=== PATIENT | male | born 1960 | race African-American/Black ===

== ENCOUNTER 2018-12-31 10:52 | Inpatient (IN) | payer OTHER ==
[2018-12-31 12:20] VITALS: BMI 23.6
--- NOTE | 2018-12-31 17:29 | HP ---
COWS - Scale Resting Pulse: 0= [place] 80 or Below Sweatin=Flushed/Facial Moisture Restless Observation: 1= Difficult to Sit Still Pupil Size: 1= Pupils >than Normal Bone or Joint Aches: 1= Mild Discomfort Runny Nose/ Eye Tearin= None GI Upset > 30mins: 3= Vomiting/Diarrhea Tremor Observation: 2= Slight Tremor Visible Yawning Observation: 0= None Anxiety or Irritability: 1=Feels Anxious/Irritable Goose Flesh Skin: 0=Smooth Skin COWS Score: 11 CIWA Score Nausea/Vomitin-Int. Nausea w/Dry Heave Muscle Tremors: 2 Anxiety: 2 Agitation: 2 Paroxysmal Sweats: 3 Orientation: 1-Uncertain about Date Tacttile Disturbances: 0-None Auditory Disturbances: 0-None Visual Disturbances: 0-None Headache: 2-Mild CIWA-Ar Total Score: 16 - Admission Criteria [facility] Guidelines: Admission for Medically Managed Detox: Requires at least one of the followin. CIWA greater than 12 2. Seizures within the past 24 hours 3. Delirium tremens within the past 24 hours 4. Hallucinations within the past 24 hours 5. Acute intervention needed for co occurring medical disorder 6. Acute intervention needed for co occurring psychiatric disorder 7. Severe withdrawal that cannot be handled at a lower level of care (continued vomiting, continued diarrhea, abnormal vital signs) requiring intravenous medication and/or fluids 8. Patient presents the following: CIWA greater than 12 Admission Criteria Met: Admission criteria met Admission ROS [facility] Chief Complaint: Ren Schrader is a 58 year old male presenting for alcohol and heroin. Allergies/Adverse Reactions: Allergies Allergy/AdvReac Type Severity Reaction Status Date / Time No Known Allergies Allergy Verified 12/31/18 12:07 History of Present Illness: Ren Schrader is a 58 year old male presenting for alcohol and heroin. Heroin: 4 bags/day. Uses daily. Last use was yesterday. Denies recent IVDU. Had overdose 3 days ago, was given Narcan. Denies having Narcan kit at home. Longest period of sobriety: 6 years. Relapsed in May because of recent loss of father. Has never been on a methadone maintenance program or on suboxone. Alcohol: 1.5-2 pints per day, 12 pack at least per day. Drinks every day. Last drink was yesterday. Endorses history of seizure. Endorses blackout, falls, head hits. Cocaine: 100-350$ per day. Last use was yesterday. Marijuana: 2-3 blunts per day. Has been to detox in the past. Has completed rehab in the distant past. After detox patient states he wants to complete a rehab program, inpatient program. Medical History: HTN, COPD, asthma Psychiatric History: depression/anxiety Surgical History: denies Smokin cigarettes per day since age 24 Social: apartment, lives with . SSI to pay for drugs and alcohol. Was briefly at [place] [facility] for assessment and deemed more appropriate for detox than psychiatric admission. Was stable for discharge to detox. Will be admitted for alcohol and heroin detox in the setting of multiple medical comorbidities. Exam Limitations: No Limitations - Ebola screening Have you traveled outside of the country in the last 21 days: No Have you had contact with anyone from an Ebola affected area: No Do you have a fever: No - Review of Systems Constitutional: Chills, Loss of Appetite, Changes in sleep EENT: reports: Nose Congestion Respiratory: reports: No Symptoms reported Cardiac: reports: No Symptoms Reported GI: reports: Nausea, Vomiting : reports: No Symptoms Reported Musculoskeletal: reports: Back Pain, Other (hip pain) Integumentary: reports: No Symptoms Reported Neuro: reports: Headache Endocrine: reports: No Symptoms Reported Hematology: reports: No Symptoms Reported Psychiatric: reports: Judgement Intact, Anxious Patient History - Patient Medical History Hx Anemia: No Hx Asthma: Yes Hx Chronic Obstructive Pulmonary Disease (COPD): Yes Hx Cancer: No Hx Cardiac Disorders: No Hx Congestive Heart Failure: No Hx Hypertension: Yes Hx Hypercholesterolemia: No Hx Pacemaker: No HX Cerebrovascular Accident: No Hx Seizures: Yes Hx Dementia: No Hx Diabetes: No Hx Gastrointestinal Disorders: No Hx Liver Disease: No Hx Genitourinary Disorders: No Hx Sexually Transmitted Disorders: No Hx Renal Disease (ESRD): No Hx Thyroid Disease: No Hx Human Immunodeficiency Virus (HIV): No Hx Hepatitis C: No Hx Depression: Yes Hx Suicide Attempt: No Hx Bipolar Disorder: No Hx Schizophrenia: No - Patient Surgical History Past Surgical History: No Hx Neurologic Surgery: No Hx Cataract Extraction: No Hx Cardiac Surgery: No Hx Lung Surgery: No Hx Breast Surgery: No Hx Breast Biopsy: No Hx Abdominal Surgery: No Hx Appendectomy: No Hx Cholecystectomy: No Hx Genitourinary Surgery: No Hx Section: No Hx Orthopedic Surgery: No - PPD History Previous Implant?: No PPD to be Administered?: Yes - Smoking Cessation Smoking history: Current every day smoker Have you smoked in the past 12 months: Yes Aproximately how many cigarettes per day: 15 Initiated information on smoking cessation: Yes 'Breaking Loose' booklet given: 12/31/18 - Substance & Tx. History Hx Alcohol Use: Yes Hx Substance Use: Yes Substance Use Type: Alcohol, Cocaine, Heroin, Marijuana - Substances abused Alcohol Substance route: Oral Frequency: Daily Amount used: 1 pint vodka, 12 pack of beer daily Age of first use: 25 Date of last use: 12/30/18 Heroin Other (specify): SNIFF Frequency: Daily Amount used: 5 BAGS Age of first use: 33 Date of last use: 12/30/18 Cocaine Substance route: Inhalation Frequency: Daily Amount used: 100-350$ Date of last use: 12/30/18 Marijuana/Hashish Substance route: Smoking Frequency: Daily Amount used: 2-3 blunts Date of last use: 12/30/18 Admission Physical Exam BHS - Vital Signs Vital Signs: Vital Signs - 24 hr 12/31/18 12/31/18 12:07 17:08 Temperature 97.4 F L 97.4 F L Pulse Rate 61 61 Respiratory 18 18 Rate Blood Pressure 116/73 116/73 - Physical General Appearance: Yes: Disheveled, Mild Distress HEENTM: Yes: EOMI, Normocephalic, Normal Voice, DENIS, Pharynx Normal, Microcephalic Respiratory: Yes: Chest Non-Tender, Normal Breath Sounds, No Respiratory Distress, No Accessory Muscle Use Neck: Yes: No masses,lesions,Nodules, Trachea in good position Breast: Yes: Breast Exam Deferred Cardiology: Yes: Regular Rhythm, Regular Rate, S1, S2 Abdominal: Yes: Normal Bowel Sounds, Non Tender, Flat, Soft Genitourinary: Yes: Within Normal Limits Back: Yes: Normal Inspection Musculoskeletal: Yes: full range of Motion Extremities: Yes: Normal Capillary Refill, Normal Inspection, Normal Range of Motion, Non-Tender 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: 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: 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 NML intact, Alert, Motor Strength 5/5, Normal Mood /Affect Integumentary: Yes: Dry, Warm, Other (palms dry and cracking RLE with stitches s /p wound) Cleared for Admission [facility] - Detox or Rehab [facility] Level of Care: Medically Managed Detox Regimen/Protocol: Methadone/Librium Breathalyzer - Breathalyzer Breathalyzer: 0 Urine Drug Screen - Test Device Lot number: [id number] Expiration date: 08/28/20 - Control Is test valid?: Yes - Results Drug screen NEGATIVE: No Urine drug screen results: THC-Marijuana, ARNULFO-Cocaine, FEN-Fentanyl, MOP-Opiates Inpatient Rehab Admission - Rehab Decision to Admit Inpatient rehab admission?: No
[2018-12-31] MEDS ORDERED: cloNIDine HCL 0.1 MG TABLET PO PRN (18:00)
[2018-12-31] MEDS ORDERED: chlordiazePOXIDE HCL 25 MG CAPSULE PO PRN (18:00)
[2018-12-31] MEDS ORDERED: MELATONIN 5 MG TABLETS PO PRN (18:00)
[2018-12-31] MEDS ORDERED: MAG HYDROX/AL HYDROX/SIMETH 30 ML UNIT-DOSE CUP PO PRN (18:00)
[2018-12-31] MEDS ORDERED: ACETAMINOPHEN 325 MG TABLET (FP) PO PRN ×2 (18:00)
[2018-12-31] MEDS ORDERED: MENTHOL/PHENOL 1 EACH UD MM PRN (18:00)
[2018-12-31] MEDS ORDERED: MAGNESIUM CITRATE 300 ML BOTTLE PO PRN (18:00)
[2018-12-31] MEDS ORDERED: MAGNESIUM HYDROX 2400MG/30ML ORAL SUSPENSION 30 ML CUP PO PRN (18:00)
[2018-12-31] MEDS ORDERED: hydrOXYzine PAMOATE 25 MG CAPSULE (FP) PO PRN (18:00)
[2018-12-31] MEDS ORDERED: BISMUTH SUBSALICYLATE 524 MG/30 ML UD PO PRN (18:00)
[2018-12-31] MEDS ORDERED: METHADONE HCL 10 MG TABLET (FOR DETOX USE ONLY) PO ONE (19:00)
--- NOTE | 2018-12-31 20:03 | PN ---
Teaching Attending Note Name of Resident: Farhan Vaz ATTENDING PHYSICIAN STATEMENT I saw and evaluated the patient. I reviewed the resident's note and discussed the case with the resident. I agree with the resident's findings and plan as documented. SUBJECTIVE: 58 year old male presenting for alcohol and heroin detox Heroin: 4 bags/day, latest use yesterday. Denies recent IVDU. Had overdose 3 days ago, was given Narcan. Denies having Narcan kit at home. Longest period of sobriety: 6 years. Relapsed in May because of recent loss of father. Has never been on a methadone maintenance program or on suboxone. Alcohol: 1.5-2 pints/ day, 12 pack / day. Cocaine: 100-350$ per day. Latest used yesterday. Marijuana: 2-3 blunts / day. Medical History: HTN, COPD, asthma Psychiatric History: depression/anxiety Surgical History: denies Smokin cigarettes per day since age 24 Social: apartment, lives with . SSI to pay for drugs and alcohol. Was briefly at [place] [facility] for assessment and deemed more appropriate for detox than psychiatric admission. Was stable for discharge to detox. Will be admitted for alcohol and heroin detox in the setting of multiple medical comorbidities. OBJECTIVE: wnwd Vital Signs - 24 hr 12/31/18 12/31/18 12:07 17:08 Temperature 97.4 F L 97.4 F L Pulse Rate 61 61 Respiratory 18 18 Rate Blood Pressure 116/73 116/73 ASSESSMENT AND PLAN: Alcohol dependence - Librium detox Opioid dependence - Methadone detox Cocaine dependence
[2018-12-31] MEDS: chlordiazePOXIDE HCL 25 MG CAPSULE PO SCH (22:09)
[2018-12-31] MEDS: BUDESONIDE/FORMETEROL FUMARATE 160/4.5 mcg INHALER IH SCH (22:09)
[2018-12-31] MEDS: THIAMINE HCL 100 MG TABLET (FP) PO SCH (22:09)
[2018-12-31] MEDS: levETIRAcetam 500 MG TABLET (FP) PO SCH (22:09)
[2019-01-01] MEDS: chlordiazePOXIDE HCL 25 MG CAPSULE PO SCH ×4 (06:29→22:16)
[2019-01-01] MEDS ORDERED: METHADONE HCL 5 MG TABLET (FOR DETOX USE ONLY) PO ONE (10:00)
[2019-01-01] MEDS: BUDESONIDE/FORMETEROL FUMARATE 160/4.5 mcg INHALER IH SCH ×2 (10:24→22:16)
[2019-01-01] MEDS: PRENATAL VITAMINS W/ FOLIC ACID TABLET (FP) PO SCH (10:25)
[2019-01-01] MEDS: levETIRAcetam 500 MG TABLET (FP) PO SCH ×2 (10:25→22:15)
[2019-01-01] MEDS: FLUTICASONE PROP 0.05% 16 GM NASAL SPRAY NS SCH (10:25)
[2019-01-01] MEDS: amLODIPine BESYLATE 5 MG TABLET (FP) PO SCH (10:28)
[2019-01-01] MEDS: NADOLOL 20 MG TABLET (FP) PO SCH (10:28)
[2019-01-01 10:40] LABS: HEMATOCRIT 39.8 % (35.4-49); HEMOGLOBIN 13.5 GM/dL (11.7-16.9); MCH 35.2 pg (25.7-33.7); MCHC 33.9 g/dl (32.0-35.9); MEAN CELL VOLUME 103.9 fl (80-96); MEAN PLT VOLUME 9.7 fl (7.5-11.1); PLATELET COUNT 135 K/MM3 (134-434); RBC 3.83 M/mm3 (4.00-5.60); RDW 12.6 % (11.9-15.9); WHITE BLOOD COUNT 7.1 K/mm3 (4.0-10.0)
[2019-01-01 10:58] LABS: ALBUMIN 3.6 g/dl (3.4-5.0); BILIRUBIN,TOTAL 0.8 mg/dL (0.2-1); BLOOD UREA NITROGEN 14.3 mg/dL (7-18); CALCIUM 9.1 mg/dL (8.5-10.1); POTASSIUM 3.9 mmol/L (3.5-5.1); TOT PROT 7.3 g/dl (6.4-8.2)
[2019-01-01 11:58] LABS: SICKLE CELL SCREEN NEGATIVE (NEGATIVE)
--- NOTE | 2019-01-01 12:02 | EKG ---
Test Reason : Blood Pressure : / mmHG Vent. Rate : 051 BPM Atrial Rate : 051 BPM P-R Int : 160 ms QRS Dur : 072 ms QT Int : 432 ms P-R-T Axes : 040 050 049 degrees QTc Int : 398 ms SINUS BRADYCARDIA MINIMAL VOLTAGE CRITERIA FOR LVH, MAY BE NORMAL VARIANT NO PREVIOUS ECGS AVAILABLE Confirmed by TRICIA CARMICHAEL MD ([id number]) on 01/01/2019 12:02:08 PM Referred By: Confirmed By:TRICIA CARMICHAEL MD
--- NOTE | 2019-01-01 12:10 | CONSULT ---
[facility] Psychiatric Consult - Data Date of interview: 01/01/19 Admission source: [facility] Identifying data: Patient is a 58 year old male, father of two , domiciled, and is supported by [facility]. This is patient's first admission to detox at [facility]. Patient admitted to for alcohol, cocaine, and opiate dependence. Substance Abuse History: Smoking Cessation. Smoking history: Current every day smoker. Have you smoked in the past 12 months: Yes. Aproximately how many cigarettes per day: 15. Initiated information on smoking cessation: Yes. ' Breaking Loose' booklet given: 12/31/18. - Substance & Tx. History. Hx Alcohol Use: Yes. Hx Substance Use: Yes. Substance Use Type: Alcohol, Cocaine , Heroin, Marijuana. - Substances abused. Alcohol. Substance route: Oral. Frequency: Daily. Amount used: 1 pint vodka, 12 pack of beer daily. Age of first use: 25. Date of last use: 12/30/18. Heroin. Other (specify): SNIFF. Frequency: Daily. Amount used: 5 BAGS. Age of first use: 33. Date of last use: 12/30/18. Cocaine. Substance route: Inhalation. Frequency: Daily. Amount used: 100-350$. Date of last use: 12/30/18. Marijuana/ Hashish. Substance route: Smoking. Frequency: Daily. Amount used: 2-3 blunts. Date of last use: 12/30/18 Medical History: Asthma, hypertension. Psychiatric History: Patient's first psychiatric contact was six years ago when he begun to see a psychiatrist who was affilated with [facility]. Stated he was receiving psychiatric care due to his history of PTSD after witnesssing alot of trauma in his life. States that his visits consisted of psychotherapy although was prescribed psychotropic medication which he is unable to recall. Mr. Schrader reports last seeing the psychiatrist in August of 2018. Patient denies history of psychiatric hospitalization and suicide attempt. At present patient reports feeling dissapointment with himself and is experiencing difficulty sleeping. Physical/Sexual Abuse/Trauma History: Reports trauma from witnessing different things but is unable to elaborate. Mental Status Exam - Mental Status Exam Alert and Oriented to: Time, Place, Person Cognitive Function: Good Patient Appearance: Well Groomed Mood: Withdrawn Affect: Mood Congruent Patient Behavior: Cooperative Speech Pattern: Appropriate Voice Loudness: Normal Thought Process: Goal Oriented Thought Disorder: Not Present Hallucinations: Denies Suicidal Ideation: Denies Homicidal Ideation: Denies Insight/Judgement: Poor Sleep: Poorly Appetite: Fair Muscle strength/Tone: Normal Gait/Station: Normal Psychiatric Findings - Problem List ([place] 1, 2,3) (1) Alcohol dependence Status: Acute Qualifiers: Substance use status: in withdrawal Complication of substance-induced condition: uncomplicated Qualified Code(s): F10.230 - Alcohol dependence with withdrawal, uncomplicated (2) Opiate dependence Status: Acute Qualifiers: Substance use status: in withdrawal Qualified Code(s): F11.23 - Opioid dependence with withdrawal (3) Cocaine dependence Status: Acute Qualifiers: Substance use status: in withdrawal Qualified Code(s): F14.23 - Cocaine dependence with withdrawal (4) Substance-induced sleep disorder Status: Acute - Initial Treatment Plan Initial Treatment Plan: Psychoeducation provided. Detoxification in progress. Will order Trazodone 50mg HS. Benefits and side effects discussed. Verbal consent given.
--- NOTE | 2019-01-01 15:55 | PN ---
S CIWA - CIWA Score Nausea/Vomitin Muscle Tremors: 3 Anxiety: 3 Agitation: 2 Paroxysmal Sweats: 2 Orientation: 0-Oriented Tacttile Disturbances: 0-None Auditory Disturbances: 0-None Visual Disturbances: 0-None Headache: 2-Mild CIWA-Ar Total Score: 17 BHS COWS - Scale Resting Pulse: 1= [place] 81-100 Sweatin= Chills/Flushing Restless Observation: 1= Difficult to Sit Still Pupil Size: 0= Normal to Room Light Bone or Joint Aches: 0= None Runny Nose/ Eye Tearin= None GI Upset > 30mins: 3= Vomiting/Diarrhea Tremor Observation of Outstretched Hands: 2= Slight Tremor Visible Yawning Observation: 1= 1-2x During Session Anxiety or Irritability: 2=Irritable/Anxious Goose Flesh Skin: 3=Piloerection COWS Score: 14 S Progress Note (SOAP) Subjective: Anxious, Tremors, Sweating, Vomiting. Objective: PATIENT A & O X 1 (UNCERTAIN ABOUT CURRENT DAY/ DATE AND ABOUT CURRENT LOCATION) . PATIENT OBSERVED AMBULATING ON DETOX UNIT UNASSISTED. IN NO ACUTE DISTRESS. 01/01/19 15:51 Vital Signs Temperature 98.2 F 01/01/19 13:34 Pulse Rate 87 01/01/19 13:34 Respiratory Rate 18 01/01/19 13:34 Blood Pressure 112/75 01/01/19 13:34 O2 Sat by Pulse Oximetry (%) Laboratory Tests 01/01/19 01/01/19 01/01/19 08:00 08:00 08:00 WBC 7.1 RBC 3.83 L Hgb 13.5 Hct 39.8 MCV 103.9 H MCH 35.2 H MCHC 33.9 RDW 12.6 Plt Count 135 MPV 9.7 Sickle Cell Screen Negative Sodium 136 Potassium 3.9 Chloride 97 L Carbon Dioxide 30 Anion Gap 9 BUN 14.3 Creatinine 1.0 Est GFR (CKD-EPI)AfAm 96.40 Est GFR (CKD-EPI)NonAf 83.18 Random Glucose 117 H Calcium 9.1 Total Bilirubin 0.8 AST 29 ALT 27 Alkaline Phosphatase 108 Total Protein 7.3 Albumin 3.6 RPR Titer Nonreactive HIV 1&2 Antibody Screen HIV P24 Antigen 01/01/19 08:00 WBC RBC Hgb Hct MCV MCH MCHC RDW Plt Count MPV Sickle Cell Screen Sodium Potassium Chloride Carbon Dioxide Anion Gap BUN Creatinine Est GFR (CKD-EPI)AfAm Est GFR (CKD-EPI)NonAf Random Glucose Calcium Total Bilirubin AST ALT Alkaline Phosphatase Total Protein Albumin RPR Titer HIV 1&2 Antibody Screen Negative HIV P24 Antigen Negative LABS NOTED. RESULT OF DETOX ADMISSION LEVETIRACETAM LEVEL PENDING. 01/01/19 15:54 Assessment: 01/01/19 15:54 WITHDRAWAL SYMPTOMS. Plan: CONTINUE DETOX.
[2019-01-01] MEDS: traZODone HCL 50 MG TABLET (FP) PO SCH (22:15)
[2019-01-01] MEDS: THIAMINE HCL 100 MG TABLET (FP) PO SCH (22:18)
[2019-01-02] MEDS: chlordiazePOXIDE HCL 25 MG CAPSULE PO SCH ×4 (05:40→22:23)
[2019-01-02] MEDS ORDERED: METHADONE HCL 10 MG TABLET (FOR DETOX USE ONLY) PO ONE (10:00)
[2019-01-02] MEDS: BUDESONIDE/FORMETEROL FUMARATE 160/4.5 mcg INHALER IH SCH ×2 (10:48→22:24)
[2019-01-02] MEDS: levETIRAcetam 500 MG TABLET (FP) PO SCH ×2 (10:49→22:23)
[2019-01-02] MEDS: amLODIPine BESYLATE 5 MG TABLET (FP) PO SCH (10:51)
[2019-01-02] MEDS: NADOLOL 20 MG TABLET (FP) PO SCH (10:51)
[2019-01-02] MEDS: FLUTICASONE PROP 0.05% 16 GM NASAL SPRAY NS SCH (10:52)
[2019-01-02] MEDS: PRENATAL VITAMINS W/ FOLIC ACID TABLET (FP) PO SCH (10:52)
--- NOTE | 2019-01-02 18:34 | PN ---
S CIWA - CIWA Score Nausea/Vomitin-No Nausea/No Vomiting Muscle Tremors: 3 Anxiety: 3 Agitation: 1-Slight > Activity Paroxysmal Sweats: 3 Orientation: 2-Disoriented Date<2 days Tacttile Disturbances: 0-None Auditory Disturbances: 0-None Visual Disturbances: 2-Mild Sensitivity Headache: 0-None Present CIWA-Ar Total Score: 14 BHS COWS - Scale Resting Pulse: 0= [place] 80 or Below Sweatin= Chills/Flushing Restless Observation: 0= Sits Still Pupil Size: 0= Normal to Room Light Bone or Joint Aches: 0= None Runny Nose/ Eye Tearin= None GI Upset > 30mins: 0= None Tremor Observation of Outstretched Hands: 2= Slight Tremor Visible Yawning Observation: 1= 1-2x During Session Anxiety or Irritability: 2=Irritable/Anxious Goose Flesh Skin: 3=Piloerection COWS Score: 9 BHS Progress Note (SOAP) Subjective: Sweating, Tremors, Anxious, Fatigue. Objective: PATIENT A & O X 2 (UNCERTAIN ABOUT CURRENT DAY/ DATE). PATIENT OBSERVED AMBULATING ON DETOX UNIT UNASSISTED. IN NO ACUTE DISTRESS. 01/02/19 18:35 Vital Signs Temperature 97.2 F L 01/02/19 18:17 Pulse Rate 80 01/02/19 18:17 Respiratory Rate 16 01/02/19 18:17 Blood Pressure 121/79 01/02/19 18:17 O2 Sat by Pulse Oximetry (%) Laboratory Tests 01/01/19 01/01/19 01/01/19 08:00 08:00 08:00 WBC 7.1 RBC 3.83 L Hgb 13.5 Hct 39.8 MCV 103.9 H MCH 35.2 H MCHC 33.9 RDW 12.6 Plt Count 135 MPV 9.7 Sickle Cell Screen Negative Sodium 136 Potassium 3.9 Chloride 97 L Carbon Dioxide 30 Anion Gap 9 BUN 14.3 Creatinine 1.0 Est GFR (CKD-EPI)AfAm 96.40 Est GFR (CKD-EPI)NonAf 83.18 Random Glucose 117 H Calcium 9.1 Total Bilirubin 0.8 AST 29 ALT 27 Alkaline Phosphatase 108 Total Protein 7.3 Albumin 3.6 RPR Titer Nonreactive HIV 1&2 Antibody Screen HIV P24 Antigen 01/01/19 08:00 WBC RBC Hgb Hct MCV MCH MCHC RDW Plt Count MPV Sickle Cell Screen Sodium Potassium Chloride Carbon Dioxide Anion Gap BUN Creatinine Est GFR (CKD-EPI)AfAm Est GFR (CKD-EPI)NonAf Random Glucose Calcium Total Bilirubin AST ALT Alkaline Phosphatase Total Protein Albumin RPR Titer HIV 1&2 Antibody Screen Negative HIV P24 Antigen Negative LABS NOTED. RESULT OF DETOX ADMISSION LEVETIRACETAM LEVEL PENDING. 01/02/19 18:36 Assessment: 01/02/19 18:36 WITHDRAWAL SYMPTOMS. Plan: CONTINUE DETOX.
[2019-01-02] MEDS: THIAMINE HCL 100 MG TABLET (FP) PO SCH (22:23)
[2019-01-02] MEDS: traZODone HCL 50 MG TABLET (FP) PO SCH (22:24)
[2019-01-02] MEDS: IBUPROFEN 400 MG TABLET (FP) PO PRN (22:29)
[2019-01-03] MEDS ORDERED: chlordiazePOXIDE HCL 10 MG CAPSULE PO PRN
[2019-01-03] MEDS: chlordiazePOXIDE HCL 10 MG CAPSULE PO SCH ×4 (05:42→22:24)
[2019-01-03] MEDS ORDERED: METHADONE HCL 5 MG TABLET (FOR DETOX USE ONLY) PO ONE (06:00)
[2019-01-03] MEDS: levETIRAcetam 500 MG TABLET (FP) PO SCH ×2 (09:17→22:24)
[2019-01-03] MEDS: PRENATAL VITAMINS W/ FOLIC ACID TABLET (FP) PO SCH (09:17)
[2019-01-03] MEDS: FLUTICASONE PROP 0.05% 16 GM NASAL SPRAY NS SCH (09:18)
[2019-01-03] MEDS: BUDESONIDE/FORMETEROL FUMARATE 160/4.5 mcg INHALER IH SCH ×2 (09:18→22:24)
[2019-01-03] MEDS: amLODIPine BESYLATE 5 MG TABLET (FP) PO SCH (09:19)
[2019-01-03] MEDS: NADOLOL 20 MG TABLET (FP) PO SCH (09:19)
--- NOTE | 2019-01-03 11:11 | PN ---
[facility] CIWA - CIWA Score Nausea/Vomitin-No Nausea/No Vomiting Muscle Tremors: 2 Anxiety: 2 Agitation: 2 Paroxysmal Sweats: 1-Minimal Palms Moist Orientation: 0-Oriented Tacttile Disturbances: 0-None Auditory Disturbances: 1-Very Mild Visual Disturbances: 0-None Headache: 0-None Present CIWA-Ar Total Score: 8 BHS COWS - Scale Resting Pulse: 0= [place] 80 or Below Sweatin= Chills/Flushing Restless Observation: 0= Sits Still Pupil Size: 0= Normal to Room Light Bone or Joint Aches: 1= Mild Discomfort Runny Nose/ Eye Tearin= Nasal Congestion GI Upset > 30mins: 1= Stomach Cramp Tremor Observation of Outstretched Hands: 2= Slight Tremor Visible Yawning Observation: 1= 1-2x During Session Anxiety or Irritability: 1=Feels Anxious/Irritable Goose Flesh Skin: 0=Smooth Skin COWS Score: 8 S Progress Note (SOAP) Subjective: doing well with librium and methadone detox regimen less tremor tolerate food and fluid well Objective: 01/03/19 11:09 Vital Signs Temperature 96.5 F L 01/03/19 09:37 Pulse Rate 58 L 01/03/19 09:37 Respiratory Rate 18 01/03/19 09:37 Blood Pressure 96/63 01/03/19 09:37 O2 Sat by Pulse Oximetry (%) Laboratory Last Values WBC 7.1 K/mm3 (4.0-10.0) 01/01/19 08:00 RBC 3.83 M/mm3 (4.00-5.60) L 01/01/19 08:00 Hgb 13.5 GM/dL (11.7-16.9) 01/01/19 08:00 Hct 39.8 % (35.4-49) 01/01/19 08:00 MCV 103.9 fl (80-96) H 01/01/19 08:00 MCH 35.2 pg (25.7-33.7) H 01/01/19 08:00 MCHC 33.9 g/dl (32.0-35.9) 01/01/19 08:00 RDW 12.6 % (11.9-15.9) 01/01/19 08:00 Plt Count 135 K/MM3 (134-434) 01/01/19 08:00 MPV 9.7 fl (7.5-11.1) 01/01/19 08:00 Sickle Cell Screen Negative (NEGATIVE) 01/01/19 08:00 Sodium 136 mmol/L (136-145) 01/01/19 08:00 Potassium 3.9 mmol/L (3.5-5.1) 01/01/19 08:00 Chloride 97 mmol/L (98-107) L 01/01/19 08:00 Carbon Dioxide 30 mmol/L (21-32) 01/01/19 08:00 Anion Gap 9 MMOL/L (8-16) 01/01/19 08:00 BUN 14.3 mg/dL (7-18) 01/01/19 08:00 Creatinine 1.0 mg/dL (0.55-1.3) 01/01/19 08:00 Est GFR (CKD-EPI)AfAm 96.40 01/01/19 08:00 Est GFR (CKD-EPI)NonAf 83.18 01/01/19 08:00 Random Glucose 117 mg/dL (74-106) H 01/01/19 08:00 Calcium 9.1 mg/dL (8.5-10.1) 01/01/19 08:00 Total Bilirubin 0.8 mg/dL (0.2-1) 01/01/19 08:00 AST 29 U/L (15-37) 01/01/19 08:00 ALT 27 U/L (13-61) 01/01/19 08:00 Alkaline Phosphatase 108 U/L (45-117) 01/01/19 08:00 Total Protein 7.3 g/dl (6.4-8.2) 01/01/19 08:00 Albumin 3.6 g/dl (3.4-5.0) 01/01/19 08:00 RPR Titer Nonreactive (NONREACTIVE) 01/01/19 08:00 HIV 1&2 Antibody Screen Negative 01/01/19 08:00 HIV P24 Antigen Negative 01/01/19 08:00 lab noted Assessment: 01/03/19 11:10 alcohol and opiate withdrawal sx discuss medication assisted treatment program Plan: continue librium and methadone detox regimen 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
[2019-01-03] MEDS: traZODone HCL 50 MG TABLET (FP) PO SCH (22:24)
[2019-01-03] MEDS: THIAMINE HCL 100 MG TABLET (FP) PO SCH (22:24)
[2019-01-03] MEDS: IBUPROFEN 400 MG TABLET (FP) PO PRN (22:25)
[2019-01-04] MEDS: chlordiazePOXIDE HCL 10 MG CAPSULE PO SCH ×2 (06:52→17:08)
--- NOTE | 2019-01-04 07:48 | PN ---
[facility] Progress Note Note: CLIENT SEEN FOR BUMPING HIS HEAD. CLIENT REPORTS HE WAS LOSING HIS BALANCE AND GRABBED HIS LOCKER NOT TO FALL. HE BUMPED HIS HEAD ON THE LOCK "NOT HARD" HE LEANED AGAINST THE LOCKER DOOR. CLIENT DENIES DIZZINESS, LOC, FALLING, C.P., VISUAL DISTURBANCES. Last Vital Signs Temp Pulse Resp BP Pulse Ox 97.0 F L 79 18 107/60 01/04/19 07:43 01/04/19 07:43 01/04/19 07:43 01/04/19 07:43 CLIENT SEEN IN BATHROOM WASHING UP AT SINK. HE IS A/O X3 NAD. CLIENT AMBULATING W/O DIFFICULTY RE-ENACTING THE EPISODE. HEENT- NCAT, PERRLA, EOMI SKIN- INTACT EXTREMITIES- NO INJURIES, FROM W/O LIMITATIONS, GAIT STEADY A/P REPORTED BUMP TO HEAD CONTINUE TO MONITOR/MAINTAIN SAFETY.
--- NOTE | 2019-01-04 09:33 | PN ---
[facility] CIWA - CIWA Score Nausea/Vomitin-No Nausea/No Vomiting Muscle Tremors: 1-None Visible, but Pound Anxiety: 2 Agitation: 1-Slight > Activity Paroxysmal Sweats: No Perspiration Orientation: 0-Oriented Tacttile Disturbances: 0-None Auditory Disturbances: 0-None Visual Disturbances: 0-None Headache: 0-None Present CIWA-Ar Total Score: 4 BHS COWS - Scale Resting Pulse: 0= [place] 80 or Below Sweatin= Chills/Flushing Restless Observation: 0= Sits Still Pupil Size: 0= Normal to Room Light Bone or Joint Aches: 1= Mild Discomfort Runny Nose/ Eye Tearin= None GI Upset > 30mins: 0= None Tremor Observation of Outstretched Hands: 1= Tremor Pound, Not Seen Yawning Observation: 0= None Anxiety or Irritability: 1=Feels Anxious/Irritable Goose Flesh Skin: 0=Smooth Skin COWS Score: 4 S Progress Note (SOAP) Subjective: doing well with librium and methadone detox regimen bump head to locker door earlier today patient ate breakfast no nausea no vomiting ambulating to bathroom steady gait, alert oriented x 3 hypertensive medication and seizure and asthma medication sent to preferred pharmacy encourage methadone assisted treatment program 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7 fl (7.5-11.1) 01/01/19 08:00 Sickle Cell Screen Negative (NEGATIVE) 01/01/19 08:00 Sodium 136 mmol/L (136-145) 01/01/19 08:00 Potassium 3.9 mmol/L (3.5-5.1) 01/01/19 08:00 Chloride 97 mmol/L (98-107) L 01/01/19 08:00 Carbon Dioxide 30 mmol/L (21-32) 01/01/19 08:00 Anion Gap 9 MMOL/L (8-16) 01/01/19 08:00 BUN 14.3 mg/dL (7-18) 01/01/19 08:00 Creatinine 1.0 mg/dL (0.55-1.3) 01/01/19 08:00 Est GFR (CKD-EPI)AfAm 96.40 01/01/19 08:00 Est GFR (CKD-EPI)NonAf 83.18 01/01/19 08:00 Random Glucose 117 mg/dL (74-106) H 01/01/19 08:00 Calcium 9.1 mg/dL (8.5-10.1) 01/01/19 08:00 Total Bilirubin 0.8 mg/dL (0.2-1) 01/01/19 08:00 AST 29 U/L (15-37) 01/01/19 08:00 ALT 27 U/L (13-61) 01/01/19 08:00 Alkaline Phosphatase 108 U/L (45-117) 01/01/19 08:00 Total Protein 7.3 g/dl (6.4-8.2) 01/01/19 08:00 Albumin 3.6 g/dl (3.4-5.0) 01/01/19 08:00 RPR Titer Nonreactive (NONREACTIVE) 01/01/19 08:00 HIV 1&2 Antibody Screen Negative 01/01/19 08:00 HIV P24 Antigen Negative 01/01/19 08:00 lab noted Assessment: 01/04/19 09:31 alcohol and opiate withdrawal sx Plan: continue librium and methadone detox regimen strong recommend the patient follow up with primary care neurologist and tobacco 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
[2019-01-04] MEDS: FLUTICASONE PROP 0.05% 16 GM NASAL SPRAY NS SCH (11:04)
[2019-01-04] MEDS: NADOLOL 20 MG TABLET (FP) PO SCH (11:04)
[2019-01-04] MEDS: amLODIPine BESYLATE 5 MG TABLET (FP) PO SCH (11:04)
[2019-01-04] MEDS: levETIRAcetam 500 MG TABLET (FP) PO SCH ×2 (11:42→22:00)
[2019-01-04] MEDS: BUDESONIDE/FORMETEROL FUMARATE 160/4.5 mcg INHALER IH SCH ×2 (11:43→22:02)
[2019-01-04] MEDS: PRENATAL VITAMINS W/ FOLIC ACID TABLET (FP) PO SCH (11:43)
--- NOTE | 2019-01-04 16:15 | PN ---
BHS Progress Note (SOAP) Subjective: patient pump his occipital to looker door around 6 am today patient is alert oriented x 3 [address] steady gait discuss aftercare with staff occipital skin intact no redness no swell none tender on palpation patient denies dizziness, denies blurred vision, denies shortness of breath denies neck pain cervical paraspine muscles none tender neck full range of motion no nausea no vomiting A no sign of concussion P no requirement for neuro check
--- NOTE | 2019-01-04 18:57 | PN ---
S Progress Note Note: Patient bumped head greater 12 hours ago and is refusing CT scan. Patient is alert and oriented. Gait steady. Denies headache or visual changes. Vital Signs 01/04/19 01/04/19 01/04/19 14:01 17:23 19:00 Temperature 97.0 F L 97.5 F L 97.5 F L Pulse Rate 68 83 65 Respiratory 18 18 18 Rate Blood Pressure 101/65 141/101 H 126/73 CONTINUE NEURO CHECKS.
[2019-01-04] MEDS: traZODone HCL 50 MG TABLET (FP) PO SCH (22:00)
[2019-01-04] MEDS: THIAMINE HCL 100 MG TABLET (FP) PO SCH (22:00)
[2019-01-05] MEDS ORDERED: chlordiazePOXIDE HCL 10 MG CAPSULE PO ONE (05:00)
[2019-01-05 09:17] VITALS: BP 132/75; PULSE 97; TEMP 98.1
[2019-01-05] MEDS: FLUTICASONE PROP 0.05% 16 GM NASAL SPRAY NS SCH (09:49)
[2019-01-05] MEDS: NADOLOL 20 MG TABLET (FP) PO SCH (09:49)
[2019-01-05] MEDS: BUDESONIDE/FORMETEROL FUMARATE 160/4.5 mcg INHALER IH SCH (09:49)
[2019-01-05] MEDS: levETIRAcetam 500 MG TABLET (FP) PO SCH (09:49)
[2019-01-05] MEDS: amLODIPine BESYLATE 5 MG TABLET (FP) PO SCH (09:49)
[2019-01-05] MEDS: PRENATAL VITAMINS W/ FOLIC ACID TABLET (FP) PO SCH (09:50)
--- NOTE | 2019-01-05 10:46 | DS ---
[facility] Detox Discharge Summary Admission Date: 12/31/18 Discharge Date: 01/05/19 - History Present History: Alcohol Dependence, Cannabis Dependence, Cocaine Dependence, Opioid Dependence Additional Comments: PATIENT GOING TO [facility] ([place]) FOR AFTERCARE. PATIENT WAS DISCHARGED FROM DETOX UNIT TO BE TAKEN OVER TO REHAB UNIT IN STABLE MEDICAL CONDITION. Pertinent Past History: HTN, Asthma, C.O.P.D., Depression, Anxiety, Nicotine Dependence, History Of Seizures. - Physical Exam Results Vital Signs: Vital Signs Temperature 98.1 F 01/05/19 09:16 Pulse Rate 97 H 01/05/19 09:16 Respiratory Rate 18 01/05/19 09:16 Blood Pressure 132/75 01/05/19 09:16 O2 Sat by Pulse Oximetry (%) Pertinent Admission Physical Exam Findings: WITHDRAWAL SYMPTOMS. Laboratory Tests 01/01/19 01/01/19 01/01/19 08:00 08:00 08:00 WBC 7.1 RBC 3.83 L Hgb 13.5 Hct 39.8 MCV 103.9 H MCH 35.2 H MCHC 33.9 RDW 12.6 Plt Count 135 MPV 9.7 Sickle Cell Screen Negative Sodium 136 Potassium 3.9 Chloride 97 L Carbon Dioxide 30 Anion Gap 9 BUN 14.3 Creatinine 1.0 Est GFR (CKD-EPI)AfAm 96.40 Est GFR (CKD-EPI)NonAf 83.18 Random Glucose 117 H Calcium 9.1 Total Bilirubin 0.8 AST 29 ALT 27 Alkaline Phosphatase 108 Total Protein 7.3 Albumin 3.6 Levetiracetam RPR Titer Nonreactive HIV 1&2 Antibody Screen HIV P24 Antigen 01/01/19 01/01/19 08:00 08:00 WBC RBC Hgb Hct MCV MCH MCHC RDW Plt Count MPV Sickle Cell Screen Sodium Potassium Chloride Carbon Dioxide Anion Gap BUN Creatinine Est GFR (CKD-EPI)AfAm Est GFR (CKD-EPI)NonAf Random Glucose Calcium Total Bilirubin AST ALT Alkaline Phosphatase Total Protein Albumin Levetiracetam 27.2 RPR Titer HIV 1&2 Antibody Screen Negative HIV P24 Antigen Negative LABS NOTED. - Treatment Hospital Course: Detox Protocol Followed, Detoxed Safely, Responded well, Discharged Condition Good, Rehab Referral Accepted Patient has Accepted a Rehab Referral to: [facility] ([place], [place]). - Medication Discharge Medications: Ambulatory Orders Fluticasone Prop 0.05% Nasal [Flonase -] 2 puff IH DAILY 12/31/18 Nadolol 20 mg PO DAILY 12/31/18 Omeprazole 20 mg PO DAILY 12/31/18 Naloxone HCl [Narcan] 4 mg NS ASDIR PRN #1 spray 01/03/19 Amlodipine Besylate [Norvasc -] 5 mg PO DAILY #30 tablet 01/04/19 Budesonide/Formeterol Fumarate [SYMBICORT 160/4.5mcg -] 2 puff IH BID #1 inhaler 01/04/19 Nadolol [Corgard -] 20 mg PO DAILY #30 tablet 01/04/19 levETIRAcetam [Keppra -] 4 tab PO BID #60 tablet 01/04/19 - Diagnosis (1) Cannabis dependence, uncomplicated Current Visit: Yes Status: Acute (2) Alcohol dependence Current Visit: Yes Status: Acute Qualifiers: Substance use status: in withdrawal Complication of substance-induced condition: uncomplicated Qualified Code(s): F10.230 - Alcohol dependence with withdrawal, uncomplicated (3) Cocaine dependence Current Visit: Yes Status: Acute Qualifiers: Substance use status: in withdrawal Qualified Code(s): F14.23 - Cocaine dependence with withdrawal (4) Opiate dependence Current Visit: Yes Status: Acute Qualifiers: Substance use status: in withdrawal Qualified Code(s): F11.23 - Opioid dependence with withdrawal (5) Substance-induced sleep disorder Current Visit: Yes Status: Acute - AMA Did Patient Leave Against Medical Advice: No BHS COWS - Scale Resting Pulse: 1= [place] 81-100 Sweatin= No chills or Flushing Restless Observation: 1= Difficult to Sit Still Pupil Size: 0= Normal to Room Light Bone or Joint Aches: 1= Mild Discomfort Runny Nose/ Eye Tearin= None GI Upset > 30mins: 0= None Tremor Observation of Outstretched Hands: 0= None Yawning Observation: 1= 1-2x During Session Anxiety or Irritability: 1=Feels Anxious/Irritable Goose Flesh Skin: 0=Smooth Skin COWS Score: 5 BHS CIWA - CIWA Score Nausea/Vomitin-No Nausea/No Vomiting Muscle Tremors: None Anxiety: 2 Agitation: 2 Paroxysmal Sweats: No Perspiration Orientation: 0-Oriented Tacttile Disturbances: 0-None Auditory Disturbances: 0-None Visual Disturbances: 0-None Headache: 0-None Present CIWA-Ar Total Score: 4
== END 2019-01-05 10:50 | disposition other institution (70) | DRG 773 ==
LOC: YASAS 10:52 → Y3N 18:12
PROVIDERS: ADMIT Surgery; ATTEND Surgery
PROC: HZ2ZZZZ Detoxification Services for Substance Abuse Treatment (ICD-10-PCS; principal; 2018-12-31)
DX: F11.23 Opioid dependence with withdrawal (principal); F10.230 Alcohol dependence with withdrawal, uncomplicated; F14.20 Cocaine dependence, uncomplicated; F12.20 Cannabis dependence, uncomplicated; F17.210 Nicotine dependence, cigarettes, uncomplicated; F19.282 Other psychoactive substance dependence with psychoactive substance-induced sleep disorder; I10 Essential (primary) hypertension; G40.909 Epilepsy, unspecified, not intractable, without status epilepticus; J45.909 Unspecified asthma, uncomplicated; S09.90XA Unspecified injury of head, initial encounter; W22.8XXA Striking against or struck by other objects, initial encounter; Y93.89 Activity, other specified; Y92.238 Other place in hospital as the place of occurrence of the external cause
CPT/HCPCS: 36415; 80053; 80177; 85027; 85660; 86593; 87389; 93005; 93010

== ENCOUNTER 2019-01-05 10:54 | Inpatient (IN) | payer OTHER ==
[2019-01-05] MEDS ORDERED: FLU VACCINE QUAD 60 MCG/0.5 ML (MDV 19-20) IM ONE ×2 (11:31→14:42)
[2019-01-05] MEDS ORDERED: MAG HYDROX/AL HYDROX/SIMETH 30 ML UNIT-DOSE CUP PO PRN (14:02)
[2019-01-05] MEDS ORDERED: P-EPHED 60MG/TRIPROLIDI 2.5MG TABLET PO PRN (14:02)
[2019-01-05] MEDS ORDERED: MENTHOL/PHENOL 1 EACH UD MM PRN (14:02)
[2019-01-05] MEDS ORDERED: ACETAMINOPHEN 325 MG TABLET (FP) PO PRN (14:02)
[2019-01-05] MEDS ORDERED: guaiFENesin 200 MG/10 ML 10 ML UNIT-DOSE CUPS PO PRN (14:02)
[2019-01-05] MEDS ORDERED: LOPERAMIDE HCL 2 MG CAPSULE PO PRN (14:02)
[2019-01-05] MEDS ORDERED: MAGNESIUM HYDROX 2400MG/30ML ORAL SUSPENSION 30 ML CUP PO PRN (14:02)
[2019-01-05] MEDS ORDERED: MAGNESIUM CITRATE 300 ML BOTTLE PO PRN (14:02)
[2019-01-05] MEDS ORDERED: IBUPROFEN 400 MG TABLET (FP) PO PRN (14:02)
--- NOTE | 2019-01-05 14:13 | HP ---
[facility] Rehab Assess/Revision - Admission History Admitted to Rehab from: [facility] Date of Admission to Rehab: 01/05/2019 - Vital signs Vital Signs: NOTED; STABLE. - Findings Detox History & Physical reviewed: Yes Concur with findings: Yes Comments/Additional Findings: PATIENT'S MEDICAL / MEDICATION HISTORY REVIEWED PRIOR TO DISCHARGE FROM DETOX UNIT. PATIENT WAS DISCHARGED FROM DETOX UNIT TO BE TAKEN OVER TO REHAB UNIT IN STABLE MEDICAL CONDITION. ONCE ON REHAB UNIT, 5 SUTURES REMOVED FROMRIGHT LOWER LEG, JUST ANTERIOR TO TIBIA. PATIENT REPROTS THAT SUTURES WERE PLACED APPROX. 10 DAYS AGO AFTER HE FELL AND INJURED AREA. NO ERYTHEMA, SWELLING, OR DISCHARGE NOTED AT AFFECTED SITE. FOLLOW-UP WOUND CARE ORDERED WHILE APTIENT IS ADMITTED ON REHAB UNIT. Inpatient Rehab Admission - Rehab Decision to Admit Inpatient rehab admission?: Yes - Initial Determination Are CD services needed?: Yes Free of communicable disease: Yes Not in need of hospitalization: Yes - Rehab Admission Criteria Previous failed treatment: Yes Poor recovery environment: Yes Comorbidities: Yes Lacks judgement: No Patient is meeting Inpatient Rehab admission criteria:: Yes
[2019-01-05] MEDS: BACITRACIN 15 GM TUBE TOPICAL OINTMENT TP SCH (21:21)
[2019-01-05] MEDS: THIAMINE HCL 100 MG TABLET (FP) PO SCH (21:21)
[2019-01-05] MEDS: levETIRAcetam 500 MG TABLET (FP) PO SCH (21:22)
[2019-01-05] MEDS: BUDESONIDE/FORMETEROL FUMARATE 160/4.5 mcg INHALER IH SCH (21:22)
[2019-01-05] MEDS: MELATONIN 5 MG TABLETS PO PRN (21:23)
[2019-01-05] MEDS ORDERED: traZODone HCL 50 MG TABLET (FP) PO SCH (22:00)
[2019-01-06] MEDS: amLODIPine BESYLATE 5 MG TABLET (FP) PO SCH (09:44)
[2019-01-06] MEDS: levETIRAcetam 500 MG TABLET (FP) PO SCH ×2 (09:44→21:06)
[2019-01-06] MEDS: PRENATAL VITAMINS W/ FOLIC ACID TABLET (FP) PO SCH (09:44)
[2019-01-06] MEDS: BUDESONIDE/FORMETEROL FUMARATE 160/4.5 mcg INHALER IH SCH ×2 (09:46→21:07)
[2019-01-06] MEDS: BACITRACIN 15 GM TUBE TOPICAL OINTMENT TP SCH ×2 (09:47→21:06)
[2019-01-06] MEDS: NADOLOL 20 MG TABLET (FP) PO SCH (09:48)
[2019-01-06] MEDS: FLUTICASONE PROP 0.05% 16 GM NASAL SPRAY NS SCH (09:48)
[2019-01-06] MEDS ORDERED: MINERAL OIL/PETROLAT/WATER TOPICAL CREAM 113 GM JAR TP ONE (16:39)
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
[2019-01-06] MEDS: MELATONIN 5 MG TABLETS PO PRN (21:06)
[2019-01-06] MEDS: MIRTAZAPINE 15 MG TABLET (FP) PO SCH (21:07)
[2019-01-06] MEDS: THIAMINE HCL 100 MG TABLET (FP) PO SCH (21:07)
[2019-01-07] MEDS: NADOLOL 20 MG TABLET (FP) PO SCH (09:45)
[2019-01-07] MEDS: FLUTICASONE PROP 0.05% 16 GM NASAL SPRAY NS SCH (09:45)
[2019-01-07] MEDS: BACITRACIN 15 GM TUBE TOPICAL OINTMENT TP SCH ×2 (09:45→21:14)
[2019-01-07] MEDS: PRENATAL VITAMINS W/ FOLIC ACID TABLET (FP) PO SCH (09:45)
[2019-01-07] MEDS: levETIRAcetam 500 MG TABLET (FP) PO SCH ×2 (09:45→21:14)
[2019-01-07] MEDS: amLODIPine BESYLATE 5 MG TABLET (FP) PO SCH (09:45)
[2019-01-07] MEDS: BUDESONIDE/FORMETEROL FUMARATE 160/4.5 mcg INHALER IH SCH ×2 (09:45→21:15)
[2019-01-07] MEDS: MINERAL OIL/PETROLAT/WATER TOPICAL CREAM 454 GM JAR TP PRN (09:45)
[2019-01-07] MEDS: THIAMINE HCL 100 MG TABLET (FP) PO SCH (21:14)
[2019-01-07] MEDS: MIRTAZAPINE 15 MG TABLET (FP) PO SCH (21:14)
[2019-01-07] MEDS: MELATONIN 5 MG TABLETS PO PRN (21:14)
[2019-01-08] MEDS ORDERED: PT OWN MED DRAWER 7, Y5N ONE (08:53)
[2019-01-08] MEDS: amLODIPine BESYLATE 5 MG TABLET (FP) PO SCH (09:57)
[2019-01-08] MEDS: levETIRAcetam 500 MG TABLET (FP) PO SCH ×2 (09:57→21:19)
[2019-01-08] MEDS: PRENATAL VITAMINS W/ FOLIC ACID TABLET (FP) PO SCH (09:57)
[2019-01-08] MEDS: NADOLOL 20 MG TABLET (FP) PO SCH (09:57)
[2019-01-08] MEDS: BACITRACIN 15 GM TUBE TOPICAL OINTMENT TP SCH ×2 (10:00→21:20)
[2019-01-08] MEDS: FLUTICASONE PROP 0.05% 16 GM NASAL SPRAY NS SCH (10:00)
[2019-01-08] MEDS: MINERAL OIL/PETROLAT/WATER TOPICAL CREAM 454 GM JAR TP PRN (10:00)
[2019-01-08] MEDS: BUDESONIDE/FORMETEROL FUMARATE 160/4.5 mcg INHALER IH SCH ×2 (10:01→21:21)
[2019-01-08] MEDS: THIAMINE HCL 100 MG TABLET (FP) PO SCH (21:19)
[2019-01-08] MEDS: MIRTAZAPINE 15 MG TABLET (FP) PO SCH (21:20)
[2019-01-08] MEDS: MELATONIN 5 MG TABLETS PO PRN (21:20)
[2019-01-09] MEDS: levETIRAcetam 500 MG TABLET (FP) PO SCH ×2 (10:15→21:25)
[2019-01-09] MEDS: NADOLOL 20 MG TABLET (FP) PO SCH (10:15)
[2019-01-09] MEDS: PRENATAL VITAMINS W/ FOLIC ACID TABLET (FP) PO SCH (10:15)
[2019-01-09] MEDS: amLODIPine BESYLATE 5 MG TABLET (FP) PO SCH (10:15)
[2019-01-09] MEDS: FLUTICASONE PROP 0.05% 16 GM NASAL SPRAY NS SCH (10:16)
[2019-01-09] MEDS: MINERAL OIL/PETROLAT/WATER TOPICAL CREAM 454 GM JAR TP PRN (10:16)
[2019-01-09] MEDS: BUDESONIDE/FORMETEROL FUMARATE 160/4.5 mcg INHALER IH SCH ×2 (10:17→21:25)
[2019-01-09] MEDS ORDERED: PT OWN MED DRAWER 7, Y5N ONE ×3 (10:18→20:08)
[2019-01-09] MEDS: BACITRACIN 15 GM TUBE TOPICAL OINTMENT TP SCH ×2 (10:18→21:24)
[2019-01-09] MEDS: THIAMINE HCL 100 MG TABLET (FP) PO SCH (21:24)
[2019-01-09] MEDS: MIRTAZAPINE 15 MG TABLET (FP) PO SCH (21:25)
[2019-01-09] MEDS: MELATONIN 5 MG TABLETS PO PRN (21:26)
[2019-01-10] MEDS ORDERED: levETIRAcetam 250 MG TABLET (FP) PO ONE ×2 (09:02→19:54)
[2019-01-10] MEDS ORDERED: PT OWN MED DRAWER 7, Y5N ONE ×3 (09:03→21:15)
[2019-01-10] MEDS: BUDESONIDE/FORMETEROL FUMARATE 160/4.5 mcg INHALER IH SCH ×2 (09:58→21:13)
[2019-01-10] MEDS: FLUTICASONE PROP 0.05% 16 GM NASAL SPRAY NS SCH (09:58)
[2019-01-10] MEDS: PRENATAL VITAMINS W/ FOLIC ACID TABLET (FP) PO SCH (09:59)
[2019-01-10] MEDS: BACITRACIN 15 GM TUBE TOPICAL OINTMENT TP SCH ×2 (09:59→21:13)
[2019-01-10] MEDS: NADOLOL 20 MG TABLET (FP) PO SCH (09:59)
[2019-01-10] MEDS: amLODIPine BESYLATE 5 MG TABLET (FP) PO SCH (09:59)
[2019-01-10] MEDS: levETIRAcetam 500 MG TABLET (FP) PO SCH ×2 (10:00→21:13)
[2019-01-10] MEDS: MIRTAZAPINE 15 MG TABLET (FP) PO SCH (21:12)
[2019-01-10] MEDS: THIAMINE HCL 100 MG TABLET (FP) PO SCH (21:12)
[2019-01-10] MEDS: MELATONIN 5 MG TABLETS PO PRN (21:14)
[2019-01-10] MEDS: MINERAL OIL/PETROLAT/WATER TOPICAL CREAM 454 GM JAR TP PRN (21:15)
[2019-01-11] MEDS ORDERED: PT OWN MED DRAWER 7, Y5N ONE ×2 (08:36→11:41)
[2019-01-11] MEDS: FLUTICASONE PROP 0.05% 16 GM NASAL SPRAY NS SCH (09:27)
[2019-01-11] MEDS: BUDESONIDE/FORMETEROL FUMARATE 160/4.5 mcg INHALER IH SCH ×2 (09:27→21:20)
[2019-01-11] MEDS: levETIRAcetam 500 MG TABLET (FP) PO SCH ×2 (09:28→21:20)
[2019-01-11] MEDS: NADOLOL 20 MG TABLET (FP) PO SCH (09:28)
[2019-01-11] MEDS: PRENATAL VITAMINS W/ FOLIC ACID TABLET (FP) PO SCH (09:28)
[2019-01-11] MEDS: amLODIPine BESYLATE 5 MG TABLET (FP) PO SCH (09:28)
[2019-01-11] MEDS: BACITRACIN 15 GM TUBE TOPICAL OINTMENT TP SCH ×2 (09:28→21:20)
[2019-01-11] MEDS: MIRTAZAPINE 15 MG TABLET (FP) PO SCH (21:20)
[2019-01-11] MEDS: THIAMINE HCL 100 MG TABLET (FP) PO SCH (21:20)
[2019-01-11] MEDS: MELATONIN 5 MG TABLETS PO PRN (21:20)
[2019-01-12] MEDS ORDERED: PT OWN MED DRAWER 7, Y5N ONE ×2 (08:50→21:41)
[2019-01-12] MEDS: amLODIPine BESYLATE 5 MG TABLET (FP) PO SCH (10:17)
[2019-01-12] MEDS: NADOLOL 20 MG TABLET (FP) PO SCH (10:17)
[2019-01-12] MEDS: FLUTICASONE PROP 0.05% 16 GM NASAL SPRAY NS SCH (10:17)
[2019-01-12] MEDS: PRENATAL VITAMINS W/ FOLIC ACID TABLET (FP) PO SCH (10:17)
[2019-01-12] MEDS: BUDESONIDE/FORMETEROL FUMARATE 160/4.5 mcg INHALER IH SCH ×2 (10:17→21:38)
[2019-01-12] MEDS: levETIRAcetam 500 MG TABLET (FP) PO SCH ×2 (10:17→21:38)
[2019-01-12] MEDS: BACITRACIN 15 GM TUBE TOPICAL OINTMENT TP SCH ×2 (10:18→21:39)
[2019-01-12] MEDS: THIAMINE HCL 100 MG TABLET (FP) PO SCH (21:38)
[2019-01-12] MEDS: MIRTAZAPINE 15 MG TABLET (FP) PO SCH (21:38)
[2019-01-13] MEDS: PRENATAL VITAMINS W/ FOLIC ACID TABLET (FP) PO SCH (10:24)
[2019-01-13] MEDS: NADOLOL 20 MG TABLET (FP) PO SCH (10:24)
[2019-01-13] MEDS: levETIRAcetam 500 MG TABLET (FP) PO SCH ×2 (10:24→21:49)
[2019-01-13] MEDS: amLODIPine BESYLATE 5 MG TABLET (FP) PO SCH (10:24)
[2019-01-13] MEDS: BUDESONIDE/FORMETEROL FUMARATE 160/4.5 mcg INHALER IH SCH ×2 (10:25→21:49)
[2019-01-13] MEDS: FLUTICASONE PROP 0.05% 16 GM NASAL SPRAY NS SCH (10:25)
[2019-01-13] MEDS: MINERAL OIL/PETROLAT/WATER TOPICAL CREAM 454 GM JAR TP PRN (10:27)
[2019-01-13] MEDS: BACITRACIN 15 GM TUBE TOPICAL OINTMENT TP SCH ×2 (10:27→21:49)
[2019-01-13] MEDS ORDERED: PT OWN MED DRAWER 7, Y5N ONE (10:28)
[2019-01-13] MEDS: THIAMINE HCL 100 MG TABLET (FP) PO SCH (21:49)
[2019-01-13] MEDS: MIRTAZAPINE 15 MG TABLET (FP) PO SCH (21:49)
[2019-01-13] MEDS: MELATONIN 5 MG TABLETS PO PRN (21:49)
[2019-01-14] MEDS: BUDESONIDE/FORMETEROL FUMARATE 160/4.5 mcg INHALER IH SCH ×2 (10:14→21:40)
[2019-01-14] MEDS: NADOLOL 20 MG TABLET (FP) PO SCH (10:15)
[2019-01-14] MEDS: amLODIPine BESYLATE 5 MG TABLET (FP) PO SCH (10:15)
[2019-01-14] MEDS: levETIRAcetam 500 MG TABLET (FP) PO SCH ×2 (10:15→21:39)
[2019-01-14] MEDS: FLUTICASONE PROP 0.05% 16 GM NASAL SPRAY NS SCH (10:15)
[2019-01-14] MEDS: PRENATAL VITAMINS W/ FOLIC ACID TABLET (FP) PO SCH (10:15)
[2019-01-14] MEDS: BACITRACIN 15 GM TUBE TOPICAL OINTMENT TP SCH ×2 (10:18→21:39)
[2019-01-14] MEDS ORDERED: PT OWN MED DRAWER 7, Y5N ONE (10:18)
[2019-01-14] MEDS: MINERAL OIL/PETROLAT/WATER TOPICAL CREAM 454 GM JAR TP PRN (10:18)
[2019-01-14] MEDS: THIAMINE HCL 100 MG TABLET (FP) PO SCH (21:39)
[2019-01-14] MEDS: MIRTAZAPINE 15 MG TABLET (FP) PO SCH (21:39)
[2019-01-14] MEDS: MELATONIN 5 MG TABLETS PO PRN (21:40)
[2019-01-15] MEDS: MINERAL OIL/PETROLAT/WATER TOPICAL CREAM 454 GM JAR TP PRN (10:07)
[2019-01-15] MEDS: amLODIPine BESYLATE 5 MG TABLET (FP) PO SCH (10:08)
[2019-01-15] MEDS: BACITRACIN 15 GM TUBE TOPICAL OINTMENT TP SCH ×2 (10:08→21:51)
[2019-01-15] MEDS: levETIRAcetam 500 MG TABLET (FP) PO SCH ×2 (10:09→21:50)
[2019-01-15] MEDS: NADOLOL 20 MG TABLET (FP) PO SCH (10:09)
[2019-01-15] MEDS: PRENATAL VITAMINS W/ FOLIC ACID TABLET (FP) PO SCH (10:10)
[2019-01-15] MEDS: FLUTICASONE PROP 0.05% 16 GM NASAL SPRAY NS SCH (10:10)
[2019-01-15] MEDS: BUDESONIDE/FORMETEROL FUMARATE 160/4.5 mcg INHALER IH SCH ×2 (10:10→21:50)
[2019-01-15] MEDS ORDERED: hydrOXYzine PAMOATE 50 MG CAPSULE (FP) PO ONE (14:34)
--- NOTE | 2019-01-15 14:38 | PN ---
BHS Progress Note Note: Patient c/o anxiety/restlessness due to inability to sleep. Patient states he has been up since this 5:30am. Vital Signs Temperature 98.1 F 01/15/19 07:09 Pulse Rate 74 01/15/19 10:11 Respiratory Rate 18 01/15/19 10:11 Blood Pressure 118/71 01/15/19 10:11 O2 Sat by Pulse Oximetry (%) PE: alert and oriented x 3 skin warm and dry +perrla eoms intact bl gi nd, nt ext full rom, amb ad [place], amb with cane pacing in shin, calm but irritable A/P: anxiety/restlessness will give one time dose of vistaril 50mg po once monitor clinically
[2019-01-15] MEDS: MIRTAZAPINE 15 MG TABLET (FP) PO SCH (21:50)
[2019-01-15] MEDS: THIAMINE HCL 100 MG TABLET (FP) PO SCH (21:51)
[2019-01-16] MEDS ORDERED: PT OWN MED DRAWER 7, Y5N ONE ×3 (08:38→21:27)
[2019-01-16] MEDS: BACITRACIN 15 GM TUBE TOPICAL OINTMENT TP SCH ×2 (09:56→21:26)
[2019-01-16] MEDS: BUDESONIDE/FORMETEROL FUMARATE 160/4.5 mcg INHALER IH SCH ×2 (09:56→21:27)
[2019-01-16] MEDS: FLUTICASONE PROP 0.05% 16 GM NASAL SPRAY NS SCH (09:56)
[2019-01-16] MEDS: amLODIPine BESYLATE 5 MG TABLET (FP) PO SCH (09:57)
[2019-01-16] MEDS: PRENATAL VITAMINS W/ FOLIC ACID TABLET (FP) PO SCH (09:57)
[2019-01-16] MEDS: NADOLOL 20 MG TABLET (FP) PO SCH (09:57)
[2019-01-16] MEDS: levETIRAcetam 500 MG TABLET (FP) PO SCH ×2 (09:57→21:25)
[2019-01-16] MEDS: MINERAL OIL/PETROLAT/WATER TOPICAL CREAM 454 GM JAR TP PRN (09:58)
[2019-01-16] MEDS: THIAMINE HCL 100 MG TABLET (FP) PO SCH (21:25)
[2019-01-16] MEDS: MIRTAZAPINE 15 MG TABLET (FP) PO SCH (21:25)
[2019-01-16] MEDS: MELATONIN 5 MG TABLETS PO PRN (21:27)
[2019-01-17 06:56] VITALS: TEMP 97.8
[2019-01-17] MEDS ORDERED: PT OWN MED DRAWER 7, Y5N ONE ×2 (08:29→21:21)
[2019-01-17] MEDS: BACITRACIN 15 GM TUBE TOPICAL OINTMENT TP SCH ×2 (09:34→21:21)
[2019-01-17] MEDS: amLODIPine BESYLATE 5 MG TABLET (FP) PO SCH (09:34)
[2019-01-17] MEDS: NADOLOL 20 MG TABLET (FP) PO SCH (09:34)
[2019-01-17] MEDS: levETIRAcetam 500 MG TABLET (FP) PO SCH ×2 (09:34→21:20)
[2019-01-17] MEDS: PRENATAL VITAMINS W/ FOLIC ACID TABLET (FP) PO SCH (09:34)
[2019-01-17] MEDS: FLUTICASONE PROP 0.05% 16 GM NASAL SPRAY NS SCH (09:34)
[2019-01-17] MEDS: MINERAL OIL/PETROLAT/WATER TOPICAL CREAM 454 GM JAR TP PRN (09:35)
[2019-01-17] MEDS: BUDESONIDE/FORMETEROL FUMARATE 160/4.5 mcg INHALER IH SCH ×2 (09:35→21:21)
[2019-01-17] MEDS: MELATONIN 5 MG TABLETS PO PRN (21:19)
[2019-01-17] MEDS: THIAMINE HCL 100 MG TABLET (FP) PO SCH (21:19)
[2019-01-17] MEDS: MIRTAZAPINE 15 MG TABLET (FP) PO SCH (21:20)
[2019-01-18 07:07] VITALS: BP 112/73; PULSE 52
[2019-01-18] MEDS ORDERED: levETIRAcetam 250 MG TABLET (FP) PO ONE (08:57)
[2019-01-18] MEDS: NADOLOL 20 MG TABLET (FP) PO SCH (09:41)
[2019-01-18] MEDS: amLODIPine BESYLATE 5 MG TABLET (FP) PO SCH (09:41)
[2019-01-18] MEDS: PRENATAL VITAMINS W/ FOLIC ACID TABLET (FP) PO SCH (09:41)
[2019-01-18] MEDS: levETIRAcetam 500 MG TABLET (FP) PO SCH (09:41)
[2019-01-18] MEDS: FLUTICASONE PROP 0.05% 16 GM NASAL SPRAY NS SCH (09:43)
[2019-01-18] MEDS ORDERED: PT OWN MED DRAWER 7, Y5N ONE (09:43)
[2019-01-18] MEDS: BUDESONIDE/FORMETEROL FUMARATE 160/4.5 mcg INHALER IH SCH (09:46)
[2019-01-18] MEDS: BACITRACIN 15 GM TUBE TOPICAL OINTMENT TP SCH (09:46)
--- NOTE | 2019-01-18 16:00 | DS ---
[facility] Rehab Discharge Summary - [facility] Rehab Discharge Summary Admission Date: 01/05/19 Discharge Date: 01/18/19 - History Present History: Alcohol dependence, Cannabis dependence, Cocaine dependence - Discharge Physical Exam Vital Signs: Vital Signs Temperature 97.8 F 01/18/19 07:03 Pulse Rate 52 L 01/18/19 07:03 Respiratory Rate 18 01/18/19 07:03 Blood Pressure 112/73 01/18/19 07:03 O2 Sat by Pulse Oximetry (%) Pertinent Admission Physical Exam Findings: ROS: patient denies etoh, cocaine cravings, sweating, anxiety, shakes and restlessness. PE: alert and oriented x 3 skin warm and dry +perrla, eoms intact bl car s1s2, rrr, no murmurs or ectopicies resp cta bl, no wheezes or rales ext full rom, no tremors - Treatment Discharge Condition: Discharge condition good Hospital Course: Patient attended groups, seen and evaluated by psychiatry and states he accomplished all rehab goals. [facility] Patient encouraged to continue with group meetings and to follow up with pcp as recommended. Patient d/c medically stable and denies SI/HI. Vital Signs Temperature 97.8 F 01/18/19 07:03 Pulse Rate 52 L 01/18/19 07:03 Respiratory Rate 18 01/18/19 07:03 Blood Pressure 112/73 01/18/19 07:03 O2 Sat by Pulse Oximetry (%) Ambulatory Orders Fluticasone Prop 0.05% Nasal [Flonase -] 2 puff IH DAILY 12/31/18 Omeprazole 20 mg PO DAILY 12/31/18 Amlodipine Besylate [Norvasc -] 5 mg PO DAILY #30 tablet 01/04/19 Budesonide/Formeterol Fumarate [SYMBICORT 160/4.5mcg -] 2 puff IH BID #1 inhaler 01/04/19 Nadolol [Corgard -] 20 mg PO DAILY #30 tablet 01/04/19 levETIRAcetam [Keppra -] 4 tab PO BID #60 tablet 01/04/19 - Medication Discharge Medications: Ambulatory Orders Fluticasone Prop 0.05% Nasal [Flonase -] 2 puff IH DAILY 12/31/18 Omeprazole 20 mg PO DAILY 12/31/18 Amlodipine Besylate [Norvasc -] 5 mg PO DAILY #30 tablet 01/04/19 Budesonide/Formeterol Fumarate [SYMBICORT 160/4.5mcg -] 2 puff IH BID #1 inhaler 01/04/19 Nadolol [Corgard -] 20 mg PO DAILY #30 tablet 01/04/19 levETIRAcetam [Keppra -] 4 tab PO BID #60 tablet 01/04/19 - Medication-Assisted Treatment (MAT) Medication-Assisted Treatment (MAT): No - Discharge Instructions Diet, activity, other medical instructions: Diet: as tolerated Activity: as tolerated Other medical instructions: follow up with pcp as recommended - Follow-up Referral Minutes to complete discharge: 30
== END 2019-01-18 10:12 | disposition home or self-care (01) | DRG 772 ==
LOC: YASAS 10:54 → Y3W 10:55
PROVIDERS: ADMIT Neuromusculoskeletal Medicine & OMM; ATTEND Neuromusculoskeletal Medicine & OMM
PROC: HZ42ZZZ Group Counseling for Substance Abuse Treatment, Cognitive-Behavioral (ICD-10-PCS; principal; 2019-01-05)
DX: F11.20 Opioid dependence, uncomplicated (principal); F10.20 Alcohol dependence, uncomplicated; F14.20 Cocaine dependence, uncomplicated; F12.20 Cannabis dependence, uncomplicated; F19.282 Other psychoactive substance dependence with psychoactive substance-induced sleep disorder; F19.24 Other psychoactive substance dependence with psychoactive substance-induced mood disorder; F43.10 Post-traumatic stress disorder, unspecified; I10 Essential (primary) hypertension; J45.909 Unspecified asthma, uncomplicated; Z99.89 Dependence on other enabling machines and devices; Z91.011 Allergy to milk products
CPT/HCPCS: Q2036

== ENCOUNTER 2019-12-01 12:12 | Inpatient (IN) | payer OTHER ==
--- NOTE | 2019-12-01 12:23 | BHS.RME ---
Substance Use & Tx History - Substance Use History Alcohol Substance amount: 1.5-2 pints vodka + 12 pack beers Frequency of use: Daily Substance route: Oral Date of Last Use: 12/01/19 Cocaine- Powder Substance amount: $100-350 Frequency of use: Daily Substance route: Injection (ex: intravenous or skin popping) Date of Last Use: 11/30/19 Marijuana/Hashish Substance amount: 2-3 blunts Frequency of use: Daily Substance route: Smoking Date of Last Use: 11/30/19 Nicotine Substance amount: former smoker stopped 6 years ago Physical/Psych/Mental Status - Behavior General Behavior: Increased activity (restlessness, agitation) Eye Contact: Normal - Cooperativeness Cooperativeness: Cooperative - Thinking Thought Processes: Tight, Logical, Goal Directed - Physical Health Problems Is patient presently having any pain?: No Does patient presently have any injuries (include location): No Does patient currently have a fever: No Is patient : No CIWA Nausea/Vomitin-Mild Nausea/No Vomiting Muscle Tremors: 5 Anxiety: 3 Agitation: 3 Paroxysmal Sweats: 2 Orientation: 0-Oriented Tacttile Disturbances: 0-None Auditory Disturbances: 0-None Visual Disturbances: 1-Very Mild Sensitivity Headache: 1-Very Mild CIWA-Ar Total Score: 16
--- NOTE | 2019-12-01 13:00 | HP ---
COWS - Scale Resting Pulse: 0= [place] 80 or Below CIWA Score Nausea/Vomitin-Mild Nausea/No Vomiting Muscle Tremors: 5 Anxiety: 3 Agitation: 3 Paroxysmal Sweats: 2 Orientation: 0-Oriented Tacttile Disturbances: 0-None Auditory Disturbances: 0-None Visual Disturbances: 1-Very Mild Sensitivity Headache: 1-Very Mild CIWA-Ar Total Score: 16 - Admission Criteria OASAS Guidelines: Admission for Medically Managed Detox: Requires at least one of the followin. CIWA greater than 12 2. Seizures within the past 24 hours 3. Delirium tremens within the past 24 hours 4. Hallucinations within the past 24 hours 5. Acute intervention needed for co occurring medical disorder 6. Acute intervention needed for co occurring psychiatric disorder 7. Severe withdrawal that cannot be handled at a lower level of care (continued vomiting, continued diarrhea, abnormal vital signs) requiring intravenous medication and/or fluids 8. Admitting History and Physical - Smoking History Smoking history: Current every day smoker Have you smoked in the past 12 months: Yes Aproximately how many cigarettes per day: 15 - Alcohol/Substance Use Hx Alcohol Use: Yes Admission ROS [facility] Chief Complaint: " I want to help to stop drinking." Allergies/Adverse Reactions: Allergies Allergy/AdvReac Type Severity Reaction Status Date / Time Milk Containing Products Allergy Intermediate Swelling Verified 01/05/19 11:03 History of Present Illness: 58 year old male with history of alcohol dependence with withdrawals, longest period of sobriety 6 years, last here in 12/31-01/12/19 completed detox but left rehab early and then relapsed thereafter. He stopped using heroin but alcohol is his main problem. Cocaine use disorder, cannabis use disorder. PMH: HTN, COPD, Asthma Psurg: Spinal Surgery 2009 secondary to osteomyelitis Psych: Depression and Anxiety Living in apartment with on SSI No legal issues pending. 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 Cocaine- Powder Substance amount: $100-350 Frequency of use: Daily Substance route: Injection (ex: intravenous or skin popping) Date of Last Use: 11/30/19 Marijuana/Hashish Substance amount: 2-3 blunts Frequency of use: Daily Substance route: Smoking Date of Last Use: 11/30/19 Nicotine Substance amount: former smoker stopped 6 years ago Patient meets detox criteria. KENZIE=0.009 CIWA=16 Urine TOx: ARNULFO, MOP, FEN, THC Exam Limitations: No Limitations - Ebola screening Have you traveled outside of the country in the last 21 days: No Have you had contact with anyone from an Ebola affected area: No Have you been sick,other than usual withdrawal symptoms: No Do you have a fever: No - Review of Systems Constitutional: Chills EENT: reports: No Symptoms Reported Respiratory: reports: No Symptoms reported Cardiac: reports: No Symptoms Reported GI: reports: No Symptoms Reported, Other Musculoskeletal: reports: No Symptoms Reported Integumentary: reports: No Symptoms Reported Neuro: reports: Headache, Tremors Endocrine: reports: No Symptoms Reported Hematology: reports: No Symptoms Reported Psychiatric: reports: Judgement Intact, Orientated x3, Agitated, Anxious Other Systems: Reviewed and Negative Patient History - Patient Medical History Hx Anemia: No Hx Asthma: Yes Hx Chronic Obstructive Pulmonary Disease (COPD): Yes Hx Cancer: No Hx Cardiac Disorders: No Hx Congestive Heart Failure: No Hx Hypertension: Yes (on) Hx Hypercholesterolemia: No Hx Pacemaker: No HX Cerebrovascular Accident: No Hx Seizures: Yes (last episode was 3 weeks) Hx Dementia: No Hx Diabetes: No Hx Gastrointestinal Disorders: No Hx Liver Disease: No Hx Genitourinary Disorders: No Hx Sexually Transmitted Disorders: No Hx Renal Disease (ESRD): No Hx Thyroid Disease: No Hx Human Immunodeficiency Virus (HIV): No Hx Hepatitis C: No Hx Depression: Yes Hx Suicide Attempt: No Hx Bipolar Disorder: No Hx Schizophrenia: Yes - Patient Surgical History Past Surgical History: Yes Hx Neurologic Surgery: No Hx Cataract Extraction: No Hx Cardiac Surgery: No Hx Lung Surgery: No Hx Breast Surgery: No Hx Breast Biopsy: No Hx Abdominal Surgery: No Hx Appendectomy: No Hx Cholecystectomy: No Hx Genitourinary Surgery: No Hx Section: No Hx Orthopedic Surgery: Yes (spine surgery to correct injury in 2008) - PPD History Previous Implant?: Yes Documented Results: Negative w/proof Implanted On Prior R Admission?: Yes Date: 01/02/19 Results: 0 mm PPD to be Administered?: No - Smoking Cessation Smoking history: Former smoker Have you smoked in the past 12 months: No Aproximately how many cigarettes per day: 15 Hx Chewing Tobacco Use: No Initiated information on smoking cessation: No - Substances abused Alcohol Substance route: Oral Frequency: Daily Amount used: 1.5-2 pints vodka+ 12 pack beers Age of first use: 25 Date of last use: 12/01/19 Cocaine Other (specify): $100-350 Substance route: Injection Frequency: Daily Amount used: $100-350 Age of first use: 28 Date of last use: 11/30/19 Marijuana/Hashish Substance route: Smoking Frequency: Daily Amount used: 2-3 blunts Age of first use: 26 Date of last use: 11/30/19 Admission Physical Exam [facility] - Physical General Appearance: Yes: Moderate Distress, Tremorous, Irritable, Sweating, Anx ious HEENTM: Yes: EOMI, Hearing grossly Normal, Normal ENT Inspection, Normocephalic, Normal Voice, DENIS, Pharynx Normal, Tm's normal Respiratory: Yes: Chest Non-Tender, Lungs Clear, Normal Breath Sounds, No Respiratory Distress, No Accessory Muscle Use Neck: Yes: No masses,lesions,Nodules, Supple, Trachea in good position Breast: Yes: Within Normal Limits Cardiology: Yes: Regular Rhythm, Regular Rate, S1, S2 Abdominal: Yes: Normal Bowel Sounds, Non Tender, Flat, Soft Genitourinary: Yes: Within Normal Limits Back: Yes: Normal Inspection Musculoskeletal: Yes: full range of Motion, Gait Steady, Pelvis Stable Extremities: Yes: Normal Capillary Refill, Normal Inspection, Normal Range of Motion, Non-Tender 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: Yes: grinder chipper II-XII NML intact, Fully Oriented, Alert, Motor Strength 5/5, Normal Mood/Affect, Normal Response Integumentary: Yes: Normal Color, Warm Lymphatic: Yes: Within Normal Limits - Diagnostic (1) Alcohol dependence with withdrawal Current Visit: Yes Status: Acute (2) Cannabis dependence, uncomplicated Current Visit: Yes Status: Acute (3) Cocaine dependence Current Visit: Yes Status: Acute Qualifiers: Substance use status: in withdrawal Qualified Code(s): F14.23 - Cocaine dependence with withdrawal (4) Substance induced mood disorder Current Visit: Yes Status: Acute (5) Substance-induced sleep disorder Current Visit: Yes Status: Acute (6) PTSD (post-traumatic stress disorder) Current Visit: Yes Status: Chronic (7) Depression Current Visit: Yes Status: Acute (8) Anxiety Current Visit: Yes Status: Acute Cleared for Admission S - Detox or Rehab [facility] Level of Care: Medically Managed Detox Regimen/Protocol: Librium Claeared for Rehab Admission: No Screened but not Admitted - Documentation of Visit Screened but not Admitted: No Breathalyzer - Breathalyzer Breathalyzer: 0.009 Vital Signs - Vital Signs Vital signs refused: No Temperature: 98.5 F Pulse Rate: 63 Respiratory Rate: 18 Blood Pressure: 121/75 BP Location: Left Arm Blood Pressure position: Sitting - Height Height: 5 ft 10 in - Weight Weight: 144 lb Weight measurement method: Standing scale - BMI Body Mass Index (BMI): 20.6 - Bowel Function Bowel Movement: No Urine Drug Screen - Test Device Lot number: [id number] Expiration date: 08/28/20 - Control Is test valid?: Yes - Results Drug screen NEGATIVE: No Urine drug screen results: THC-Marijuana, ARNULFO-Cocaine, FEN-Fentanyl, MOP-Opiates Inpatient Rehab Admission - Rehab Decision to Admit Inpatient rehab admission?: No
[2019-12-01] MEDS ORDERED: chlordiazePOXIDE HCL 25 MG CAPSULE PO PRN (13:09)
[2019-12-01] MEDS ORDERED: MENTHOL/PHENOL 1 EACH UD MM PRN (13:09)
[2019-12-01] MEDS ORDERED: MAG HYDROX/AL HYDROX/SIMETH 30 ML UNIT-DOSE CUP PO PRN (13:09)
[2019-12-01] MEDS ORDERED: IBUPROFEN 400 MG TABLET (FP) PO PRN (13:09)
[2019-12-01] MEDS ORDERED: MAGNESIUM HYDROX 2400MG/30ML ORAL SUSPENSION 30 ML CUP PO PRN (13:09)
[2019-12-01] MEDS ORDERED: ACETAMINOPHEN 325 MG TABLET (FP) PO PRN ×2 (13:09)
[2019-12-01] MEDS ORDERED: BISMUTH SUBSALICYLATE 524 MG/30 ML UD PO PRN (13:09)
[2019-12-01] MEDS ORDERED: METHOCARBAMOL 500 MG TABLET PO PRN (13:09)
[2019-12-01] MEDS ORDERED: MAGNESIUM CITRATE 300 ML BOTTLE PO PRN (13:09)
[2019-12-01 13:10] VITALS: BMI 20.6
[2019-12-01] MEDS ORDERED: ONDANSETRON *ODT* 4 MG TABLET SL ONE (14:15)
[2019-12-01] MEDS: PRENATAL VITAMINS W/ FOLIC ACID TABLET (FP) PO SCH (14:23)
[2019-12-01] MEDS: chlordiazePOXIDE HCL 25 MG CAPSULE PO SCH ×3 (14:23→23:10)
[2019-12-01] MEDS: hydrOXYzine PAMOATE 25 MG CAPSULE (FP) PO SCH ×3 (14:23→23:09)
[2019-12-01 15:30] LABS: HEMATOCRIT 40.7 % (35.4-49); HEMOGLOBIN 13.6 GM/dL (11.7-16.9); MCH 34.2 pg (25.7-33.7); MCHC 33.4 g/dl (32.0-35.9); MEAN CELL VOLUME 102.2 fl (80-96); MEAN PLT VOLUME 9.5 fl (7.5-11.1); PLATELET COUNT 135 K/MM3 (134-434); RBC 3.98 M/mm3 (4.00-5.60); RDW 12.7 % (11.9-15.9); WHITE BLOOD COUNT 5.5 K/mm3 (4.0-10.0)
[2019-12-01 15:38] LABS: CREATININE 1.3 mg/dL (0.55-1.3)
[2019-12-01 15:39] LABS: BLOOD UREA NITROGEN 15.2 mg/dL (7-18); POTASSIUM 3.9 mmol/L (3.5-5.1); TOT PROT 7.9 g/dl (6.4-8.2)
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
[2019-12-01] MEDS: THIAMINE HCL 100 MG TABLET (FP) PO SCH (23:09)
[2019-12-01] MEDS: MELATONIN 5 MG TABLETS PO SCH (23:09)
[2019-12-02] MEDS: chlordiazePOXIDE HCL 25 MG CAPSULE PO SCH ×4 (05:33→22:43)
[2019-12-02] MEDS: hydrOXYzine PAMOATE 25 MG CAPSULE (FP) PO SCH ×5 (05:34→22:44)
[2019-12-02] MEDS: PRENATAL VITAMINS W/ FOLIC ACID TABLET (FP) PO SCH (10:04)
[2019-12-02] MEDS: levETIRAcetam 500 MG TABLET (FP) PO SCH ×2 (14:17→22:42)
--- NOTE | 2019-12-02 15:18 | PN ---
S CIWA - CIWA Score Nausea/Vomitin Muscle Tremors: 3 Anxiety: 3 Agitation: 2 Paroxysmal Sweats: No Perspiration Orientation: 0-Oriented Tacttile Disturbances: 1-Very Mild Itch/Numbness Auditory Disturbances: 0-None Visual Disturbances: 0-None Headache: 1-Very Mild CIWA-Ar Total Score: 12 [facility]HS Progress Note (SOAP) Subjective: alert,irritable,anxious,tremor,aching pain,patient request medication for seizure Objective: 12/02/19 15:15 Vital Signs Temperature 97.6 F 12/02/19 12:33 Pulse Rate 91 H 12/02/19 12:33 Respiratory Rate 18 12/02/19 12:33 Blood Pressure 115/78 12/02/19 12:33 O2 Sat by Pulse Oximetry (%) 100 12/02/19 12:33 12/02/19 15:15 Laboratory Last Values WBC 5.5 K/mm3 (4.0-10.0) 12/01/19 13:15 RBC 3.98 M/mm3 (4.00-5.60) L 12/01/19 13:15 Hgb 13.6 GM/dL (11.7-16.9) 12/01/19 13:15 Hct 40.7 % (35.4-49) 12/01/19 13:15 MCV 102.2 fl (80-96) H 12/01/19 13:15 MCH 34.2 pg (25.7-33.7) H 12/01/19 13:15 MCHC 33.4 g/dl (32.0-35.9) 12/01/19 13:15 RDW 12.7 % (11.9-15.9) 12/01/19 13:15 Plt Count 135 K/MM3 (134-434) 12/01/19 13:15 MPV 9.5 fl (7.5-11.1) 12/01/19 13:15 Sodium 141 mmol/L (136-145) 12/01/19 13:15 Potassium 3.9 mmol/L (3.5-5.1) 12/01/19 13:15 Chloride 106 mmol/L (98-107) 12/01/19 13:15 Carbon Dioxide 25 mmol/L (21-32) 12/01/19 13:15 Anion Gap 9 MMOL/L (8-16) 12/01/19 13:15 BUN 15.2 mg/dL (7-18) 12/01/19 13:15 Creatinine 1.3 mg/dL (0.55-1.3) 12/01/19 13:15 Est GFR (CKD-EPI)AfAm 70.20 12/01/19 13:15 Est GFR (CKD-EPI)NonAf 60.57 12/01/19 13:15 Random Glucose 114 mg/dL (74-106) H 12/01/19 13:15 Calcium 9.0 mg/dL (8.5-10.1) 12/01/19 13:15 Total Bilirubin 1.0 mg/dL (0.2-1) 12/01/19 13:15 AST 35 U/L (15-37) 12/01/19 13:15 ALT 21 U/L (13-61) 12/01/19 13:15 Alkaline Phosphatase 131 U/L (45-117) H 12/01/19 13:15 Total Protein 7.9 g/dl (6.4-8.2) 12/01/19 13:15 Albumin 4.0 g/dl (3.4-5.0) 12/01/19 13:15 Syphilis Serology Non-reactive (NONREACTIVE) 12/01/19 13:15 COVID-19 (GERALD) Not detected (Not Detected) 12/01/19 14:00 HIV Ag/Ab Combo Qual Negative (NEGATIVE) 12/02/19 08:10 Assessment: 12/02/19 15:15 withdrawal symptom Plan: continue detox librium regimen,verification with patient's pharmacist on keppra 1500 mgs po bid,orderd,seizure precaution,keppra 1500 mgs po bid, hydration,seizure precaution
[2019-12-02] MEDS: MELATONIN 5 MG TABLETS PO SCH (22:44)
[2019-12-02] MEDS: THIAMINE HCL 100 MG TABLET (FP) PO SCH (22:44)
[2019-12-03] MEDS: hydrOXYzine PAMOATE 25 MG CAPSULE (FP) PO SCH ×5 (06:45→22:59)
[2019-12-03] MEDS: chlordiazePOXIDE HCL 25 MG CAPSULE PO SCH ×4 (06:45→22:59)
--- NOTE | 2019-12-03 09:36 | PN ---
[facility] CIWA - CIWA Score Nausea/Vomitin-Mild Nausea/No Vomiting Muscle Tremors: None Anxiety: 0-No Anxiety, at Ease Agitation: 0-Normal Activity Paroxysmal Sweats: 1-Minimal Palms Moist Orientation: 0-Oriented Tacttile Disturbances: 0-None Auditory Disturbances: 0-None Visual Disturbances: 0-None Headache: 0-None Present CIWA-Ar Total Score: 2 S Progress Note (SOAP) Subjective: Patient examined in the room in no acute distress. Patient complains of L elbow pain due to a fall prior to admission. Patient stated he had difficult moving his pinky. Patient has no further complaints. Objective: 12/03/19 09:35 General: Patient alert and in no acute distress, WNWD Mental status: Patient judgment intact, patient stated he feels depressed MSK/Neuro: Patient MS 5/5, L hand weakness in digist 4 and 5, sensation decreased in digit 5 Gait: Patient ambulates properly, gait steady Assessment: 12/03/19 09:36 1. Patient here for alcohol detox. 2. Patient depression will f/u with psych 3. L elbow pain from fall Last Vital Signs Temp Pulse Resp BP Pulse Ox 97.5 F L 72 18 101/68 99 12/03/19 09:00 12/03/19 09:00 12/03/19 09:00 12/03/19 09:00 12/03/19 09:00 CBC,CMP WBC 5.5 K/mm3 (4.0-10.0) 12/01/19 13:15 RBC 3.98 M/mm3 (4.00-5.60) L 12/01/19 13:15 Hgb 13.6 GM/dL (11.7-16.9) 12/01/19 13:15 Hct 40.7 % (35.4-49) 12/01/19 13:15 MCV 102.2 fl (80-96) H 12/01/19 13:15 MCH 34.2 pg (25.7-33.7) H 12/01/19 13:15 MCHC 33.4 g/dl (32.0-35.9) 12/01/19 13:15 RDW 12.7 % (11.9-15.9) 12/01/19 13:15 Plt Count 135 K/MM3 (134-434) 12/01/19 13:15 MPV 9.5 fl (7.5-11.1) 12/01/19 13:15 Sodium 141 mmol/L (136-145) 12/01/19 13:15 Potassium 3.9 mmol/L (3.5-5.1) 12/01/19 13:15 Chloride 106 mmol/L (98-107) 12/01/19 13:15 Carbon Dioxide 25 mmol/L (21-32) 12/01/19 13:15 Anion Gap 9 MMOL/L (8-16) 12/01/19 13:15 BUN 15.2 mg/dL (7-18) 12/01/19 13:15 Creatinine 1.3 mg/dL (0.55-1.3) 12/01/19 13:15 Est GFR (CKD-EPI)AfAm 70.20 12/01/19 13:15 Est GFR (CKD-EPI)NonAf 60.57 12/01/19 13:15 Random Glucose 114 mg/dL (74-106) H 12/01/19 13:15 Calcium 9.0 mg/dL (8.5-10.1) 12/01/19 13:15 Total Bilirubin 1.0 mg/dL (0.2-1) 12/01/19 13:15 AST 35 U/L (15-37) 12/01/19 13:15 ALT 21 U/L (13-61) 12/01/19 13:15 Alkaline Phosphatase 131 U/L (45-117) H 12/01/19 13:15 Total Protein 7.9 g/dl (6.4-8.2) 12/01/19 13:15 Albumin 4.0 g/dl (3.4-5.0) 12/01/19 13:15 Current Medications Generic Name Dose Route Start Last Admin Trade Name Freq PRN Reason Stop Dose Admin Acetaminophen 650 mg 12/01/19 13:09 Tylenol - PO Q6H PRN PAIN LEVEL 4 - 6 Acetaminophen 650 mg 12/01/19 13:09 Tylenol - PO Q6H PRN FEVER Al Hydroxide/Mg Hydroxide 30 ml 12/01/19 13:09 Mylanta Oral Suspension - PO Q6H PRN DYSPEPSIA Bismuth Subsalicylate 524 mg 12/01/19 13:09 Pepto-Bismol - PO Q1H PRN DIARRHEA Chlordiazepoxide HCl 25 mg 12/03/19 05:00 12/03/19 06:45 Librium - PO 12/03/19 23:01 25 mg [id number] MICHAELA Administration Chlordiazepoxide HCl 25 mg 12/01/19 13:09 Librium - PO 12/03/19 23:59 Q4H PRN WITHDRAWAL(CONT SUBST) Chlordiazepoxide HCl 10 mg 12/04/19 05:00 Librium - PO 12/04/19 23:01 [id number] MICHAELA Chlordiazepoxide HCl 10 mg 12/05/19 05:00 Librium - PO 12/05/19 17:01 Q12H MICHAELA Chlordiazepoxide HCl 10 mg 12/04/19 00:00 Librium - PO 12/05/19 00:00 Q4H PRN WITHDRAWAL(CONT SUBST) Chlordiazepoxide HCl 10 mg 12/06/19 05:00 Librium - PO 12/06/19 05:01 ONCE@0500 ONE Eucalyptus/Menthol/Phenol/Sorbitol 1 each 12/01/19 13:09 Cepastat Lozenge - MM 12/07/19 13:09 Q4H PRN SORE THROAT Hydroxyzine Pamoate 25 mg 12/01/19 14:00 12/03/19 06:45 Vistaril - PO 12/07/19 13:09 25 mg Q4HWA MICHAELA Administration Ibuprofen 400 mg 12/01/19 13:09 12/01/19 17:39 Motrin - PO 400 mg Q6H PRN Administration PAIN LEVEL 1 - 3 Levetiracetam 1,500 mg 12/02/19 14:15 12/02/19 22:42 Keppra - PO 1,500 mg BID MICHAELA Administration Magnesium Citrate 300 ml 12/01/19 13:09 Citroma - PO Q48H PRN CONSTIPATION Magnesium Hydroxide 30 ml 12/01/19 13:09 Milk Of Magnesia - PO PRN PRN CONSTIPATION Melatonin 5 mg 12/01/19 22:00 12/02/19 22:44 Melatonin PO 5 mg HS MICHAELA Administration Methocarbamol 500 mg 12/01/19 13:09 Robaxin - PO 12/07/19 13:09 Q6H PRN MUSCLE SPASMS Multivit/Folic Acid/Iron 1 tab 12/01/19 13:15 12/02/19 10:04 Vitamins (Sjr) - PO 1 tab DAILY MICHAELA Administration Thiamine HCl 100 mg 12/01/19 22:00 12/02/19 22:44 Vitamin B1 - PO 100 mg HS MICHAELA Administration Discontinued Medications Generic Name Dose Route Start Last Admin Trade Name Stephenq PRN Reason Stop Dose Admin Chlordiazepoxide HCl 50 mg 12/01/19 14:15 12/02/19 22:43 Librium - PO 12/02/19 23:01 50 mg [id number] MICHAELA Administration Ondansetron HCl 4 mg 12/01/19 14:15 12/01/19 14:25 Zofran Odt - SL 12/01/19 14:16 Not Given ONCE ONE 12/03/19 09:38 12/03/19 09:42 Plan: 1. Patient continue on librium protocol 2. Psych consult placed for patient sdepression 3. X-ray order due to L elbow pain
[2019-12-03] MEDS: PRENATAL VITAMINS W/ FOLIC ACID TABLET (FP) PO SCH (10:46)
[2019-12-03] MEDS: levETIRAcetam 500 MG TABLET (FP) PO SCH ×2 (10:46→22:59)
--- NOTE | 2019-12-03 10:48 | PN ---
[facility] Progress Note Note: Pt ambulated to nurses station for meds Noted by staff to become stiff and began to collapse. Held up/guided to floor by RN Nata Onofre Pt had several tonic clonic jerks of abdomen with brief alteration in mental status lasting one minute. He was then responsive to name and had one more jerk of the abdomen. Pt was placed on his left side when he was guided to the floor. Vital signs were taken, afebrile, oxygen sat 99-100%, HR 60-65, BP normal Pt able to rise from floor with assistance. Pt placed in chair and taken to his room. Pt able to transfer from chair to bed. Pt states seizure disorder since age 13y has about 6 seizures per year Aura of feeling happy precedes onset of generalized seizure. Pt states he had that feeling today prior to seizure. In past he has had urinary incontinence and tongue biting. No tongue bite or incontinence today. Tx at [facility] by Dr. Radha Chandra Takes Vimpat and Keppra. Admits to med noncompliance for 2 days prior to admission. Imp 1. Partial seizure with secondary generalization 2. Nonfocal exam Plan 1. Continue Keppra and Vimpat. 2. Monitor in room with vitals q30 x 2
[2019-12-03] MEDS: LACOSAMIDE 50 MG TABLET PO SCH ×2 (12:08→22:59)
[2019-12-03] MEDS: THIAMINE HCL 100 MG TABLET (FP) PO SCH (22:59)
[2019-12-03] MEDS: MELATONIN 5 MG TABLETS PO SCH (22:59)
[2019-12-04] MEDS ORDERED: chlordiazePOXIDE HCL 10 MG CAPSULE PO PRN
[2019-12-04] MEDS: hydrOXYzine PAMOATE 25 MG CAPSULE (FP) PO SCH ×5 (06:06→22:31)
[2019-12-04] MEDS: chlordiazePOXIDE HCL 10 MG CAPSULE PO SCH ×4 (06:06→22:31)
[2019-12-04] MEDS: levETIRAcetam 500 MG TABLET (FP) PO SCH ×2 (10:17→22:30)
[2019-12-04] MEDS: LACOSAMIDE 50 MG TABLET PO SCH ×2 (10:18→22:31)
[2019-12-04] MEDS: PRENATAL VITAMINS W/ FOLIC ACID TABLET (FP) PO SCH (10:18)
--- NOTE | 2019-12-04 10:47 | PN ---
S CIWA - CIWA Score Nausea/Vomitin-No Nausea/No Vomiting Muscle Tremors: 2 Anxiety: 2 Agitation: 0-Normal Activity Paroxysmal Sweats: 2 Orientation: 0-Oriented Tacttile Disturbances: 0-None Auditory Disturbances: 0-None Visual Disturbances: 0-None Headache: 0-None Present CIWA-Ar Total Score: 6 [facility] Progress Note (SOAP) Subjective: c/o anxiety, sweats, and mild shakes. Objective: 12/04/19 10:46 Vital Signs 12/04/19 12/04/19 06:32 09:36 Temperature 97.2 F L 97.3 F L Pulse Rate 87 89 Respiratory 18 16 Rate Blood Pressure 102/64 122/84 O2 Sat by Pulse 100 100 Oximetry (%) Laboratory Last Values WBC 5.5 K/mm3 (4.0-10.0) 12/01/19 13:15 RBC 3.98 M/mm3 (4.00-5.60) L 12/01/19 13:15 Hgb 13.6 GM/dL (11.7-16.9) 12/01/19 13:15 Hct 40.7 % (35.4-49) 12/01/19 13:15 MCV 102.2 fl (80-96) H 12/01/19 13:15 MCH 34.2 pg (25.7-33.7) H 12/01/19 13:15 MCHC 33.4 g/dl (32.0-35.9) 12/01/19 13:15 RDW 12.7 % (11.9-15.9) 12/01/19 13:15 Plt Count 135 K/MM3 (134-434) 12/01/19 13:15 MPV 9.5 fl (7.5-11.1) 12/01/19 13:15 Sodium 141 mmol/L (136-145) 12/01/19 13:15 Potassium 3.9 mmol/L (3.5-5.1) 12/01/19 13:15 Chloride 106 mmol/L (98-107) 12/01/19 13:15 Carbon Dioxide 25 mmol/L (21-32) 12/01/19 13:15 Anion Gap 9 MMOL/L (8-16) 12/01/19 13:15 BUN 15.2 mg/dL (7-18) 12/01/19 13:15 Creatinine 1.3 mg/dL (0.55-1.3) 12/01/19 13:15 Est GFR (CKD-EPI)AfAm 70.20 12/01/19 13:15 Est GFR (CKD-EPI)NonAf 60.57 12/01/19 13:15 Random Glucose 114 mg/dL (74-106) H 12/01/19 13:15 Calcium 9.0 mg/dL (8.5-10.1) 12/01/19 13:15 Total Bilirubin 1.0 mg/dL (0.2-1) 12/01/19 13:15 AST 35 U/L (15-37) 12/01/19 13:15 ALT 21 U/L (13-61) 12/01/19 13:15 Alkaline Phosphatase 131 U/L (45-117) H 12/01/19 13:15 Total Protein 7.9 g/dl (6.4-8.2) 12/01/19 13:15 Albumin 4.0 g/dl (3.4-5.0) 12/01/19 13:15 Levetiracetam 1.3 MCG/ML (10.0-40.0) L 12/02/19 12:00 Syphilis Serology Non-reactive (NONREACTIVE) 12/01/19 13:15 COVID-19 (GERALD) Not detected (Not Detected) 12/01/19 14:00 HIV Ag/Ab Combo Qual Negative (NEGATIVE) 12/02/19 08:10 Labs noted. Assessment: 12/04/19 10:46 AOX3, in no acute respiratory distress. Full ROM, ambulating in the unit. Withdrawal symptoms. Plan: continue detox.
[2019-12-04] MEDS ORDERED: MASKS NR ONE (18:33)
[2019-12-04] MEDS: THIAMINE HCL 100 MG TABLET (FP) PO SCH (22:31)
[2019-12-04] MEDS: MELATONIN 5 MG TABLETS PO SCH (22:31)
[2019-12-05] MEDS: hydrOXYzine PAMOATE 25 MG CAPSULE (FP) PO SCH ×5 (06:02→22:15)
[2019-12-05] MEDS: chlordiazePOXIDE HCL 10 MG CAPSULE PO SCH ×2 (06:02→17:29)
[2019-12-05] MEDS: levETIRAcetam 500 MG TABLET (FP) PO SCH ×2 (10:09→22:14)
[2019-12-05] MEDS: PRENATAL VITAMINS W/ FOLIC ACID TABLET (FP) PO SCH (10:09)
[2019-12-05] MEDS: LACOSAMIDE 50 MG TABLET PO SCH ×2 (10:10→22:15)
--- NOTE | 2019-12-05 12:08 | PN ---
S CIWA - CIWA Score Nausea/Vomitin-No Nausea/No Vomiting Muscle Tremors: 1-None Visible, but [place] Anxiety: 0-No Anxiety, at Ease Agitation: 0-Normal Activity Paroxysmal Sweats: No Perspiration Orientation: 0-Oriented Tacttile Disturbances: 0-None Auditory Disturbances: 0-None Visual Disturbances: 1-Very Mild Sensitivity Headache: 1-Very Mild CIWA-Ar Total Score: 3 B[facility] Progress Note (SOAP) Subjective: 58 years old male was admitted on 12/01/19 for alcohol withdrawal sx management treating with librium detox regiment feels better today requests ensure as nutritional supplement discontinue isolation precaution mr noguera prefers community support AA for his alcohol abuse treatment long history of seizure treated with vimpat and keppra mr noguera prefers returning to his neurologist for aftercare Objective: 12/05/19 12:11 Vital Signs - 24 hr 12/04/19 12/04/19 12/04/19 13:06 16:25 20:41 Temperature 96.9 F L 98.6 F 97.8 F Pulse Rate 93 H 86 73 Respiratory 18 18 16 Rate Blood Pressure 120/81 134/95 115/78 O2 Sat by Pulse 100 100 100 Oximetry (%) 12/05/19 12/05/19 06:21 08:40 Temperature 97.1 F L 96.4 F L Pulse Rate 75 69 Respiratory 18 18 Rate Blood Pressure 113/69 126/73 O2 Sat by Pulse 99 99 Oximetry (%) Laboratory Tests 12/01/19 12/01/19 12/01/19 13:15 13:15 13:15 WBC 5.5 RBC 3.98 L Hgb 13.6 Hct 40.7 MCV 102.2 H MCH 34.2 H MCHC 33.4 RDW 12.7 Plt Count 135 MPV 9.5 Sodium 141 Potassium 3.9 Chloride 106 Carbon Dioxide 25 Anion Gap 9 BUN 15.2 Creatinine 1.3 Est GFR (CKD-EPI)AfAm 70.20 Est GFR (CKD-EPI)NonAf 60.57 Random Glucose 114 H Calcium 9.0 Total Bilirubin 1.0 AST 35 ALT 21 Alkaline Phosphatase 131 H Total Protein 7.9 Albumin 4.0 Levetiracetam Syphilis Serology Non-reactive COVID-19 (GERALD) HIV Ag/Ab Combo Qual 12/01/19 12/02/19 12/02/19 14:00 08:10 12:00 WBC RBC Hgb Hct MCV MCH MCHC RDW Plt Count MPV Sodium Potassium Chloride Carbon Dioxide Anion Gap BUN Creatinine Est GFR (CKD-EPI)AfAm Est GFR (CKD-EPI)NonAf Random Glucose Calcium Total Bilirubin AST ALT Alkaline Phosphatase Total Protein Albumin Levetiracetam 1.3 L Syphilis Serology COVID-19 (GERALD) Not detected HIV Ag/Ab Combo Qual Negative lab noted Assessment: 12/05/19 12:12 alcohol withdrawal Plan: librium regiment
[2019-12-05] MEDS: MELATONIN 5 MG TABLETS PO SCH (22:14)
[2019-12-05] MEDS: THIAMINE HCL 100 MG TABLET (FP) PO SCH (22:15)
[2019-12-06] MEDS ORDERED: chlordiazePOXIDE HCL 10 MG CAPSULE PO ONE (05:00)
[2019-12-06] MEDS: hydrOXYzine PAMOATE 25 MG CAPSULE (FP) PO SCH ×2 (06:04→09:39)
[2019-12-06] MEDS: levETIRAcetam 500 MG TABLET (FP) PO SCH (09:38)
[2019-12-06] MEDS: PRENATAL VITAMINS W/ FOLIC ACID TABLET (FP) PO SCH (09:38)
[2019-12-06] MEDS: LACOSAMIDE 50 MG TABLET PO SCH (09:38)
[2019-12-06 09:56] VITALS: BP 123/81; PULSE 70; TEMP 97.1
--- NOTE | 2019-12-06 10:40 | DS ---
[facility] Detox Discharge Summary Admission Date: 12/01/19 Discharge Date: 12/06/19 - History Present History: Alcohol Dependence Additional Comments: 58 years old male was admitted on 12/01/19 for alcohol withdrawal sx management treated with librum detox regiment seen by psychiatrist no medical intervention mr noguera has completed the librium regiment and is tolerated well General Appearance: Yes: no Distress, mild Tremorous, not Irritable, no Sweating, mild Anxious HEENTM: Yes: EOMI, Hearing grossly Normal, Normal ENT Inspection, Normocephalic, Normal Voice, DENIS, Pharynx Normal, Tm's normal Respiratory: Yes: Chest Non-Tender, Lungs Clear, Normal Breath Sounds, No Respiratory Distress, No Accessory Muscle Use Neck: Yes: No masses,lesions,Nodules, Supple, Trachea in good position Breast: Yes: Within Normal Limits Cardiology: Yes: Regular Rhythm, Regular Rate, S1, S2 Abdominal: Yes: Normal Bowel Sounds, Non Tender, Flat, Soft Genitourinary: Yes: Within Normal Limits Back: Yes: Normal Inspection Musculoskeletal: Yes: full range of Motion, Gait Steady, Pelvis Stable Extremities: Yes: Normal Capillary Refill, Normal Inspection, Normal Range of Motion, Non-Tender 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: Yes: custodial operations manager II-XII NML intact, Fully Oriented, Alert, Motor Strength 5/5, Normal Mood/Affect, Normal Response Integumentary: Yes: Normal Color, Warm Lymphatic: Yes: Within Normal Limits Pertinent Past History: time for discharge 46 minutes transferred order set from detox to rehab - Physical Exam Results Vital Signs: Vital Signs Temperature 97.1 F L 12/06/19 08:50 Pulse Rate 70 12/06/19 08:50 Respiratory Rate 18 12/06/19 08:50 Blood Pressure 123/81 12/06/19 08:50 O2 Sat by Pulse Oximetry (%) 100 12/06/19 06:51 Pertinent Admission Physical Exam Findings: alcohol withdrawal Vital Signs - 24 hr 12/05/19 12/05/19 12/05/19 13:20 13:31 16:36 Temperature 96.8 F L 97.3 F L 97.5 F L Pulse Rate 85 61 86 Respiratory 18 18 18 Rate Blood Pressure 144/85 122/69 117/69 O2 Sat by Pulse 99 99 Oximetry (%) 12/05/19 12/06/19 12/06/19 20:25 06:51 08:50 Temperature 97.3 F L 97.0 F L 97.1 F L Pulse Rate 82 55 L 70 Respiratory 18 16 18 Rate Blood Pressure 109/78 102/74 123/81 O2 Sat by Pulse 98 100 Oximetry (%) Laboratory Tests 12/01/19 12/01/19 12/01/19 13:15 13:15 13:15 WBC 5.5 RBC 3.98 L Hgb 13.6 Hct 40.7 MCV 102.2 H MCH 34.2 H MCHC 33.4 RDW 12.7 Plt Count 135 MPV 9.5 Sodium 141 Potassium 3.9 Chloride 106 Carbon Dioxide 25 Anion Gap 9 BUN 15.2 Creatinine 1.3 Est GFR (CKD-EPI)AfAm 70.20 Est GFR (CKD-EPI)NonAf 60.57 Random Glucose 114 H Calcium 9.0 Total Bilirubin 1.0 AST 35 ALT 21 Alkaline Phosphatase 131 H Total Protein 7.9 Albumin 4.0 Levetiracetam Syphilis Serology Non-reactive COVID-19 (GERALD) HIV Ag/Ab Combo Qual 12/01/19 12/02/19 12/02/19 14:00 08:10 12:00 WBC RBC Hgb Hct MCV MCH MCHC RDW Plt Count MPV Sodium Potassium Chloride Carbon Dioxide Anion Gap BUN Creatinine Est GFR (CKD-EPI)AfAm Est GFR (CKD-EPI)NonAf Random Glucose Calcium Total Bilirubin AST ALT Alkaline Phosphatase Total Protein Albumin Levetiracetam 1.3 L Syphilis Serology COVID-19 (GERALD) Not detected HIV Ag/Ab Combo Qual Negative lab noted - Treatment Hospital Course: Detox Protocol Followed, Detoxed Safely, Responded well, Discharged Condition Good, Rehab Referral Accepted Patient has Accepted a [facility] Referral to: [facility] - Medication Discharge Medications: Ambulatory Orders Amlodipine Besylate [Norvasc -] 5 mg PO DAILY #30 tablet 01/04/19 Budesonide/Formeterol Fumarate [SYMBICORT 160/4.5mcg -] 2 puff IH BID #1 inhaler 01/04/19 Nadolol [Corgard -] 20 mg PO DAILY #30 tablet 01/04/19 Fluticasone Prop 0.05% Nasal [Flonase -] 1 - 2 spray NS DAILY 12/02/19 Gabapentin [Neurontin -] 800 mg PO PRN 12/02/19 Ketotifen Fumarate [Itchy Eye] 1 drop OP BID 12/02/19 Lacosamide [Vimpat -] 50 mg PO BID 12/02/19 Omeprazole 20 mg PO DAILY 12/02/19 levETIRAcetam [Keppra -] 3 tab PO BID 12/02/19 - Diagnosis (1) Seizure disorder Current Visit: Yes Status: Chronic (2) Alcohol dependence with withdrawal Current Visit: Yes Status: Acute Qualifiers: Complication of substance-induced condition: uncomplicated Qualified Code(s): F10.230 - Alcohol dependence with withdrawal, uncomplicated (3) Substance induced mood disorder Current Visit: Yes Status: Suspected - AMA Did Patient Leave Against Medical Advice: No CIWA Score - CIWA Score Nausea/Vomitin-No Nausea/No Vomiting Muscle Tremors: 1-None Visible, but [place] Anxiety: 0-No Anxiety, at Ease Agitation: 0-Normal Activity Paroxysmal Sweats: No Perspiration Orientation: 0-Oriented Tacttile Disturbances: 0-None Auditory Disturbances: 0-None Visual Disturbances: 0-None Headache: 0-None Present CIWA-Ar Total Score: 1
== END 2019-12-06 11:20 | disposition other institution (70) | DRG 774 ==
LOC: YASAS 12:12 → Y3N 13:22
PROVIDERS: ADMIT Allergy & Immunology; ATTEND Allergy & Immunology
PROC: HZ2ZZZZ Detoxification Services for Substance Abuse Treatment (ICD-10-PCS; principal; 2019-12-01)
DX: F10.230 Alcohol dependence with withdrawal, uncomplicated (principal); F14.20 Cocaine dependence, uncomplicated; F12.20 Cannabis dependence, uncomplicated; F17.211 Nicotine dependence, cigarettes, in remission; F19.24 Other psychoactive substance dependence with psychoactive substance-induced mood disorder; F19.282 Other psychoactive substance dependence with psychoactive substance-induced sleep disorder; F32.9 Major depressive disorder, single episode, unspecified; F41.9 Anxiety disorder, unspecified; F43.10 Post-traumatic stress disorder, unspecified; G40.909 Epilepsy, unspecified, not intractable, without status epilepticus; I10 Essential (primary) hypertension; J44.9 Chronic obstructive pulmonary disease, unspecified; J45.998 Other asthma; Z62.810 Personal history of physical and sexual abuse in childhood; Z91.19 Patient's noncompliance with other medical treatment and regimen; Z91.011 Allergy to milk products
CPT/HCPCS: 36415; 71046-TC-FY; 73070-TC-LT-FY; 80053; 80177; 85027; 86780; 87389; U0003

== ENCOUNTER 2019-12-06 11:16 | Inpatient (IN) | payer OTHER ==
--- NOTE | 2019-12-06 10:42 | HP ---
[facility] Re[facility] Assess/Revision - Admission History Admitted to Rehab from: [facility] Date of Admission to Rehab: 12/06/19 - Findings Detox History & Physical reviewed: Yes Concur with findings: Yes Comments/Additional Findings: transferred from detox to rehab admission as per protocol Inpatient Rehab Admission - Rehab Decision to Admit Inpatient rehab admission?: Yes - Initial Determination Are CD services needed?: Yes Free of communicable disease: Yes Not in need of hospitalization: Yes - Rehab Admission Criteria Previous failed treatment: Yes Poor recovery environment: Yes Comorbidities: Yes Lacks judgement: Yes Patient is meeting Inpatient Rehab admission criteria:: Yes
[~2019-12-06 11:16] MED LIST: ACETAMINOPHEN 325 MG TABLET (FP) PO PRN; IBUPROFEN 400 MG TABLET (FP) PO PRN; LOPERAMIDE HCL 2 MG CAPSULE PO PRN; MAG HYDROX/AL HYDROX/SIMETH 30 ML UNIT-DOSE CUP PO PRN; MAGNESIUM CITRATE 300 ML BOTTLE PO PRN; MAGNESIUM HYDROX 2400MG/30ML ORAL SUSPENSION 30 ML CUP PO PRN; NICOTINE POLACRILEX 2 MG GUM BC PRN; P-EPHED 60MG/TRIPROLIDI 2.5MG TABLET PO PRN; guaiFENesin 200 MG/10 ML 10 ML UNIT-DOSE CUPS PO PRN
--- NOTE | 2019-12-06 13:46 | PN ---
[facility] Progress Note Note: PATIENT'S PREFERRED PHARMACY CALLED AND MEDICATIONS: GABAPENTIN, NORVASC, SYMBICORT AND NADOLOL CONFIRMED BY PHARMACIST ORDERED.
[2019-12-06] MEDS: HYDROCORTISONE 1% TOPICAL OINT 30 GM TUBE TP SCH ×2 (15:57→21:19)
[2019-12-06] MEDS ORDERED: MASKS NR ONE (18:58)
[2019-12-06] MEDS: THIAMINE HCL 100 MG TABLET (FP) PO SCH (21:18)
[2019-12-06] MEDS: levETIRAcetam 500 MG TABLET (FP) PO SCH (21:19)
[2019-12-06] MEDS: MELATONIN 5 MG TABLETS PO SCH (21:19)
[2019-12-06] MEDS: BUDESONIDE/FORMETEROL FUMARATE 160/4.5 mcg INHALER IH SCH (21:20)
[2019-12-06] MEDS: LACOSAMIDE 50 MG TABLET PO SCH (21:21)
[2019-12-06] MEDS ORDERED: THIAMINE HCL 100 MG TABLET (FP) PO SCH (22:00)
[2019-12-06] MEDS ORDERED: MELATONIN 5 MG TABLETS PO SCH (22:00)
[2019-12-07] MEDS ORDERED: MASKS NR ONE (06:38)
[2019-12-07] MEDS: HYDROCORTISONE 1% TOPICAL OINT 30 GM TUBE TP SCH ×3 (06:42→21:25)
[2019-12-07] MEDS ORDERED: PT OWN MED DRAWER 7, Y5N ONE ×2 (08:47→14:37)
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
[2019-12-07] MEDS ORDERED: PRENATAL VITAMINS W/ FOLIC ACID TABLET (FP) PO SCH (10:00)
[2019-12-07] MEDS: GABAPENTIN 400 MG CAPSULE PO SCH (10:48)
[2019-12-07] MEDS: NADOLOL 20 MG TABLET (FP) PO SCH (10:48)
[2019-12-07] MEDS: levETIRAcetam 500 MG TABLET (FP) PO SCH ×2 (10:48→21:25)
[2019-12-07] MEDS: PRENATAL VITAMINS W/ FOLIC ACID TABLET (FP) PO SCH (10:48)
[2019-12-07] MEDS: amLODIPine BESYLATE 5 MG TABLET (FP) PO SCH (10:49)
[2019-12-07] MEDS: BUDESONIDE/FORMETEROL FUMARATE 160/4.5 mcg INHALER IH SCH ×2 (10:49→21:26)
[2019-12-07] MEDS: LACOSAMIDE 50 MG TABLET PO SCH ×2 (10:49→21:27)
[2019-12-07] MEDS: IBUPROFEN 400 MG TABLET (FP) PO PRN (10:53)
[2019-12-07] MEDS: NICOTINE 7 MG/24 HOURS TOPICAL PATCH TD SCH ×2 (10:54→10:55)
[2019-12-07] MEDS: THIAMINE HCL 100 MG TABLET (FP) PO SCH (21:25)
[2019-12-07] MEDS: traZODone HCL 50 MG TABLET (FP) PO SCH (21:25)
[2019-12-07] MEDS: MELATONIN 5 MG TABLETS PO SCH (21:25)
[2019-12-08] MEDS: HYDROCORTISONE 1% TOPICAL OINT 30 GM TUBE TP SCH ×3 (06:48→21:19)
[2019-12-08] MEDS: levETIRAcetam 500 MG TABLET (FP) PO SCH ×2 (09:54→21:18)
[2019-12-08] MEDS: PRENATAL VITAMINS W/ FOLIC ACID TABLET (FP) PO SCH (09:55)
[2019-12-08] MEDS: LACOSAMIDE 50 MG TABLET PO SCH ×2 (09:55→21:18)
[2019-12-08] MEDS: NADOLOL 20 MG TABLET (FP) PO SCH (09:55)
[2019-12-08] MEDS: NICOTINE 7 MG/24 HOURS TOPICAL PATCH TD SCH ×2 (09:55)
[2019-12-08] MEDS: BUDESONIDE/FORMETEROL FUMARATE 160/4.5 mcg INHALER IH SCH ×2 (09:55→21:18)
[2019-12-08] MEDS: amLODIPine BESYLATE 5 MG TABLET (FP) PO SCH (09:55)
[2019-12-08] MEDS: GABAPENTIN 400 MG CAPSULE PO SCH (09:55)
[2019-12-08] MEDS: MELATONIN 5 MG TABLETS PO SCH (21:18)
[2019-12-08] MEDS: traZODone HCL 50 MG TABLET (FP) PO SCH (21:18)
[2019-12-08] MEDS: THIAMINE HCL 100 MG TABLET (FP) PO SCH (21:18)
[2019-12-09] MEDS: HYDROCORTISONE 1% TOPICAL OINT 30 GM TUBE TP SCH ×3 (06:45→21:17)
[2019-12-09] MEDS: NICOTINE 7 MG/24 HOURS TOPICAL PATCH TD SCH ×2 (09:58→09:59)
[2019-12-09] MEDS: GABAPENTIN 400 MG CAPSULE PO SCH (09:58)
[2019-12-09] MEDS: BUDESONIDE/FORMETEROL FUMARATE 160/4.5 mcg INHALER IH SCH ×2 (09:58→21:18)
[2019-12-09] MEDS: levETIRAcetam 500 MG TABLET (FP) PO SCH ×2 (09:58→21:15)
[2019-12-09] MEDS: LACOSAMIDE 50 MG TABLET PO SCH ×2 (09:58→21:17)
[2019-12-09] MEDS: amLODIPine BESYLATE 5 MG TABLET (FP) PO SCH (09:58)
[2019-12-09] MEDS: NADOLOL 20 MG TABLET (FP) PO SCH (09:58)
[2019-12-09] MEDS: PRENATAL VITAMINS W/ FOLIC ACID TABLET (FP) PO SCH (09:59)
--- NOTE | 2019-12-09 15:15 | PN ---
S Progress Note (SOAP) Subjective: at approximately 2:10 pm called to day room because Mr. Schrader was experiencing a seizure. According to witnesses, Mr. Schrader lowered imself to the ground, then started to shake. Mr. Schrader stated that he had a salty taste in his mouth (his aura) and knew what was going to happen. Witnesses state that he did not hit his head, and Mr. Schrader concurred. A rapid response was called. PMHx of seizures, on Vimpat and keppra Objective: VS at time of seizure: 113/58, p=70, RR-19, sat=98% General: no apparent distress HEENTM: normocephalic, PERRLA, EOMI, mouth: tongue intact, no bleeding noted. RESP: unlabored. MSK: full weight bearing, but for safety, transferred to a wheelchair and brought to his room Neuro: he did not lose consciousness, no cognitive deficits, knew where he was and could identify the staff members. Extremities: during this seizure he had signirficant right hand twitching that happened intermittently during the seizure and about 3 times after the seizure. 12/09/19 15:12 12/09/19 15:19 Assessment: 12/09/19 15:15 s/p seizure Plan: patient stabilized, permission received from patient to call his neurologist. Call placed, awaiting return call from Dr. Chandra Patient resting comfortably
[2019-12-09] MEDS: THIAMINE HCL 100 MG TABLET (FP) PO SCH (21:16)
[2019-12-09] MEDS: MELATONIN 5 MG TABLETS PO SCH (21:16)
[2019-12-09] MEDS: traZODone HCL 50 MG TABLET (FP) PO SCH (21:16)
[2019-12-10] MEDS: MAGNESIUM HYDROX 2400MG/30ML ORAL SUSPENSION 30 ML CUP PO PRN (03:49)
[2019-12-10] MEDS: HYDROCORTISONE 1% TOPICAL OINT 30 GM TUBE TP SCH ×3 (06:46→23:46)
[2019-12-10] MEDS ORDERED: PT OWN MED DRAWER 7, Y5N ONE (08:54)
[2019-12-10] MEDS: PRENATAL VITAMINS W/ FOLIC ACID TABLET (FP) PO SCH (10:08)
[2019-12-10] MEDS: BUDESONIDE/FORMETEROL FUMARATE 160/4.5 mcg INHALER IH SCH ×2 (10:08→23:47)
[2019-12-10] MEDS: levETIRAcetam 500 MG TABLET (FP) PO SCH ×2 (10:08→23:47)
[2019-12-10] MEDS: NADOLOL 20 MG TABLET (FP) PO SCH (10:08)
[2019-12-10] MEDS: amLODIPine BESYLATE 5 MG TABLET (FP) PO SCH (10:08)
[2019-12-10] MEDS: LACOSAMIDE 50 MG TABLET PO SCH ×2 (10:09→23:47)
[2019-12-10] MEDS: GABAPENTIN 400 MG CAPSULE PO SCH (10:09)
[2019-12-10] MEDS: NICOTINE 7 MG/24 HOURS TOPICAL PATCH TD SCH ×2 (10:10→10:11)
--- NOTE | 2019-12-10 16:41 | PN ---
[facility] Progress Note Note: Psychiatric nurse practitioner note: Mr. Schrader states that Trazodone 50mg is not effective. He continues to experience difficulty sleeping. States that he was awake the entire night last night. Patient requesting seroquel as oppose to trazodone. Will d/c trazodone 50mg HS and will order Seroquel 100mg (patent's request). Benefits and side effects discussed. Verbal consent given.
[2019-12-10] MEDS ORDERED: LORazepam 2 MG/ML SDV VIAL ONE (19:04)
[2019-12-10] MEDS ORDERED: LORazepam 2 MG/ML SDV VIAL IVPUSH ONE (19:10)
--- NOTE | 2019-12-10 19:34 | PN ---
[facility] Progress Note Note: Patient was in the activity room and had intermittent tonic clonic seizures that started about 6.57pm and Rapid response was initiated at 6.59pm . Multiple intermittent tonic clonic seizure persisted between 7.06pm - 7.11pm. Ativan 2mg IV push was given intravenous push via right AC at 7.10pm. EMS responded at about 7.15pm. At 7.26pm, patient had another tonic clonic seizure that lasted about 5 seconds. Patient seizure medications are Keppra and Vimpat and he had a prior seizure activity yesterday as per the nurse, Ms. Maribel Holloway. Patient is to be transferred to emergency room for further evaluation. Endorsed to Dr. Mcfarlane. Vital Signs Temperature 97.7 F 12/10/19 08:26 Pulse Rate 102 H 12/10/19 19:10 Respiratory Rate 16 12/10/19 19:10 Blood Pressure 95/53 L 12/10/19 19:10 O2 Sat by Pulse Oximetry (%) 98 12/10/19 15:06 Action: Ativan 2mg intravenous push given Transfer patient to ER
[2019-12-10] MEDS: QUEtiapine FUMARATE 100 MG TABLET (FP) PO SCH (23:47)
[2019-12-10] MEDS: MELATONIN 5 MG TABLETS PO SCH (23:47)
[2019-12-10] MEDS: THIAMINE HCL 100 MG TABLET (FP) PO SCH (23:48)
[2019-12-11] MEDS: hydrOXYzine PAMOATE 25 MG CAPSULE (FP) PO PRN (02:14)
--- NOTE | 2019-12-11 03:09 | PN ---
[facility] Progress Note Note: Patient came back from emergency room. As per Dr. Cowart, case was discussed with Dr. Butler scale reclamation tender for Dr. Chandra.And they recommended increasing either Keppra to 2000mg BID or Vimpat to 75AM/50PM. Will increase Keppra to 2000BID. Giving 2000mg Keppra and 50mg Vimpat for tonight's dose. -CT head possible chronic right orbit fracture, no acute intracranial abnormality. -CT C-spine no acute fracture, C3-C4 stenosis. -ECG broad mild ST elevations but consistent with priors, HR 86, QTc 430. -CXR unremarkable, grossly unchanged from prior 7 days ago. Vital Signs Temperature 97.7 F 12/11/19 06:31 Pulse Rate 56 L 12/11/19 06:31 Respiratory Rate 18 12/11/19 06:31 Blood Pressure 122/78 12/11/19 06:31 O2 Sat by Pulse Oximetry (%) 97 12/11/19 06:31 Action: Contacted Pharmacy, but we are unable to increase Keppra due to patient's renal function Continue 1500 mg BID
[2019-12-11] MEDS: HYDROCORTISONE 1% TOPICAL OINT 30 GM TUBE TP SCH ×3 (06:28→21:20)
[2019-12-11] MEDS ORDERED: PT OWN MED DRAWER 7, Y5N ONE (09:37)
[2019-12-11] MEDS: amLODIPine BESYLATE 5 MG TABLET (FP) PO SCH (10:05)
[2019-12-11] MEDS: levETIRAcetam 500 MG TABLET (FP) PO SCH ×2 (10:05→21:19)
[2019-12-11] MEDS: LACOSAMIDE 50 MG TABLET PO SCH ×2 (10:05→21:21)
[2019-12-11] MEDS: PRENATAL VITAMINS W/ FOLIC ACID TABLET (FP) PO SCH (10:05)
[2019-12-11] MEDS: BUDESONIDE/FORMETEROL FUMARATE 160/4.5 mcg INHALER IH SCH ×2 (10:06→21:20)
[2019-12-11] MEDS: GABAPENTIN 400 MG CAPSULE PO SCH (10:06)
[2019-12-11] MEDS: NICOTINE 7 MG/24 HOURS TOPICAL PATCH TD SCH ×2 (10:06)
[2019-12-11] MEDS: NADOLOL 20 MG TABLET (FP) PO SCH (10:06)
[2019-12-11] MEDS ORDERED: MASKS NR ONE (21:18)
[2019-12-11] MEDS: MELATONIN 5 MG TABLETS PO SCH (21:19)
[2019-12-11] MEDS: THIAMINE HCL 100 MG TABLET (FP) PO SCH (21:19)
[2019-12-11] MEDS: QUEtiapine FUMARATE 100 MG TABLET (FP) PO SCH (21:19)
[2019-12-12] MEDS: HYDROCORTISONE 1% TOPICAL OINT 30 GM TUBE TP SCH ×3 (06:01→21:25)
[2019-12-12] MEDS ORDERED: PT OWN MED DRAWER 7, Y5N ONE ×2 (09:28→09:56)
[2019-12-12] MEDS: hydrOXYzine PAMOATE 25 MG CAPSULE (FP) PO PRN (09:54)
[2019-12-12] MEDS: BUDESONIDE/FORMETEROL FUMARATE 160/4.5 mcg INHALER IH SCH ×2 (09:54→21:21)
[2019-12-12] MEDS: GABAPENTIN 400 MG CAPSULE PO SCH (09:54)
[2019-12-12] MEDS: LACOSAMIDE 50 MG TABLET PO SCH ×2 (09:54→21:21)
[2019-12-12] MEDS: PRENATAL VITAMINS W/ FOLIC ACID TABLET (FP) PO SCH (09:54)
[2019-12-12] MEDS: levETIRAcetam 500 MG TABLET (FP) PO SCH ×2 (09:54→21:20)
[2019-12-12] MEDS: NICOTINE 7 MG/24 HOURS TOPICAL PATCH TD SCH ×2 (09:55→11:25)
[2019-12-12] MEDS: amLODIPine BESYLATE 5 MG TABLET (FP) PO SCH (09:55)
[2019-12-12] MEDS: NADOLOL 20 MG TABLET (FP) PO SCH (09:56)
--- NOTE | 2019-12-12 12:14 | PN ---
[facility] Progress Note Note: responded to rapid respond patient has seizure on arrival,no seizure activity patient is alert seizure about 30 second patient has been on keppra 1500 mggs po bid and vimpat 50 mgs po bid t 98.7,p68,r18,bp 98/75 close monitoring
[2019-12-12] MEDS: MELATONIN 5 MG TABLETS PO SCH (21:20)
[2019-12-12] MEDS: THIAMINE HCL 100 MG TABLET (FP) PO SCH (21:21)
[2019-12-12] MEDS: QUEtiapine FUMARATE 100 MG TABLET (FP) PO SCH (21:21)
[2019-12-13] MEDS: HYDROCORTISONE 1% TOPICAL OINT 30 GM TUBE TP SCH ×3 (06:29→21:20)
[2019-12-13] MEDS ORDERED: PT OWN MED DRAWER 7, Y5N ONE (08:43)
[2019-12-13] MEDS: NADOLOL 20 MG TABLET (FP) PO SCH (10:05)
[2019-12-13] MEDS: levETIRAcetam 500 MG TABLET (FP) PO SCH ×2 (10:05→21:17)
[2019-12-13] MEDS: PRENATAL VITAMINS W/ FOLIC ACID TABLET (FP) PO SCH (10:06)
[2019-12-13] MEDS: LACOSAMIDE 50 MG TABLET PO SCH ×2 (10:06→21:19)
[2019-12-13] MEDS: GABAPENTIN 400 MG CAPSULE PO SCH (10:06)
[2019-12-13] MEDS: NICOTINE 7 MG/24 HOURS TOPICAL PATCH TD SCH ×2 (10:06)
[2019-12-13] MEDS: BUDESONIDE/FORMETEROL FUMARATE 160/4.5 mcg INHALER IH SCH ×2 (10:06→21:18)
[2019-12-13] MEDS: amLODIPine BESYLATE 5 MG TABLET (FP) PO SCH (10:06)
--- NOTE | 2019-12-13 13:00 | PN ---
[facility] Progress Note Note: Vital Signs Temperature 97.8 F 12/13/19 08:27 Pulse Rate 71 12/13/19 08:27 Respiratory Rate 18 12/13/19 08:27 Blood Pressure 117/81 12/13/19 08:27 O2 Sat by Pulse Oximetry (%) 98 12/13/19 06:25 Informed by nursing staff patient had seizure on 12/12/2019. Dr. Campoverde informed of patient's recent seizure activity as MD is familiar with patient's case and neurologist Dr. Chandra. Dr. Campoverde called Dr. Chandra to inform MD of recent seizure. Awaiting call back. Keppra level pending.
--- NOTE | 2019-12-13 13:37 | PN ---
[facility] Progress Note Note: Chart reviewed Recent seizures on 12/02, 12/08 and 12/09. Seizure on 12/02 witnessed by myself: several seconds of tonic clonic motion with rapid return of mentation. Pt relates a feeling of happiness as aura prior to loss of consciousness. Seizure felt related to med noncompliance as Vimpat was not reordered on admission On 12/08 another witnessed seizure. MANDY May spoke to Dr. Radha Chandra on 12/08, no change in meds including: Keppra 1500 bid, Vimpat 50 bid [address] Neo Ruby today to review case. It may be possible that actual seizure frequency is underestimated and pt will require further workup with [facility] Epileptology staff: Dr. Radha Chandra, which may include half-way EEG monitoring and/or repeat imaging. Of note, pt has been to the ED on 12/09 at [facility] and had a head CT: impression: no acute intracranial pathology. Fracture right medial orbit, may be chronic. Plan 1. Increase Vimpat to 50 mg in the am, 100 mg in the pm x 3 d, if tolerated (ie no side effects of sedation, nausea, vomiting etc), will increase to 100 mg bid 2. Upon discharge from Rehab pt to follow up with Dr. Chandra [phone] 3. Plan discussed with MANDY Hall who will ask pt if any hx of orbital fracture on the right.
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
[2019-12-13] MEDS: QUEtiapine FUMARATE 100 MG TABLET (FP) PO SCH (21:17)
[2019-12-13] MEDS: MELATONIN 5 MG TABLETS PO SCH (21:17)
[2019-12-13] MEDS: THIAMINE HCL 100 MG TABLET (FP) PO SCH (21:18)
[2019-12-13] MEDS: MAGNESIUM HYDROX 2400MG/30ML ORAL SUSPENSION 30 ML CUP PO PRN (22:57)
[2019-12-14] MEDS ORDERED: LORazepam 2 MG/ML SDV VIAL IM ONE (06:04)
[2019-12-14] MEDS ORDERED: GABAPENTIN 300 MG CAPSULE PO ONE (06:07)
[2019-12-14] MEDS ORDERED: LORazepam 2 MG/ML SDV VIAL ONE (06:14)
--- NOTE | 2019-12-14 06:15 | PN ---
[facility] Progress Note Note: called by nursing @ for pt having seizure-like activity . Pt found in bed, left lateral recumbent , no seizure activity noted . Pt alert and oriented x 3 . No injuries noted or reported, pt able to converse freely . Per chart, pt w/ multiple recent seizure-like episodes, was in ER 12/09-12/10 . Meds changed yesterday , Vimpat increased to 100 mg @ HS . pt on MDD Keppra 3000 mg /day . Vital Signs - 24 hr 12/13/19 12/13/19 12/13/19 06:25 08:27 15:21 Temperature 97.8 F 97.8 F Pulse Rate 55 L 71 Respiratory 20 18 Rate Blood Pressure 124/71 117/81 O2 Sat by Pulse 98 98 Oximetry (%) 12/13/19 20:35 Temperature 97.3 F L Pulse Rate Respiratory Rate Blood Pressure O2 Sat by Pulse 98 Oximetry (%) T98.6 BP 120/69 R 18 P64 O2 97 P : Ativan 2 mg x once ordered Gabapentin 300 mg x once ordered Nursing aware .
[2019-12-14] MEDS: HYDROCORTISONE 1% TOPICAL OINT 30 GM TUBE TP SCH ×3 (06:35→21:28)
[2019-12-14] MEDS ORDERED: PT OWN MED DRAWER 7, Y5N ONE (09:13)
[2019-12-14] MEDS: PRENATAL VITAMINS W/ FOLIC ACID TABLET (FP) PO SCH (10:30)
[2019-12-14] MEDS: amLODIPine BESYLATE 5 MG TABLET (FP) PO SCH (10:30)
[2019-12-14] MEDS: BUDESONIDE/FORMETEROL FUMARATE 160/4.5 mcg INHALER IH SCH ×2 (10:31→21:28)
[2019-12-14] MEDS: GABAPENTIN 400 MG CAPSULE PO SCH (10:31)
[2019-12-14] MEDS: levETIRAcetam 500 MG TABLET (FP) PO SCH ×2 (10:31→21:27)
[2019-12-14] MEDS: LACOSAMIDE 50 MG TABLET PO SCH ×2 (10:31→21:27)
[2019-12-14] MEDS: NICOTINE 7 MG/24 HOURS TOPICAL PATCH TD SCH ×2 (10:32)
[2019-12-14] MEDS: NADOLOL 20 MG TABLET (FP) PO SCH (10:32)
--- NOTE | 2019-12-14 11:58 | PN ---
[facility] Progress Note Note: Pt was reported to have had a seizure earlier this morning. saw patient sitting in room and communicating coherently. Reports he feels fine now, Vital Signs - 24 hr 12/13/19 12/13/19 12/14/19 15:21 20:35 05:50 Temperature 97.3 F L 98.6 F Pulse Rate 64 Respiratory 18 Rate Blood Pressure 120/69 O2 Sat by Pulse 98 98 97 Oximetry (%) 12/14/19 12/14/19 09:02 13:35 Temperature 98.4 F Pulse Rate 63 Respiratory 18 Rate Blood Pressure 129/69 O2 Sat by Pulse 98 Oximetry (%) Alert o x3 nad. Cont to monitor pt. sezure precautions maintained
--- NOTE | 2019-12-14 15:20 | PN ---
S Progress Note (SOAP) Subjective: Called by nurse this time to report pt might be having a seizure as per his roommate. Nurse states on arrival to pt's room, she saw some seizure activity. Pt was seen by magazine writer laying in bed awake communicating coherently and reports he was sleeping but felt chills and a bit shaky from being cold in the room. However, pt had right hand tremors while talking. Pt had a seizure at about 6 a.m this morning. Medications adjusted by Dr. Campoverde-Vimpat 100mg po BID. Dr. Campoverde spoke to the Epileptologist Dr. Chandra with patient plan as follows as per Dr. Campoverde's notes of 12/13/19 below: 1. Increase Vimpat to 50 mg in the am, 100 mg in the pm x 3 d, if tolerated (ie no side effects of sedation, nausea, vomiting etc), will increase to 100 mg bid 2. Upon discharge from Rehab pt to follow up with Dr. Chandra [phone] 3. Plan discussed with MANDY Hall who will ask pt if any hx of orbital fracture on the right. As per Chica Hall note of 12/13/19: "Dr. Campoverde's note reviewed and appreciated. Patient reports he sustained orbital fracture from boxing and playing sports when he was younger. Patient up dated on plan of care regarding seizure medication and agrees with plan. Keppra level results stable." Objective: 12/14/19 16:03 Vital Signs - 24 hr 12/13/19 12/14/19 12/14/19 20:35 05:50 09:02 Temperature 97.3 F L 98.6 F 98.4 F Pulse Rate 64 63 Respiratory 18 18 Rate Blood Pressure 120/69 129/69 O2 Sat by Pulse 98 97 Oximetry (%) 12/14/19 12/14/19 13:35 15:12 Temperature 98.4 F Pulse Rate 57 L Respiratory 18 Rate Blood Pressure 124/69 O2 Sat by Pulse 98 96 Oximetry (%) VSS Alert o x 3, coherent cardiac:s1 s2,rrr lungs;ctab Extremities;no edema, brief hand tremors noted. Assessment: 12/14/19 16:03 Seizure activity Plan: Maintain safety Vimpat 100 mg po at hs today, then BID continue keppra as directed. D/w Lizzette Boucher about patient's discharge planning to be followed up with serenity ruano. 1. Staff to assist patient on where,how and when to discharge pt safely to enable him follow up with his Epileptologist at [facility]. 2. Make appointment with the Epileptologist before discharge with appointment date/time.
[2019-12-14] MEDS: QUEtiapine FUMARATE 100 MG TABLET (FP) PO SCH (21:27)
[2019-12-14] MEDS: THIAMINE HCL 100 MG TABLET (FP) PO SCH (21:27)
[2019-12-14] MEDS: MELATONIN 5 MG TABLETS PO SCH (21:27)
[2019-12-15] MEDS: HYDROCORTISONE 1% TOPICAL OINT 30 GM TUBE TP SCH ×3 (06:32→21:24)
[2019-12-15] MEDS ORDERED: PT OWN MED DRAWER 7, Y5N ONE ×2 (08:51→10:35)
[2019-12-15] MEDS: NADOLOL 20 MG TABLET (FP) PO SCH (10:32)
[2019-12-15] MEDS: amLODIPine BESYLATE 5 MG TABLET (FP) PO SCH (10:32)
[2019-12-15] MEDS: GABAPENTIN 400 MG CAPSULE PO SCH (10:32)
[2019-12-15] MEDS: PRENATAL VITAMINS W/ FOLIC ACID TABLET (FP) PO SCH (10:32)
[2019-12-15] MEDS: LACOSAMIDE 50 MG TABLET PO SCH ×2 (10:33→21:24)
[2019-12-15] MEDS: levETIRAcetam 500 MG TABLET (FP) PO SCH ×2 (10:34→21:23)
[2019-12-15] MEDS: NICOTINE 7 MG/24 HOURS TOPICAL PATCH TD SCH ×2 (10:36)
[2019-12-15] MEDS: BUDESONIDE/FORMETEROL FUMARATE 160/4.5 mcg INHALER IH SCH ×2 (10:37→21:25)
[2019-12-15] MEDS: QUEtiapine FUMARATE 100 MG TABLET (FP) PO SCH (21:23)
[2019-12-15] MEDS: THIAMINE HCL 100 MG TABLET (FP) PO SCH (21:23)
[2019-12-15] MEDS: MELATONIN 5 MG TABLETS PO SCH (21:23)
[2019-12-16] MEDS: HYDROCORTISONE 1% TOPICAL OINT 30 GM TUBE TP SCH ×3 (06:39→21:23)
[2019-12-16] MEDS ORDERED: PT OWN MED DRAWER 7, Y5N ONE (08:52)
[2019-12-16] MEDS: NADOLOL 20 MG TABLET (FP) PO SCH (10:06)
[2019-12-16] MEDS: GABAPENTIN 400 MG CAPSULE PO SCH (10:06)
[2019-12-16] MEDS: LACOSAMIDE 50 MG TABLET PO SCH ×2 (10:06→21:24)
[2019-12-16] MEDS: levETIRAcetam 500 MG TABLET (FP) PO SCH ×2 (10:06→21:23)
[2019-12-16] MEDS: amLODIPine BESYLATE 5 MG TABLET (FP) PO SCH (10:06)
[2019-12-16] MEDS: BUDESONIDE/FORMETEROL FUMARATE 160/4.5 mcg INHALER IH SCH ×2 (10:06→21:23)
[2019-12-16] MEDS: NICOTINE 7 MG/24 HOURS TOPICAL PATCH TD SCH ×2 (10:06→10:07)
[2019-12-16] MEDS: IBUPROFEN 400 MG TABLET (FP) PO PRN (10:08)
[2019-12-16] MEDS: PRENATAL VITAMINS W/ FOLIC ACID TABLET (FP) PO SCH (10:10)
--- NOTE | 2019-12-16 10:48 | PN ---
S Progress Note Note: Patient c/o lower back pain. States history of spinal surgery, using cane and ambulating safely Vital Signs Period Temp Pulse Resp BP Sys/Scott Pulse Ox Last 24 Hr 97.3 F-97.8 F 53-69 18-18 116-120/73-78 98-98 General: patient appears to be in pain MSK; weight bearing with cane, limited ROM, Skin: surgical scar,lower back A/P Lower back pain- encouraged client to take motrin as prescribed, added lidoderm patch
[2019-12-16] MEDS: QUEtiapine FUMARATE 100 MG TABLET (FP) PO SCH (21:23)
[2019-12-16] MEDS: THIAMINE HCL 100 MG TABLET (FP) PO SCH (21:23)
[2019-12-16] MEDS: LIDOCAINE PATCH REMOVAL MC SCH (21:23)
[2019-12-16] MEDS: MELATONIN 5 MG TABLETS PO SCH (21:23)
[2019-12-17] MEDS: HYDROCORTISONE 1% TOPICAL OINT 30 GM TUBE TP SCH ×3 (06:46→21:28)
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
[2019-12-17] MEDS: NADOLOL 20 MG TABLET (FP) PO SCH (10:20)
[2019-12-17] MEDS: LACOSAMIDE 50 MG TABLET PO SCH ×2 (10:20→21:28)
[2019-12-17] MEDS: PRENATAL VITAMINS W/ FOLIC ACID TABLET (FP) PO SCH (10:20)
[2019-12-17] MEDS: levETIRAcetam 500 MG TABLET (FP) PO SCH ×2 (10:21→21:26)
[2019-12-17] MEDS: GABAPENTIN 400 MG CAPSULE PO SCH (10:21)
[2019-12-17] MEDS: NICOTINE 7 MG/24 HOURS TOPICAL PATCH TD SCH ×2 (10:21)
[2019-12-17] MEDS: amLODIPine BESYLATE 5 MG TABLET (FP) PO SCH (10:21)
[2019-12-17] MEDS: BUDESONIDE/FORMETEROL FUMARATE 160/4.5 mcg INHALER IH SCH ×2 (10:21→21:26)
[2019-12-17] MEDS: LIDOCAINE 5% TOPICAL PATCH TP SCH (10:45)
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
--- NOTE | 2019-12-17 15:20 | CONSULT ---
[facility] Psychiatric Consult - Data Date of interview: 12/17/19
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
[2019-12-17] MEDS: LIDOCAINE PATCH REMOVAL MC SCH (21:26)
[2019-12-17] MEDS: THIAMINE HCL 100 MG TABLET (FP) PO SCH (21:26)
[2019-12-17] MEDS: MELATONIN 5 MG TABLETS PO SCH (21:26)
[2019-12-17] MEDS: QUEtiapine FUMARATE 200 MG TABLET PO SCH (21:27)
[2019-12-18] MEDS: HYDROCORTISONE 1% TOPICAL OINT 30 GM TUBE TP SCH ×3 (06:57→21:37)
[2019-12-18] MEDS: PRENATAL VITAMINS W/ FOLIC ACID TABLET (FP) PO SCH (10:20)
[2019-12-18] MEDS: GABAPENTIN 400 MG CAPSULE PO SCH (10:20)
[2019-12-18] MEDS: levETIRAcetam 500 MG TABLET (FP) PO SCH ×2 (10:20→21:36)
[2019-12-18] MEDS: LACOSAMIDE 50 MG TABLET PO SCH ×2 (10:20→21:37)
[2019-12-18] MEDS: LIDOCAINE 5% TOPICAL PATCH TP SCH (10:20)
[2019-12-18] MEDS: BUDESONIDE/FORMETEROL FUMARATE 160/4.5 mcg INHALER IH SCH ×2 (10:20→21:38)
[2019-12-18] MEDS: NICOTINE 7 MG/24 HOURS TOPICAL PATCH TD SCH ×2 (10:21)
[2019-12-18] MEDS: amLODIPine BESYLATE 5 MG TABLET (FP) PO SCH (10:21)
[2019-12-18] MEDS: NADOLOL 20 MG TABLET (FP) PO SCH (10:21)
[2019-12-18] MEDS: IBUPROFEN 400 MG TABLET (FP) PO PRN (14:20)
[2019-12-18] MEDS: THIAMINE HCL 100 MG TABLET (FP) PO SCH (21:36)
[2019-12-18] MEDS: QUEtiapine FUMARATE 200 MG TABLET PO SCH (21:37)
[2019-12-18] MEDS: MELATONIN 5 MG TABLETS PO SCH (21:37)
[2019-12-18] MEDS: LIDOCAINE PATCH REMOVAL MC SCH (21:37)
[2019-12-19] MEDS: HYDROCORTISONE 1% TOPICAL OINT 30 GM TUBE TP SCH ×3 (06:04→21:20)
[2019-12-19] MEDS: levETIRAcetam 500 MG TABLET (FP) PO SCH ×2 (09:09→21:19)
[2019-12-19] MEDS: PRENATAL VITAMINS W/ FOLIC ACID TABLET (FP) PO SCH (09:09)
[2019-12-19] MEDS: LIDOCAINE 5% TOPICAL PATCH TP SCH (09:09)
[2019-12-19] MEDS: BUDESONIDE/FORMETEROL FUMARATE 160/4.5 mcg INHALER IH SCH ×2 (09:09→21:20)
[2019-12-19] MEDS: NADOLOL 20 MG TABLET (FP) PO SCH (09:10)
[2019-12-19] MEDS: LACOSAMIDE 50 MG TABLET PO SCH ×2 (09:10→21:20)
[2019-12-19] MEDS: GABAPENTIN 400 MG CAPSULE PO SCH (09:10)
[2019-12-19] MEDS: NICOTINE 7 MG/24 HOURS TOPICAL PATCH TD SCH ×2 (09:10)
[2019-12-19] MEDS: amLODIPine BESYLATE 5 MG TABLET (FP) PO SCH (09:10)
[2019-12-19] MEDS: QUEtiapine FUMARATE 200 MG TABLET PO SCH (21:19)
[2019-12-19] MEDS: MELATONIN 5 MG TABLETS PO SCH (21:19)
[2019-12-19] MEDS: THIAMINE HCL 100 MG TABLET (FP) PO SCH (21:19)
[2019-12-19] MEDS: LIDOCAINE PATCH REMOVAL MC SCH (21:19)
[2019-12-20] MEDS: HYDROCORTISONE 1% TOPICAL OINT 30 GM TUBE TP SCH ×3 (06:40→21:38)
[2019-12-20] MEDS: levETIRAcetam 500 MG TABLET (FP) PO SCH ×2 (10:31→21:32)
[2019-12-20] MEDS: GABAPENTIN 400 MG CAPSULE PO SCH (10:31)
[2019-12-20] MEDS: amLODIPine BESYLATE 5 MG TABLET (FP) PO SCH (10:31)
[2019-12-20] MEDS: PRENATAL VITAMINS W/ FOLIC ACID TABLET (FP) PO SCH (10:31)
[2019-12-20] MEDS: NADOLOL 20 MG TABLET (FP) PO SCH (10:32)
[2019-12-20] MEDS: NICOTINE 7 MG/24 HOURS TOPICAL PATCH TD SCH ×2 (10:32)
[2019-12-20] MEDS: LIDOCAINE 5% TOPICAL PATCH TP SCH (10:32)
[2019-12-20] MEDS: BUDESONIDE/FORMETEROL FUMARATE 160/4.5 mcg INHALER IH SCH ×2 (10:35→21:33)
[2019-12-20] MEDS ORDERED: PT OWN MED DRAWER 7, Y5N ONE ×2 (10:36→18:41)
--- NOTE | 2019-12-20 13:01 | PN ---
S Progress Note Note: 59 years old male with long history of seizure gabapentin and keppra had seizure episode on friday12/19/19 about 1 minute no experimental mechanic injury noted recovery slowly with eye contact and speaking with staff "I am tired" consider increase keppra mr noguera prefers return to his neurologist for further evaluation for m edication adjustment
[2019-12-20] MEDS: LIDOCAINE PATCH REMOVAL MC SCH (21:32)
[2019-12-20] MEDS: QUEtiapine FUMARATE 200 MG TABLET PO SCH (21:32)
[2019-12-20] MEDS: THIAMINE HCL 100 MG TABLET (FP) PO SCH (21:33)
[2019-12-20] MEDS: MELATONIN 5 MG TABLETS PO SCH (21:33)
--- NOTE | 2019-12-20 21:50 | PN ---
[facility] Progress Note Note: called by nursing , Vimpat order P : order renewed , per MAR 100 mg bid .
[2019-12-20] MEDS: LACOSAMIDE 50 MG TABLET PO SCH (22:16)
[2019-12-21] MEDS: HYDROCORTISONE 1% TOPICAL OINT 30 GM TUBE TP SCH ×3 (06:40→21:21)
[2019-12-21] MEDS: LACOSAMIDE 50 MG TABLET PO SCH ×2 (09:52→21:21)
[2019-12-21] MEDS: GABAPENTIN 400 MG CAPSULE PO SCH (09:52)
[2019-12-21] MEDS: PRENATAL VITAMINS W/ FOLIC ACID TABLET (FP) PO SCH (09:52)
[2019-12-21] MEDS: amLODIPine BESYLATE 5 MG TABLET (FP) PO SCH (09:52)
[2019-12-21] MEDS: NADOLOL 20 MG TABLET (FP) PO SCH (09:52)
[2019-12-21] MEDS: NICOTINE 7 MG/24 HOURS TOPICAL PATCH TD SCH ×2 (09:52→09:53)
[2019-12-21] MEDS: LIDOCAINE 5% TOPICAL PATCH TP SCH (09:53)
[2019-12-21] MEDS: BUDESONIDE/FORMETEROL FUMARATE 160/4.5 mcg INHALER IH SCH ×2 (09:53→21:21)
[2019-12-21] MEDS: TETRAHYDROZOLINE HCL EYE DROPS OD PRN (09:56)
[2019-12-21] MEDS: levETIRAcetam 500 MG TABLET (FP) PO SCH ×2 (12:03→21:20)
[2019-12-21] MEDS: QUEtiapine FUMARATE 200 MG TABLET PO SCH (21:20)
[2019-12-21] MEDS: LIDOCAINE PATCH REMOVAL MC SCH (21:20)
[2019-12-21] MEDS: THIAMINE HCL 100 MG TABLET (FP) PO SCH (21:20)
[2019-12-21] MEDS: MELATONIN 5 MG TABLETS PO SCH (21:20)
[2019-12-22] MEDS: HYDROCORTISONE 1% TOPICAL OINT 30 GM TUBE TP SCH ×3 (06:23→21:19)
[2019-12-22] MEDS: levETIRAcetam 500 MG TABLET (FP) PO SCH ×2 (10:01→21:19)
[2019-12-22] MEDS: NADOLOL 20 MG TABLET (FP) PO SCH (10:02)
[2019-12-22] MEDS: LACOSAMIDE 50 MG TABLET PO SCH ×2 (10:02→22:05)
[2019-12-22] MEDS: amLODIPine BESYLATE 5 MG TABLET (FP) PO SCH (10:02)
[2019-12-22] MEDS: GABAPENTIN 400 MG CAPSULE PO SCH (10:02)
[2019-12-22] MEDS: LIDOCAINE 5% TOPICAL PATCH TP SCH (10:02)
[2019-12-22] MEDS: PRENATAL VITAMINS W/ FOLIC ACID TABLET (FP) PO SCH (10:02)
[2019-12-22] MEDS: NICOTINE 7 MG/24 HOURS TOPICAL PATCH TD SCH ×2 (10:02)
[2019-12-22] MEDS ORDERED: PT OWN MED DRAWER 7, Y5N ONE ×3 (10:04→21:21)
[2019-12-22] MEDS: BUDESONIDE/FORMETEROL FUMARATE 160/4.5 mcg INHALER IH SCH ×2 (10:04→21:20)
[2019-12-22] MEDS: TETRAHYDROZOLINE HCL EYE DROPS OD PRN ×2 (10:06→21:22)
[2019-12-22] MEDS: LIDOCAINE PATCH REMOVAL MC SCH (21:19)
[2019-12-22] MEDS: MELATONIN 5 MG TABLETS PO SCH (21:19)
[2019-12-22] MEDS: QUEtiapine FUMARATE 200 MG TABLET PO SCH (21:19)
[2019-12-22] MEDS: THIAMINE HCL 100 MG TABLET (FP) PO SCH (21:19)
[2019-12-23] MEDS: HYDROCORTISONE 1% TOPICAL OINT 30 GM TUBE TP SCH ×3 (06:52→21:24)
[2019-12-23] MEDS: NADOLOL 20 MG TABLET (FP) PO SCH (09:31)
[2019-12-23] MEDS: amLODIPine BESYLATE 5 MG TABLET (FP) PO SCH (09:31)
[2019-12-23] MEDS: LIDOCAINE 5% TOPICAL PATCH TP SCH (09:31)
[2019-12-23] MEDS: levETIRAcetam 500 MG TABLET (FP) PO SCH ×2 (09:31→21:24)
[2019-12-23] MEDS: GABAPENTIN 400 MG CAPSULE PO SCH (09:31)
[2019-12-23] MEDS: PRENATAL VITAMINS W/ FOLIC ACID TABLET (FP) PO SCH (09:32)
[2019-12-23] MEDS: BUDESONIDE/FORMETEROL FUMARATE 160/4.5 mcg INHALER IH SCH ×2 (09:32→21:25)
[2019-12-23] MEDS: NICOTINE 7 MG/24 HOURS TOPICAL PATCH TD SCH ×2 (09:32)
[2019-12-23] MEDS: LACOSAMIDE 50 MG TABLET PO SCH ×2 (09:32→21:26)
[2019-12-23] MEDS: TETRAHYDROZOLINE HCL EYE DROPS OD PRN (15:15)
[2019-12-23] MEDS: THIAMINE HCL 100 MG TABLET (FP) PO SCH (21:24)
[2019-12-23] MEDS: QUEtiapine FUMARATE 200 MG TABLET PO SCH (21:24)
[2019-12-23] MEDS: METHYL SALICYLATE/MENTHOL OINT 30 GM TUBE TP SCH (21:25)
[2019-12-23] MEDS: MELATONIN 5 MG TABLETS PO SCH (21:25)
[2019-12-23] MEDS: LIDOCAINE PATCH REMOVAL MC SCH (21:25)
[2019-12-23] MEDS: IBUPROFEN 600 MG TABLET (FP) PO PRN (21:26)
[2019-12-24] MEDS: HYDROCORTISONE 1% TOPICAL OINT 30 GM TUBE TP SCH ×3 (06:49→21:35)
--- NOTE | 2019-12-24 08:52 | PN ---
[facility] Progress Note Note: Notified by nursing patient c/o insomnia. Psych consult ordered.
--- NOTE | 2019-12-24 10:12 | PN ---
Psychiatric Progress Note Vital Signs: Vital Signs Period Temp Pulse Resp BP Sys/Scott Pulse Ox Last 24 Hr 98.5 F-98.5 F 69 18 117/79 98-98 Date of Session: 12/24/19 Chief Complaint:: "I'm not sleeping." HPI: Patient admitted to [facility] for alcohol and marijuana dependence. Consultation ordered due to patient reporting difficulty sleeping. ROS: Patient is ambulatory, alert +oriented X3. Current Medications: Active Medications Generic Name Dose Route Start Last Admin Trade Name Freq PRN Reason Stop Dose Admin Acetaminophen 650 mg 12/06/19 10:55 Tylenol - PO Q4H PRN FEVER Al Hydroxide/Mg Hydroxide 30 ml 12/06/19 10:42 Mylanta Oral Suspension - PO Q6H PRN DYSPEPSIA Amlodipine Besylate 5 mg 12/07/19 10:00 12/23/19 09:31 Norvasc - PO 5 mg DAILY MICHAELA Administration Budesonide/Formoterol Fumarate 2 puff 12/06/19 22:00 12/23/19 21:25 Symbicort 160/4.5mcg - IH Not Given BID MICHAELA Gabapentin 800 mg 12/07/19 10:00 12/23/19 09:31 Neurontin - PO 800 mg DAILY MICHAELA Administration Guaifenesin 10 ml 12/06/19 10:42 Robitussin - PO Q6H PRN COUGH Hydrocortisone 1 applic 12/06/19 14:00 12/24/19 06:49 Hytone 1% Ointment - TP Not Given TID MICHAELA Hydroxyzine Pamoate 25 mg 12/07/19 10:43 12/12/19 09:54 Vistaril - PO 25 mg Q4H PRN Administration ANXIETY Ibuprofen 600 mg 12/23/19 13:47 12/23/19 21:26 Motrin - PO 600 mg Q4H PRN Administration PAIN LEVEL 4 - 6 Lacosamide 100 mg 12/20/19 22:00 12/23/19 21:26 Vimpat - PO 100 mg BID MICHAELA Administration Levetiracetam 1,500 mg 12/06/19 22:00 12/23/19 21:24 Keppra - PO 1,500 mg BID MICHAELA Administration Lidocaine 1 patch 12/17/19 10:00 12/23/19 09:31 Lidoderm Patch - TP 1 patch DAILY MICHAELA Administration Loperamide HCl 4 mg 12/06/19 10:42 Imodium - PO Q6H PRN DIARRHEA Magnesium Citrate 300 ml 12/06/19 10:55 Citroma - PO Q48H PRN CONSTIPATION Methyl Salicylate 1 applic 12/23/19 22:00 12/23/19 21:25 Eduin-Aly - TP Not Given DAILY@2200 MICHAELA Miscellaneous 1 each 12/16/19 22:00 12/23/19 21:25 Lidoderm Patch Removal MC 1 each DAILY@2200 MICHAELA Administration Nadolol 20 mg 12/07/19 10:00 12/23/19 09:31 Corgard - PO 20 mg DAILY MICHAELA Administration Nicotine 7 mg 12/07/19 10:00 12/23/19 09:32 Nicoderm Patch - TD Not Given DAILY MICHAELA Nicotine Polacrilex 2 mg 12/06/19 10:55 Nicorette Gum - BC Q2H PRN NICOTINE REPLACEMENT RX Multivit/Folic Acid/Iron 1 tab 12/07/19 10:00 12/23/19 09:32 Vitamins (Sjr) - PO 1 tab DAILY MICHAELA Administration Pseudoephedrine/Triprolidine 1 combo 12/06/19 10:42 Actifed - PO TID PRN NASAL CONGESTION Quetiapine Fumarate 200 mg 12/17/19 22:00 12/23/19 21:24 Seroquel - PO 200 mg HS MICHAELA Administration Suvorexant 10 mg 12/24/19 22:00 Belsomra PO HS PRN INSOMNIA Tetrahydrozoline HCl 1 drop 12/20/19 14:31 12/23/19 15:15 Visine - OD 1 drop BID PRN Administration DRY EYES Thiamine HCl 100 mg 12/06/19 22:00 12/23/19 21:24 Vitamin B1 - PO 100 mg HS MICHAELA Administration Medication(s) Change(s): Yes. 1) Will d/c Melatonin 5mg HS. 2) Will order Belsomra 10mg HS PRN + Melatonin 10mg HS. Benefits and side effects discussed. Verbal consent given. Current Side Effect: No Lab tests ordered: No Lab tests reviewed: Yes Provider note:: Chart reviewed. Mr. Schrader reports poor sleep. Stated to chief writer that he wakes up intermittently throughout the night. Medications reviewed. Medications changes completed (please review medication change section). Patient also educated on the importance of proper sleep hygiene. Patient satisifed and receptive to feedback. Total face to face time:: 25 Mental Status Exam - Mental Status Exam Alert and Oriented to: Time, Place, Person Cognitive Function: Good Patient Appearance: Well Groomed Mood: Hopeful Affect: Appropriate Patient Behavior: Appropriate, Cooperative Speech Pattern: Appropriate Voice Loudness: Normal Thought Process: Intact, Goal Oriented Thought Disorder: Not Present Hallucinations: Denies Suicidal Ideation: Denies Homicidal Ideation: Denies Insight/Judgement: Poor Sleep: Fair Appetite: Fair Muscle strength/Tone: Normal Gait/Station: Other (Ambulates with a cane,) Psychiatric Treatment Plan - Problem List (1) Alcohol dependence Current Visit: Yes Qualifiers: Substance use status: in withdrawal Complication of substance-induced condition: uncomplicated Qualified Code(s): F10.230 - Alcohol dependence with withdrawal, uncomplicated Comment: . (2) Cannabis dependence, uncomplicated Current Visit: Yes Comment: . (3) Cocaine dependence Current Visit: Yes Qualifiers: Substance use status: in withdrawal Qualified Code(s): F14.23 - Cocaine dependence with withdrawal Comment: . (4) History of posttraumatic stress disorder (PTSD) Current Visit: Yes Comment: .
[2019-12-24] MEDS: PRENATAL VITAMINS W/ FOLIC ACID TABLET (FP) PO SCH (10:21)
[2019-12-24] MEDS: NADOLOL 20 MG TABLET (FP) PO SCH (10:22)
[2019-12-24] MEDS: LACOSAMIDE 50 MG TABLET PO SCH ×2 (10:22→21:37)
[2019-12-24] MEDS: levETIRAcetam 500 MG TABLET (FP) PO SCH ×2 (10:22→21:34)
[2019-12-24] MEDS: NICOTINE 7 MG/24 HOURS TOPICAL PATCH TD SCH (10:22)
[2019-12-24] MEDS: LIDOCAINE 5% TOPICAL PATCH TP SCH (10:22)
[2019-12-24] MEDS: GABAPENTIN 400 MG CAPSULE PO SCH (10:22)
[2019-12-24] MEDS: amLODIPine BESYLATE 5 MG TABLET (FP) PO SCH (10:23)
[2019-12-24] MEDS: BUDESONIDE/FORMETEROL FUMARATE 160/4.5 mcg INHALER IH SCH ×2 (10:25→21:34)
[2019-12-24] MEDS ORDERED: PT OWN MED DRAWER 7, Y5N ONE (10:31)
[2019-12-24] MEDS: MELATONIN 5 MG TABLETS PO SCH (21:35)
[2019-12-24] MEDS: LIDOCAINE PATCH REMOVAL MC SCH (21:35)
[2019-12-24] MEDS: METHYL SALICYLATE/MENTHOL OINT 30 GM TUBE TP SCH (21:35)
[2019-12-24] MEDS: QUEtiapine FUMARATE 200 MG TABLET PO SCH (21:36)
[2019-12-24] MEDS: SUVOREXANT 10 MG TABLET PO PRN (21:37)
[2019-12-24] MEDS: THIAMINE HCL 100 MG TABLET (FP) PO SCH (21:38)
[2019-12-25] MEDS: IBUPROFEN 600 MG TABLET (FP) PO PRN ×2 (04:49→13:03)
[2019-12-25] MEDS: HYDROCORTISONE 1% TOPICAL OINT 30 GM TUBE TP SCH ×4 (06:42→21:35)
[2019-12-25] MEDS: LACOSAMIDE 50 MG TABLET PO SCH ×2 (09:23→21:36)
[2019-12-25] MEDS: NADOLOL 20 MG TABLET (FP) PO SCH (09:23)
[2019-12-25] MEDS: LIDOCAINE 5% TOPICAL PATCH TP SCH (09:23)
[2019-12-25] MEDS: BUDESONIDE/FORMETEROL FUMARATE 160/4.5 mcg INHALER IH SCH ×2 (09:23→21:38)
[2019-12-25] MEDS: NICOTINE 7 MG/24 HOURS TOPICAL PATCH TD SCH (09:23)
[2019-12-25] MEDS: PRENATAL VITAMINS W/ FOLIC ACID TABLET (FP) PO SCH (09:23)
[2019-12-25] MEDS: GABAPENTIN 400 MG CAPSULE PO SCH (09:23)
[2019-12-25] MEDS: levETIRAcetam 500 MG TABLET (FP) PO SCH ×2 (09:23→21:35)
[2019-12-25] MEDS: amLODIPine BESYLATE 5 MG TABLET (FP) PO SCH (09:23)
[2019-12-25] MEDS ORDERED: PT OWN MED DRAWER 7, Y5N ONE ×2 (10:46→19:39)
[2019-12-25] MEDS: SUVOREXANT 10 MG TABLET PO PRN (21:34)
[2019-12-25] MEDS: METHYL SALICYLATE/MENTHOL OINT 30 GM TUBE TP SCH (21:35)
[2019-12-25] MEDS: LIDOCAINE PATCH REMOVAL MC SCH (21:36)
[2019-12-25] MEDS: MELATONIN 5 MG TABLETS PO SCH (21:36)
[2019-12-25] MEDS: TETRAHYDROZOLINE HCL EYE DROPS OD PRN (21:37)
[2019-12-25] MEDS: THIAMINE HCL 100 MG TABLET (FP) PO SCH (21:37)
[2019-12-25] MEDS: hydrOXYzine PAMOATE 25 MG CAPSULE (FP) PO PRN (21:38)
[2019-12-25] MEDS: QUEtiapine FUMARATE 200 MG TABLET PO SCH (21:38)
[2019-12-26] MEDS: HYDROCORTISONE 1% TOPICAL OINT 30 GM TUBE TP SCH ×3 (06:24→21:27)
[2019-12-26] MEDS: GABAPENTIN 400 MG CAPSULE PO SCH (09:50)
[2019-12-26] MEDS: amLODIPine BESYLATE 5 MG TABLET (FP) PO SCH (09:50)
[2019-12-26] MEDS: levETIRAcetam 500 MG TABLET (FP) PO SCH ×2 (09:50→21:26)
[2019-12-26] MEDS: LACOSAMIDE 50 MG TABLET PO SCH ×2 (09:50→21:26)
[2019-12-26] MEDS: NADOLOL 20 MG TABLET (FP) PO SCH (09:51)
[2019-12-26] MEDS: LIDOCAINE 5% TOPICAL PATCH TP SCH (09:51)
[2019-12-26] MEDS: NICOTINE 7 MG/24 HOURS TOPICAL PATCH TD SCH (09:52)
[2019-12-26] MEDS: PRENATAL VITAMINS W/ FOLIC ACID TABLET (FP) PO SCH (09:52)
[2019-12-26] MEDS: BUDESONIDE/FORMETEROL FUMARATE 160/4.5 mcg INHALER IH SCH ×2 (09:53→21:26)
[2019-12-26] MEDS: TETRAHYDROZOLINE HCL EYE DROPS OD PRN (21:26)
[2019-12-26] MEDS: THIAMINE HCL 100 MG TABLET (FP) PO SCH (21:26)
[2019-12-26] MEDS: QUEtiapine FUMARATE 200 MG TABLET PO SCH (21:26)
[2019-12-26] MEDS: LIDOCAINE PATCH REMOVAL MC SCH (21:27)
[2019-12-26] MEDS: MELATONIN 5 MG TABLETS PO SCH (21:27)
[2019-12-26] MEDS: METHYL SALICYLATE/MENTHOL OINT 30 GM TUBE TP SCH (21:27)
[2019-12-27] MEDS: HYDROCORTISONE 1% TOPICAL OINT 30 GM TUBE TP SCH ×3 (06:53→21:23)
[2019-12-27] MEDS: BUDESONIDE/FORMETEROL FUMARATE 160/4.5 mcg INHALER IH SCH ×2 (10:09→21:23)
[2019-12-27] MEDS: NADOLOL 20 MG TABLET (FP) PO SCH (10:10)
[2019-12-27] MEDS: GABAPENTIN 400 MG CAPSULE PO SCH (10:10)
[2019-12-27] MEDS: amLODIPine BESYLATE 5 MG TABLET (FP) PO SCH (10:10)
[2019-12-27] MEDS: LACOSAMIDE 50 MG TABLET PO SCH ×2 (10:10→21:22)
[2019-12-27] MEDS: hydrOXYzine PAMOATE 25 MG CAPSULE (FP) PO PRN (10:10)
[2019-12-27] MEDS: levETIRAcetam 500 MG TABLET (FP) PO SCH ×2 (10:10→21:21)
[2019-12-27] MEDS: PRENATAL VITAMINS W/ FOLIC ACID TABLET (FP) PO SCH (10:10)
[2019-12-27] MEDS: NICOTINE 7 MG/24 HOURS TOPICAL PATCH TD SCH (10:10)
[2019-12-27] MEDS: LIDOCAINE 5% TOPICAL PATCH TP SCH (10:10)
--- NOTE | 2019-12-27 11:34 | PN ---
[facility] Progress Note Note: Vital Signs Temperature 97.5 F L 12/27/19 08:20 Pulse Rate 70 12/27/19 08:20 Respiratory Rate 18 12/27/19 08:20 Blood Pressure 132/88 12/27/19 08:20 O2 Sat by Pulse Oximetry (%) 95 12/27/19 06:00 Laboratory Tests 12/09/19 08:00 Levetiracetam 36.0 Patient became upset after conversation with counselor Hola Gasca and became tremulous and weak. Patient did not have a seizure and did not lose consciousness. He reported to provider that he received a message from his Neurologist in which MD recommended patient to have an EEG either at home or in hospital post discharge. Patient prefers to have test at home and states counselor recommended he should have test in hospital. This recommendation made patient upset and he became shaky and weak. Patient assisted to chair/wheelchair by staff. Safety maintained. Patient's neurological status remained unchanged. Assisted back to bed to rest.
[2019-12-27] MEDS: IBUPROFEN 600 MG TABLET (FP) PO PRN (11:38)
[2019-12-27] MEDS: TETRAHYDROZOLINE HCL EYE DROPS OD PRN (14:04)
[2019-12-27] MEDS ORDERED: PT OWN MED DRAWER 7, Y5N ONE (14:07)
[2019-12-27] MEDS: LIDOCAINE PATCH REMOVAL MC SCH (21:21)
[2019-12-27] MEDS: THIAMINE HCL 100 MG TABLET (FP) PO SCH (21:21)
[2019-12-27] MEDS: MELATONIN 5 MG TABLETS PO SCH (21:21)
[2019-12-27] MEDS: QUEtiapine FUMARATE 200 MG TABLET PO SCH (21:21)
[2019-12-27] MEDS: SUVOREXANT 10 MG TABLET PO PRN (21:23)
[2019-12-27] MEDS: METHYL SALICYLATE/MENTHOL OINT 30 GM TUBE TP SCH (21:23)
--- NOTE | 2019-12-28 04:50 | PN ---
[facility] Progress Note Note: SEEN FOR WITNESSED SEIZURE LIKE ACTIVITY BY RN. BARKSDALE. SHE REPORTS RESPONDING TO NOISE IN CLIENT ROOM INCLUDING GROANING. UPON ARRIVAL SHE NOTED CLIENT WITH JERKING MOVEMENT THAT LASTED A FEW SECONDS. SHE STATES PATIENT WAS ALERT RIGHT AFTER AND VERBALLY RESPONSIVE. UPON ARRIVAL. CLIENT NOTED RESTING IN BED COMFORTABLY, AROUSABLE WITH VERBAL STIMULI. ALERT, ORIENTED X3, SPEECH IS CLEAR, CONTINUES TO STATES HE IS TIRED. DOES NOT RECALL HAVING SEIZURE LIKE ACTIVITY. STATES LAST EPISODE HE RECALLS WAS YESTERDAY DURING THE DAY. DENIES VISUAL DISTURBANCES, HEADACHE, PAIN, N/V, WEAKNESS. Vital Signs - 8 hr 12/28/19 12/28/19 04:57 06:15 Temperature 98.9 F 97.5 F L Pulse Rate 53 L 62 Respiratory 20 18 Rate Blood Pressure 128/73 133/81 O2 Sat by Pulse 98 98 Oximetry (%) NCAT PERRLA MOUTH- MMM, INTACT NO INJURY, EXTREMITIES- FROM, STRENGTH 5/5 X4 . A- S/P SEIZURE-CLIENT WITH HX/O MULTIPLE SHORT LIVED SEIZURE LIKE ACTIVITY NOTED SINCE ADMISSION. SEIZURE MEDS RECENTLY ADJUSTED. HIS NEUROLOGIST HAS BEEN CONSULTED. CLIENT IS WAITING A BED TRANSFER TO [facility] FOR PENDING EEG. P-SEIZURE/ FALL PRECAUTION CONT TO MONITOR CLOSELY
[2019-12-28] MEDS: HYDROCORTISONE 1% TOPICAL OINT 30 GM TUBE TP SCH ×3 (06:43→21:16)
[2019-12-28] MEDS: NADOLOL 20 MG TABLET (FP) PO SCH (09:48)
[2019-12-28] MEDS: LACOSAMIDE 50 MG TABLET PO SCH ×2 (09:48→21:15)
[2019-12-28] MEDS: levETIRAcetam 500 MG TABLET (FP) PO SCH ×2 (09:48→21:14)
[2019-12-28] MEDS: PRENATAL VITAMINS W/ FOLIC ACID TABLET (FP) PO SCH (09:48)
[2019-12-28] MEDS: NICOTINE 7 MG/24 HOURS TOPICAL PATCH TD SCH (09:49)
[2019-12-28] MEDS: BUDESONIDE/FORMETEROL FUMARATE 160/4.5 mcg INHALER IH SCH ×2 (09:49→21:16)
[2019-12-28] MEDS: LIDOCAINE 5% TOPICAL PATCH TP SCH (09:49)
[2019-12-28] MEDS: amLODIPine BESYLATE 5 MG TABLET (FP) PO SCH (09:49)
[2019-12-28] MEDS: GABAPENTIN 400 MG CAPSULE PO SCH (09:49)
--- NOTE | 2019-12-28 13:52 | PN ---
S Progress Note Note: Pt was seen this morning on the hallway making phone call. This commercial loan underwriter spoke to counselor Sydni Leos who updated that pt wants to be discharged home and follow up with his Epileptologist. As per Sydni Leos, No appointment date was indicated yet by Dr. Chandra's office because no bed is available yet. Vital Signs - 24 hr 12/27/19 12/27/19 12/28/19 15:09 20:20 04:57 Temperature 98.2 F 98.9 F Pulse Rate 53 L Respiratory 20 Rate Blood Pressure 128/73 O2 Sat by Pulse 98 98 98 Oximetry (%) 12/28/19 12/28/19 12/28/19 06:15 10:01 14:44 Temperature 97.5 F L 97 F L Pulse Rate 62 79 Respiratory 18 18 Rate Blood Pressure 133/81 128/80 O2 Sat by Pulse 98 98 Oximetry (%) Alert o x 3 nad, no resp difficulty oob ambulating with steady gait, uses cane. Maintain safety re-evaluate pt's status in the morning for possible discharge if medically stable.
[2019-12-28] MEDS: IBUPROFEN 600 MG TABLET (FP) PO PRN (13:55)
[2019-12-28] MEDS: QUEtiapine FUMARATE 200 MG TABLET PO SCH (21:14)
[2019-12-28] MEDS: THIAMINE HCL 100 MG TABLET (FP) PO SCH (21:14)
[2019-12-28] MEDS: MELATONIN 5 MG TABLETS PO SCH (21:14)
[2019-12-28] MEDS: LIDOCAINE PATCH REMOVAL MC SCH (21:14)
[2019-12-28] MEDS: SUVOREXANT 10 MG TABLET PO PRN (21:15)
[2019-12-28] MEDS: METHYL SALICYLATE/MENTHOL OINT 30 GM TUBE TP SCH (21:16)
[2019-12-29] MEDS: HYDROCORTISONE 1% TOPICAL OINT 30 GM TUBE TP SCH (06:10)
[2019-12-29 07:04] VITALS: BP 121/79; PULSE 59; TEMP 97.9
--- NOTE | 2019-12-29 08:57 | DS ---
[facility] Rehab Discharge Summary - [facility] Rehab Discharge Summary Admission Date: 12/06/19 Discharge Date: 12/29/19 - History Pertinent Past History: 58 year old male with history of alcohol dependence with withdrawals, longest period of sobriety 6 years, last here in 12/31-01/12/19 completed detox but left rehab early and then relapsed thereafter. He stopped using heroin but alcohol is his main problem. Cocaine use disorder, cannabis use disorder. PMH: HTN, COPD, Asthma Psurg: Spinal Surgery 2009 secondary to osteomyelitis Psych: Depression and Anxiety Neuro: Seizure disorder. Living in apartment with on SSI - Discharge Physical Exam Vital Signs: Vital Signs Temperature 97.9 F 12/29/19 06:06 Pulse Rate 59 L 12/29/19 06:06 Respiratory Rate 18 12/29/19 06:06 Blood Pressure 121/79 12/29/19 06:06 O2 Sat by Pulse Oximetry (%) 100 12/29/19 06:06 Pertinent Admission Physical Exam Findings: Physical General Appearance: no apparent distress HEENTM: EOMI, Normocephalic, Respiratory: No Respiratory Distress, No Accessory Muscle Use Neck: Supple, Cardiology: Regular Rhythm & Rate, Abdominal: +Bowel Sounds, Non Tender, Flat, Soft Musculoskeletal: full range of Motion, Gait Steady 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 adult day program. He has an appointment with his neurologist on 01/18/20.) Hospital Course: patient attended groups, had 1:1 with his counselor. He was adherent to his medication regimen and treatment plan. He experienced seizures during his stay in rehab. His neurologist was notified and his medication adjusted. - Medication Discharge Medications: Ambulatory Orders Amlodipine Besylate [Norvasc -] 5 mg PO DAILY #30 tablet 01/04/19 Budesonide/Formeterol Fumarate [SYMBICORT 160/4.5mcg -] 2 puff IH BID #1 inhaler 01/04/19 Nadolol [Corgard -] 20 mg PO DAILY #30 tablet 01/04/19 Fluticasone Prop 0.05% Nasal [Flonase -] 1 spray NS DAILY 12/02/19 Gabapentin [Neurontin -] 800 mg PO PRN 12/02/19 Ketotifen Fumarate [Itchy Eye] 1 drop OP BID 12/02/19 Lacosamide [Vimpat -] 50 mg PO BID 12/02/19 Omeprazole 20 mg PO DAILY 12/02/19 levETIRAcetam [Keppra -] 2,000 tab PO BID 12/02/19 - Medication-Assisted Treatment (MAT) Medication-Assisted Treatment (MAT): No - Discharge Instructions Diet, activity, other medical instructions: Diet: as tolerated Activity: as tolerated Other medical instructions: Please follow up with aftercare referral, take seizure medications as prescribed, and keep appointment with your neurologist. - Diagnosis (1) Alcohol dependence Current Visit: Yes Status: Chronic Qualifiers: Substance use status: in withdrawal Complication of substance-induced condition: uncomplicated Qualified Code(s): F10.230 - Alcohol dependence with withdrawal, uncomplicated (2) Cannabis dependence, uncomplicated Current Visit: Yes Status: Chronic (3) Cocaine dependence Current Visit: Yes Status: Chronic Qualifiers: Substance use status: in withdrawal Qualified Code(s): F14.23 - Cocaine dependence with withdrawal (4) Seizure Current Visit: No Status: Chronic - Follow-up Referral Minutes to complete discharge: 20 - AMA Did Patient Leave Against Medical Advice: No Additional Comments: The original plan was for Mr. Schrader to go to [facility] for an in- patient EEG to evaluate his seizure disorder. However, Mr. Schrader prefers to go home and follow up with an outpatient appointment with his neurologist.
[2019-12-29] MEDS: BUDESONIDE/FORMETEROL FUMARATE 160/4.5 mcg INHALER IH SCH (09:00)
[2019-12-29] MEDS: levETIRAcetam 500 MG TABLET (FP) PO SCH (09:03)
[2019-12-29] MEDS: LACOSAMIDE 50 MG TABLET PO SCH (09:03)
[2019-12-29] MEDS: NADOLOL 20 MG TABLET (FP) PO SCH (09:03)
[2019-12-29] MEDS: GABAPENTIN 400 MG CAPSULE PO SCH (09:03)
[2019-12-29] MEDS: NICOTINE 7 MG/24 HOURS TOPICAL PATCH TD SCH (09:04)
[2019-12-29] MEDS: amLODIPine BESYLATE 5 MG TABLET (FP) PO SCH (09:04)
[2019-12-29] MEDS: PRENATAL VITAMINS W/ FOLIC ACID TABLET (FP) PO SCH (09:04)
[2019-12-29] MEDS: LIDOCAINE 5% TOPICAL PATCH TP SCH (09:04)
== END 2019-12-29 10:10 | disposition home or self-care (01) | DRG 772 ==
LOC: YASAS 11:16 → Y3W 11:17
PROVIDERS: ADMIT Allergy & Immunology; ATTEND Allergy & Immunology
PROC: HZ42ZZZ Group Counseling for Substance Abuse Treatment, Cognitive-Behavioral (ICD-10-PCS; principal; 2019-12-06)
DX: F10.20 Alcohol dependence, uncomplicated (principal); F14.20 Cocaine dependence, uncomplicated; F12.20 Cannabis dependence, uncomplicated; F17.211 Nicotine dependence, cigarettes, in remission; F41.9 Anxiety disorder, unspecified; F32.9 Major depressive disorder, single episode, unspecified; F43.10 Post-traumatic stress disorder, unspecified; G40.909 Epilepsy, unspecified, not intractable, without status epilepticus; I10 Essential (primary) hypertension; J44.9 Chronic obstructive pulmonary disease, unspecified; J45.998 Other asthma; Z91.410 Personal history of adult physical and sexual abuse; Z98.890 Other specified postprocedural states; Z99.89 Dependence on other enabling machines and devices; Z91.011 Allergy to milk products
CPT/HCPCS: 36415; 80177

== ENCOUNTER 2019-12-10 19:56 | Emergency (ER) | payer OTHER ==
[2019-12-10 20:04] VITALS: TEMP 97; BMI 23.2
--- NOTE | 2019-12-10 21:09 | PDOC ---
History of Present Illness - General Chief Complaint: Seizure Stated Complaint: SEIZURE Time Seen by Provider: 12/10/19 20:24 History Source: Patient, Old Records Exam Limitations: No Limitations - History of Present Illness Initial Comments: 12/10/19 21:08 Ren Schrader is a 59M with PMH epilepsy, EtOH/cocaine use disorder, HTN, sent from [facility] for second seizure in rehab. Patient at [facility] for EtOH detox, last EtOH on 11/29/19, has already completed Librium course. Takes daily 1500mg Keppra and 50mg Vimpat, has been taking it daily without issue. Today was watching TV in a chair and speaking to other patients when he blacked out, next thing he knows he was on the floor, had tongue biting and loss of urinary continence. Per chart review event lasted ~5 seconds. Had a seizure yesterday, neurologist Dr. Chandra contacted and recommended he stay in [facility] and do not change dose. Per records, had seizure yesterday as well. Past History - Medical History Allergies/Adverse Reactions: Allergies Allergy/AdvReac Type Severity Reaction Status Date / Time Milk Containing Products Allergy Intermediate Swelling Verified 12/10/19 20:04 No Known Drug Allergies Allergy Verified 12/10/19 20:04 Home Medications: Ambulatory Orders Amlodipine Besylate [Norvasc -] 5 mg PO DAILY #30 tablet 01/04/19 Budesonide/Formeterol Fumarate [SYMBICORT 160/4.5mcg -] 2 puff IH BID #1 inhaler 01/04/19 Nadolol [Corgard -] 20 mg PO DAILY #30 tablet 01/04/19 Fluticasone Prop 0.05% Nasal [Flonase -] 1 spray NS DAILY 12/02/19 Gabapentin [Neurontin -] 800 mg PO PRN 12/02/19 Ketotifen Fumarate [Itchy Eye] 1 drop OP BID 12/02/19 Lacosamide [Vimpat -] 50 mg PO BID 12/02/19 Omeprazole 20 mg PO DAILY 12/02/19 levETIRAcetam [Keppra -] 2,000 tab PO BID 12/02/19 Anemia: No Asthma: Yes Cancer: No Cardiac Disorders: No CVA: No COPD: No CHF: No Dementia: No Diabetes: No GI Disorders: No Disorders: No HTN: Yes Hypercholesterolemia: No Kidney Stones: No Liver Disease: No Seizures: Yes (last seizure 1 month ago on Keppra) Thyroid Disease: No - Surgical History Abdominal Surgery: No Appendectomy: No Cardiac Surgery: No Cholecystectomy: No Lung Surgery: No Neurologic Surgery: No Orthopedic Surgery: Yes (spine surgery to correct injury in 2009) - Reproductive History Testicular Surgery: No - Psycho-Social/Smoking History Smoking History: Former smoker Have you smoked in the past 12 months: No Number of Cigarettes Smoked Daily: 15 If you are a former smoker, when did you quit?: 2012 Information on smoking cessation initiated: No 'Breaking Loose' booklet given: 12/31/18 - Substance Abuse Hx (Audit-C & DAST Scrn) How often the patient has a drink containing alcohol: 4 0r more times/wk Score: In Men: 4 or > Positive; In Women: 3 or > Positive: 4 Screen Result (Pos requires Nsg. Audit-10AR): Positive Review of Systems - Review of Systems Able to Perform ROS?: Yes Constitutional: No: Symptoms Reported HEENTM: No: Symptoms Reported Respiratory: No: Symptoms reported Cardiac (ROS): No: Symptoms Reported ABD/GI: No: Symptoms Reported : Yes: Incontinence Musculoskeletal: No: Symptoms Reported Integumentary: No: Symptoms Reported 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: Yes: Seizure Endocrine: No: Symptoms Reported Hematologic/Lymphatic: No: Symptoms Reported All Other Systems: Reviewed and Negative *Physical Exam - Vital Signs Last Vital Signs Temp Pulse Resp BP Pulse Ox 97 F L 63 18 121/76 98 12/10/19 20:02 12/10/19 20:02 12/10/19 20:02 12/10/19 20:02 12/10/19 20:02 - Physical Exam General Appearance: Yes: Nourished, Appropriately Dressed. No: Apparent Distress HEENT: positive: EOMI, DENIS, Normal Voice, Symmetrical, TMs Normal, Pharynx Normal. negative: Scleral Icterus (R), Scleral Icterus (L), Pharyngeal Erythema, Tonsillar Exudate, Tonsillar Erythema Neck: positive: Trachea midline, Normal Thyroid, Supple. negative: Tender, Rigid, Lymphadenopathy (R), Lymphadenopathy (L) Respiratory/Chest: positive: Lungs Clear, Normal Breath Sounds. negative: Chest Tender, Respiratory Distress, Accessory Muscle Use, Crackles, Rales, Rhonchi, Stridor, Wheezing Cardiovascular: positive: Regular Rhythm, Regular Rate Gastrointestinal/Abdominal: positive: Normal Bowel Sounds, Flat, Soft. negative: Tender, Organomegaly, Pulsatile Mass, Guarding, Rebound Musculoskeletal: positive: Normal Inspection. negative: CVA Tenderness, Decreased Range of Motion Extremity: positive: Normal Capillary Refill, Normal Inspection, Normal Range of Motion, Pelvis Stable. negative: Tender Integumentary: positive: Normal Color, Dry, Warm Neurologic: positive: hardboard grinder II-XII NML intact, Fully Oriented, Alert, Normal Mood/Affect, Normal Response, Motor Strength 5/5. negative: Facial Droop, Numbness, Sensory Deficit ED Treatment Course - LABORATORY CBC & Chemistry Diagram: 12/10/19 21:00 12/10/19 21:00 - RADIOLOGY Radiology Studies Ordered: Category Date Time Status CHEST X-RAY PORTABLE* [RAD] Stat Radiology 12/10/19 20:48 Ordered Medical Decision Making - Medical Decision Making 12/10/19 21:33 Patient presents with more seizure activity for the last few days, has known history of epilepsy and EtOH withdrawal seizures. Discussed case with Dr. Butler real estate acquisition analyst for Dr. Chandra. Recommends increasing either Keppra to 2000mg BID or Vimpat to 75AM/50PM. Will increase Keppra to 2000BID. Giving 2000mg Keppra and 50mg Vimpat for tonight's dose. CT head possible chronic right orbit fracture, no acute intracranial abnormality. CT C-spine no acute fracture, C3-C4 stenosis. Labs notable for: - CBC WNL, MCV 103 but Hgb stable - CMP WNL - UA WNL - Keppra pending ECG broad mild ST elevations but consistent with priors, HR 86, QTc 430. CXR unremarkable, grossly unchanged from prior 7 days ago. Stable for discharge back to [facility] for rehab. Will update medications and neuro recommendations. 12/11/19 00:03 Attempted to contact [facility] regarding change in dose, no response after trying 3 times. Discharge - Discharge Information Problems reviewed: Yes Clinical Impression/Diagnosis: Seizure Condition: Improved Disposition: HALF-WAY FACILITY - Admission No - Follow up/Referral - Patient Discharge Instructions Patient Printed Discharge Instructions: DI for Seizure Disorder -- Adult Additional Instructions: Today you were evaluated for seizures despite taking your medications. Your labs show no problems. Your CT scans do not show any bleeding or other issues that could cause your seizures. We spoke to Dr. Butler real estate acquisition analyst for Dr. Chandra, recommends increasing your Keppra from 1500mg twice a day to 2000mg twice per day, and continue to take the Vimpat at 50mg twice a day. Try and get some sleep, as sleeping issues can trigger seizures as well. If you experience more seizures, chest pain, difficulty breathing, or any other new or concerning symptoms, please return to the emergency room. - Post Discharge Activity
[2019-12-10 21:14] LABS: BASO % 1.7 % (0-2.0); EOS % 2.8 % (0-4.5); HEMATOCRIT 41.1 % (35.4-49); LYMPH % 39.2 % (8-40); MCH 35.2 pg (25.7-33.7); MCHC 34.2 g/dl (32.0-35.9); MEAN PLT VOLUME 9.1 fl (7.5-11.1); MONO % 8.3 % (3.8-10.2); PLATELET COUNT 127 K/MM3 (134-434); RBC 3.99 M/mm3 (4.00-5.60); RDW 12.7 % (11.9-15.9); WHITE BLOOD COUNT 6.3 K/mm3 (4.0-10.0)
[2019-12-10 21:41] LABS: ALBUMIN 3.7 g/dl (3.4-5.0); BILIRUBIN,TOTAL 0.4 mg/dL (0.2-1); CALCIUM 8.9 mg/dL (8.5-10.1); MAGNESIUM 2.3 mg/dL (1.8-2.4); POTASSIUM 4.6 mmol/L (3.5-5.1); TOT PROT 7.6 g/dl (6.4-8.2)
[2019-12-10] MEDS ORDERED: levETIRAcetam 500 MG TABLET (FP) PO ONE ×2 (21:54→22:41)
[2019-12-10] MEDS ORDERED: LACOSAMIDE 50 MG TABLET PO ONE ×2 (21:55→22:41)
[2019-12-10 22:23] LABS: PH,URINE >= 9.0 (5.0-8.0); URINE APPEARANCE CLEAR; URINE BILIRUBIN NEGATIVE (NEGATIVE); URINE COLOR YELLOW; URINE GLUCOSE (UA) NEGATIVE (NEGATIVE); URINE KETONE NEGATIVE (NEGATIVE); URINE LEUK ESTERASE NEGATIVE (NEGATIVE); URINE NITRITE NEGATIVE (NEGATIVE); URINE PROTEIN NEGATIVE (NEGATIVE); URINE UROBILINOGEN 0.2 mg/dL (0.2-1.0)
--- NOTE | 2019-12-10 23:22 | PDOC ---
Documentation entered by Skyler Estrada SCRIBE, acting as scribe for Talib Black MD. Talib Black MD: This documentation has been prepared by the Natalie ghotra Xhesika, SCRIBE, under my direction and personally reviewed by me in its entirety. I confirm that the documentation accurately reflects all work, treatment, procedures, and medical decision making performed by me. Attending Attestation - Resident Resident Name: SupaWong - ED Attending Attestation I have performed the following: I have examined & evaluated the patient, The case was reviewed & discussed with the resident, I agree w/resident's findings & plan, Exceptions are as noted - HPI HPI: 12/10/19 21:13 The patient is a 59y/o M with a pmh of seizures (complaint with 1500mg Keppra and 50mg Vimpat), EtOH/cocaine/marijuana use disorder, HTN, and COPD who presents to the the ED BIBA from [facility] s/p multiple seizures while in rehab. Pt states he was in a chair speaking to other patient at [facility] when he blacked out, was on the floor, endorsed tongue biting and loss of urinary continence. Per [facility] note the event lasted ~15 seconds. Unclear if he struck his head. Per [facility], pt received Ativan TITRATOR. Pt is at [facility] for EtOh detox, last used EtoH on 11/29/19, has already completed Librium course. Pt report he had another seizure yesterday while in bed. Denies recent fevers, chills, headache, cp, sob, abd pain, NVD, urinary sxs, back pain. Denies pain or injury at this time and feels at baseline. Of note, pt had recent increase addition of vimpat to his daily regimen 2/2 breakthrough seizures. He follows with a neurolgoist at [facility]. He denies any etoh or drug use over the last 12 days. Allergies: NKDA Neurology: @ [facility] - Physicial Exam PE: 12/10/19 23:09 Agree with resident exam - Medical Decision Making 12/10/19 23:09 59yo M presents to the ED with breakthrough seizure He reports compliance with his medications including keppra and vimpat Denies recent infectious sxs such as f/c, N/V. Denies recent drug or etoh use and has completed detox. Does report poor sleep [facility] Possible breakthrough seizure 2/2 poor sleep Plan to check labs to r/o metabolic abnormalities as cause of seizure Will obtian CTH/CT c-spine given fall from chair while having seizure Case discussed with pts neurologist at [facility] by Dr. Cowart - recommends increasing dose of Keppra (see Dr. Cowart note for details) Will give first increased dose here in the ED - pt only took morning doses this morning Will reassess Heart Score/ECG Review #1 12/10/19 23:22Twelve-lead EKG was performed and reviewed by me. Sinus bradycardia, rate 55. Normal axis and intervals. Diffuse J-point elevation in inferior septal and lateral leads. When compared to previous EKG, no significant changes. Discharge - Discharge Information Problems reviewed: Yes Clinical Impression/Diagnosis: Seizure - Follow up/Referral - Patient Discharge Instructions - Post Discharge Activity
[2019-12-11 01:28] VITALS: BP 138/87; PULSE 78
--- NOTE | 2019-12-13 11:35 | EKG ---
Test Reason : Blood Pressure : / mmHG Vent. Rate : 055 BPM Atrial Rate : 055 BPM P-R Int : 194 ms QRS Dur : 086 ms QT Int : 420 ms P-R-T Axes : 075 070 067 degrees QTc Int : [address] ELEVATION, CONSIDER EARLY REPOLARIZATION, PERICARDITIS, OR INJURY ABNORMAL ECG WHEN COMPARED WITH ECG OF 31-DEC-2018 22:53, NO SIGNIFICANT CHANGE WAS FOUND Confirmed by ADALID FRANKLIN, CHIQUITA ([id number]) on 12/13/2019 11:34:24 AM Referred By: Confirmed By:CHIQUITA CORDOBA MD
--- NOTE | 2019-12-17 16:51 | PN ---
Psychiatric Progress Note Date of Session: 12/17/19 Chief Complaint:: " I am concerned about my discharge plan." HPI: Day 12 of rehabilitation treatment. Psychiatric follow-up has been requested by the medical providers for assessment of this patient's mental status + exploration of psychiatric needs in view of his imminent discharge to the community. According to staff's reports, it appears that Mr Schrader has been moderately dysphoric, morose and apprehensive in the past few days. ROS: Patient is ambulatory (walks with cane), alert and fully oriented, cooperative. No somatic complaints offered.
== END 2019-12-11 01:20 ==
LOC: JER 19:56
DX: R56.9 Unspecified convulsions (principal)
CPT/HCPCS: 36415; 70450-TC; 71045-TC-FY; 72125-TC; 80053; 80177; 81003; 83735; 85025; 87086; 93005; 93010; 99285-25

== ENCOUNTER 2020-05-31 19:51 | Inpatient (IN) | payer OTHER ==
[2020-05-31] MEDS ORDERED: MENTHOL/PHENOL 1 EACH UD MM PRN (22:46)
[2020-05-31] MEDS ORDERED: IBUPROFEN 400 MG TABLET (FP) PO PRN (22:46)
[2020-05-31] MEDS ORDERED: METHOCARBAMOL 500 MG TABLET PO PRN (22:46)
[2020-05-31] MEDS ORDERED: MAGNESIUM CITRATE 300 ML BOTTLE PO PRN (22:46)
[2020-05-31] MEDS ORDERED: hydrOXYzine PAMOATE 25 MG CAPSULE (FP) PO PRN (22:46)
[2020-05-31] MEDS ORDERED: MAG HYDROX/AL HYDROX/SIMETH 30 ML UNIT-DOSE CUP PO PRN (22:46)
[2020-05-31] MEDS ORDERED: MAGNESIUM HYDROX 2400MG/30ML ORAL SUSPENSION 30 ML CUP PO PRN (22:46)
[2020-05-31] MEDS ORDERED: BISMUTH SUBSALICYLATE 524 MG/30 ML UD PO PRN (22:46)
[2020-05-31] MEDS ORDERED: ACETAMINOPHEN 325 MG TABLET (FP) PO PRN ×2 (22:46)
[2020-05-31] MEDS ORDERED: ONDANSETRON *ODT* 4 MG TABLET SL PRN (22:46)
[2020-05-31] MEDS ORDERED: chlordiazePOXIDE HCL 25 MG CAPSULE PO PRN (22:49)
[2020-05-31 23:40] VITALS: BMI 20.9
[2020-06-01] MEDS: chlordiazePOXIDE HCL 25 MG CAPSULE PO SCH ×5 (02:39→22:22)
[2020-06-01] MEDS: PRENATAL VITAMINS W/ FOLIC ACID TABLET (FP) PO SCH (10:33)
[2020-06-01] MEDS ORDERED: ALBUTEROL SO4 HFA INHALER IH PRN (10:58)
[2020-06-01] MEDS: BUDESONIDE/FORMETEROL FUMARATE 160/4.5 mcg INHALER IH SCH ×2 (12:13→22:22)
[2020-06-01] MEDS: FAMOTIDINE 20 MG TABLET PO SCH ×2 (12:13→22:22)
[2020-06-01] MEDS: GABAPENTIN 400 MG CAPSULE PO SCH (12:13)
[2020-06-01] MEDS: levETIRAcetam 500 MG TABLET (FP) PO SCH ×2 (12:14→22:21)
[2020-06-01 13:41] LABS: HEMATOCRIT 39.6 % (35.4-49); HEMOGLOBIN 13.4 GM/dL (11.7-16.9); MCH 34.6 pg (25.7-33.7); MCHC 33.8 g/dl (32.0-35.9); MEAN CELL VOLUME 102.6 fl (80-96); MEAN PLT VOLUME 9.7 fl (7.5-11.1); PLATELET COUNT 111 K/MM3 (134-434); RBC 3.86 M/mm3 (4.00-5.60); RDW 12.6 % (11.9-15.9); WHITE BLOOD COUNT 4.8 K/mm3 (4.0-10.0)
[2020-06-01 13:48] LABS: POTASSIUM 3.5 mmol/L (3.5-5.1)
[2020-06-01 14:03] LABS: ALBUMIN 3.7 g/dl (3.4-5.0); BLOOD UREA NITROGEN 15.2 mg/dL (7-18)
[2020-06-01 14:07] LABS: TOT PROT 7.2 g/dl (6.4-8.2)
[2020-06-01 14:08] LABS: BILIRUBIN,TOTAL 1.6 mg/dL (0.2-1); CALCIUM 8.5 mg/dL (8.5-10.1)
[2020-06-01] MEDS: QUEtiapine FUMARATE 100 MG TABLET (FP) PO SCH (22:21)
[2020-06-01] MEDS: THIAMINE HCL 100 MG TABLET (FP) PO SCH (22:22)
[2020-06-01] MEDS: MELATONIN 5 MG TABLETS PO SCH (22:28)
[2020-06-02 07:28] VITALS: TEMP 97.3
[2020-06-02] MEDS: chlordiazePOXIDE HCL 25 MG CAPSULE PO SCH ×4 (07:32→23:38)
[2020-06-02] MEDS ORDERED: NADOLOL 20 MG TABLET (FP) PO SCH (10:00)
[2020-06-02] MEDS ORDERED: amLODIPine BESYLATE 5 MG TABLET (FP) PO SCH (10:00)
[2020-06-02] MEDS: FAMOTIDINE 20 MG TABLET PO SCH ×2 (12:29→23:39)
[2020-06-02] MEDS: GABAPENTIN 400 MG CAPSULE PO SCH (12:29)
[2020-06-02] MEDS: levETIRAcetam 500 MG TABLET (FP) PO SCH ×2 (12:29→23:38)
[2020-06-02] MEDS: BUDESONIDE/FORMETEROL FUMARATE 160/4.5 mcg INHALER IH SCH ×2 (12:30→23:39)
[2020-06-02] MEDS: PRENATAL VITAMINS W/ FOLIC ACID TABLET (FP) PO SCH (12:30)
[2020-06-02 14:44] VITALS: BP 118/74; PULSE 78
[2020-06-02] MEDS: MELATONIN 5 MG TABLETS PO SCH (23:39)
[2020-06-02] MEDS: QUEtiapine FUMARATE 100 MG TABLET (FP) PO SCH (23:39)
[2020-06-02] MEDS: THIAMINE HCL 100 MG TABLET (FP) PO SCH (23:40)
[2020-06-03] MEDS ORDERED: chlordiazePOXIDE HCL 10 MG CAPSULE PO PRN
[2020-06-03] MEDS ORDERED: chlordiazePOXIDE HCL 10 MG CAPSULE PO SCH (05:00)
[2020-06-04] MEDS ORDERED: chlordiazePOXIDE HCL 10 MG CAPSULE PO SCH (05:00)
[2020-06-05] MEDS ORDERED: chlordiazePOXIDE HCL 10 MG CAPSULE PO ONE (05:00)
== END 2020-06-03 00:50 | disposition short-term general hospital (02) | DRG 774 ==
LOC: YASAS 19:51 → Y6N 06-01 01:12
PROVIDERS: ADMIT Allergy & Immunology; ATTEND Allergy & Immunology
PROC: HZ2ZZZZ Detoxification Services for Substance Abuse Treatment (ICD-10-PCS; principal; 2020-06-01)
DX: F10.230 Alcohol dependence with withdrawal, uncomplicated (principal); F14.20 Cocaine dependence, uncomplicated; F12.20 Cannabis dependence, uncomplicated; F19.24 Other psychoactive substance dependence with psychoactive substance-induced mood disorder; F43.10 Post-traumatic stress disorder, unspecified; R55 Syncope and collapse; G40.909 Epilepsy, unspecified, not intractable, without status epilepticus; I10 Essential (primary) hypertension; J44.9 Chronic obstructive pulmonary disease, unspecified; Z62.810 Personal history of physical and sexual abuse in childhood; Z87.891 Personal history of nicotine dependence; Z91.011 Allergy to milk products; Z56.0 Unemployment, unspecified
CPT/HCPCS: 36415; 80053; 82962; 85027; 86780; C9803; Q0162; U0003

== ENCOUNTER 2020-06-02 11:02 | Inpatient (IN) | payer OTHER ==
[2020-06-02 11:27] VITALS: BMI 22.9
[2020-06-02] MEDS ORDERED: levETIRAcetam 500 MG TABLET (FP) PO ONE ×2 (11:56→13:10)
[2020-06-02] MEDS ORDERED: LACOSAMIDE 50 MG TABLET PO ONE ×2 (11:56→13:10)
[2020-06-02] MEDS ORDERED: SODIUM CHLORIDE 0.9% 500 ML INFUS.BAG IV ONE (12:35)
[2020-06-02 13:07] LABS: BASO % 0.4 % (0-2.0); EOS % 2.8 % (0-4.5); HEMATOCRIT 38.3 % (35.4-49); LYMPH % 23.2 % (8-40); MCH 34.6 pg (25.7-33.7); MCHC 33.9 g/dl (32.0-35.9); MEAN PLT VOLUME 9.4 fl (7.5-11.1); MONO % 7.5 % (3.8-10.2); NEUT % 66.1 % (42.8-82.8); PLATELET COUNT 105 K/MM3 (134-434); RBC 3.76 M/mm3 (4.00-5.60); RDW 12.5 % (11.9-15.9); WHITE BLOOD COUNT 8.4 K/mm3 (4.0-10.0)
[2020-06-02 13:29] LABS: CHLORIDE 108 mmol/L (98-107); POTASSIUM 3.7 mmol/L (3.5-5.1); SODIUM 141 mmol/L (136-145)
[2020-06-02 13:31] LABS: CALCIUM 8.8 mg/dL (8.5-10.1)
[2020-06-02 13:32] LABS: ALBUMIN 3.6 g/dl (3.4-5.0); ANION GAP 4 MMOL/L (8-16); BLOOD UREA NITROGEN 8.4 mg/dL (7-18); CO2 29 mmol/L (21-32); GLUCOSE,RANDOM 101 mg/dL (74-106)
[2020-06-02 13:35] LABS: SGOT/AST 15 U/L (15-37); SGPT/ALT 14 U/L (13-61)
[2020-06-02 13:36] LABS: BILIRUBIN,TOTAL 0.8 mg/dL (0.2-1)
[2020-06-02 13:37] LABS: TOT PROT 7.2 g/dl (6.4-8.2)
[2020-06-02 13:38] LABS: ALK PHOS 100 U/L (45-117)
[2020-06-02] MEDS: LACOSAMIDE 50 MG TABLET PO SCH (22:00)
[2020-06-02] MEDS: levETIRAcetam 500 MG TABLET (FP) PO SCH (22:00)
[2020-06-02] MEDS ORDERED: chlordiazePOXIDE HCL 25 MG CAPSULE PO PRN (23:02)
[2020-06-03 07:33] LABS: BASO % 0.2 % (0-2.0); EOS % 6.2 % (0-4.5); HEMATOCRIT 36.9 % (35.4-49); HEMOGLOBIN 12.5 GM/dL (11.7-16.9); LYMPH % 38.3 % (8-40); MCHC 33.9 g/dl (32.0-35.9); MEAN PLT VOLUME 9.5 fl (7.5-11.1); MONO % 9.6 % (3.8-10.2); NEUT % 45.7 % (42.8-82.8); PLATELET COUNT 98 K/MM3 (134-434); RBC 3.59 M/mm3 (4.00-5.60); RDW 12.5 % (11.9-15.9); WHITE BLOOD COUNT 4.9 K/mm3 (4.0-10.0)
[2020-06-03 07:51] LABS: CALCIUM 8.7 mg/dL (8.5-10.1)
[2020-06-03 07:52] LABS: ALBUMIN 3.3 g/dl (3.4-5.0); BLOOD UREA NITROGEN 10.6 mg/dL (7-18); MAGNESIUM 1.9 mg/dL (1.8-2.4)
[2020-06-03 07:55] LABS: BILIRUBIN,TOTAL 0.8 mg/dL (0.2-1); CREATININE 1.1 mg/dL (0.55-1.3); PHOSPHOROUS 2.6 mg/dL (2.5-4.9)
[2020-06-03 07:56] LABS: TOT PROT 6.7 g/dl (6.4-8.2)
[2020-06-03] MEDS: ENOXAPARIN NA (PORCINE) 40 MG/0.4 ML DISP.SYRIN SQ SCH (09:12)
[2020-06-03] MEDS: levETIRAcetam 500 MG TABLET (FP) PO SCH ×2 (09:12→21:46)
[2020-06-03] MEDS: amLODIPine BESYLATE 5 MG TABLET (FP) PO SCH (09:12)
[2020-06-03] MEDS: FOLIC ACID 1 MG TABLET (FP) PO SCH (09:12)
[2020-06-03] MEDS: LACOSAMIDE 50 MG TABLET PO SCH ×2 (09:12→21:47)
[2020-06-03] MEDS: THIAMINE HCL 100 MG TABLET (FP) PO SCH (09:12)
[2020-06-03 12:47] LABS: PH,URINE 8.5 (5.0-8.0); URINE APPEARANCE CLEAR; URINE BILIRUBIN NEGATIVE (NEGATIVE); URINE COLOR YELLOW; URINE GLUCOSE (UA) NEGATIVE (NEGATIVE); URINE KETONE NEGATIVE (NEGATIVE); URINE LEUK ESTERASE NEGATIVE (NEGATIVE); URINE NITRITE NEGATIVE (NEGATIVE); URINE PROTEIN NEGATIVE (NEGATIVE)
[2020-06-03 12:54] LABS: URINE BARBITURATES NEGATIVE ng/ml (CUTOFF=200)
[2020-06-03 12:55] LABS: COCAINE, UR NEGATIVE ng/ml (CUTOFF=300); METHADONE, UR NEGATIVE ng/ml (CUTOFF=300); OPIATES, URI NEGATIVE ng/ml (CUTOFF=300)
[2020-06-03 12:56] LABS: PHENCYCLIDINE,URINE NEGATIVE ng/ml (CUTOFF=25)
[2020-06-03 13:13] LABS: URINE AMPHETAMINES NEGATIVE ng/ml (CUTOFF=500)
[2020-06-03 13:17] LABS: URINE BENZODIAZEPINES POSITIVE ng/ml (CUTOFF=200)
[2020-06-03] MEDS ORDERED: chlordiazePOXIDE HCL 10 MG CAPSULE PO PRN (15:54)
[2020-06-03] MEDS ORDERED: diphenhydrAMINE HCL 25 MG CAPSULE (FP) PO SCH (20:00)
[2020-06-03] MEDS ORDERED: MELATONIN 5 MG TABLETS PO PRN (20:00)
[2020-06-04] MEDS ORDERED: chlordiazePOXIDE HCL 25 MG CAPSULE PO SCH (05:00)
[2020-06-04] MEDS: THIAMINE HCL 100 MG TABLET (FP) PO SCH (09:03)
[2020-06-04] MEDS: levETIRAcetam 500 MG TABLET (FP) PO SCH (09:03)
[2020-06-04] MEDS: LACOSAMIDE 50 MG TABLET PO SCH (09:03)
[2020-06-04] MEDS: amLODIPine BESYLATE 5 MG TABLET (FP) PO SCH (09:03)
[2020-06-04] MEDS: FOLIC ACID 1 MG TABLET (FP) PO SCH (09:03)
[2020-06-04] MEDS: ENOXAPARIN NA (PORCINE) 40 MG/0.4 ML DISP.SYRIN SQ SCH (09:03)
[2020-06-04 16:11] VITALS: BP 126/84; PULSE 87; TEMP 98.2
[2020-06-05] MEDS ORDERED: chlordiazePOXIDE HCL 10 MG CAPSULE PO PRN
[2020-06-05] MEDS ORDERED: chlordiazePOXIDE HCL 10 MG CAPSULE PO SCH (05:00)
[2020-06-06] MEDS ORDERED: chlordiazePOXIDE HCL 10 MG CAPSULE PO SCH (05:00)
[2020-06-07] MEDS ORDERED: chlordiazePOXIDE HCL 10 MG CAPSULE PO ONE (05:00)
== END 2020-06-04 16:19 | disposition other institution (70) | DRG 204 ==
LOC: JER 11:02 → JERBED 12:27 → OBSVTOIN 17:36 → J4W 21:32
PROVIDERS: ADMIT Internal Medicine; ATTEND Internal Medicine
DX: R55 Syncope and collapse (principal); R56.9 Unspecified convulsions; J44.9 Chronic obstructive pulmonary disease, unspecified; Z91.14 Patient's other noncompliance with medication regimen; F32.9 Major depressive disorder, single episode, unspecified; F41.9 Anxiety disorder, unspecified; F10.10 Alcohol abuse, uncomplicated; F14.10 Cocaine abuse, uncomplicated; F10.130 Alcohol abuse with withdrawal, uncomplicated; I25.10 Atherosclerotic heart disease of native coronary artery without angina pectoris; T42.4X5A Adverse effect of benzodiazepines, initial encounter
CPT/HCPCS: 36415; 70450-TC; 71045-TC-FY; 80053; 80177; 80307; 81003; 82140; 82550; 83605; 83735; 84100; 84484; 85025; 87086; 93005; 93010; 99285-25; C9803; G0378; U0003

== ENCOUNTER 2020-06-04 16:11 | Inpatient (IN) | payer OTHER ==
[2020-06-04 16:59] VITALS: BMI 22.6
[2020-06-04] MEDS ORDERED: ACETAMINOPHEN 325 MG TABLET (FP) PO PRN (17:26)
[2020-06-04] MEDS ORDERED: NICOTINE POLACRILEX 2 MG GUM BC PRN (17:26)
[2020-06-04] MEDS ORDERED: MAG HYDROX/AL HYDROX/SIMETH 30 ML UNIT-DOSE CUP PO PRN (17:26)
[2020-06-04] MEDS ORDERED: guaiFENesin 200 MG/10 ML 10 ML UNIT-DOSE CUPS PO PRN (17:26)
[2020-06-04] MEDS ORDERED: LOPERAMIDE HCL 2 MG CAPSULE PO PRN (17:26)
[2020-06-04] MEDS ORDERED: MAGNESIUM CITRATE 300 ML BOTTLE PO PRN (17:26)
[2020-06-04] MEDS ORDERED: P-EPHED 60MG/TRIPROLIDI 2.5MG TABLET PO PRN (17:26)
[2020-06-04] MEDS ORDERED: MAGNESIUM HYDROX 2400MG/30ML ORAL SUSPENSION 30 ML CUP PO PRN (17:26)
[2020-06-04] MEDS ORDERED: ALBUTEROL SO4 HFA INHALER IH PRN (18:20)
[2020-06-04] MEDS: MELATONIN 5 MG TABLETS PO SCH (21:37)
[2020-06-04] MEDS: THIAMINE HCL 100 MG TABLET (FP) PO SCH (21:37)
[2020-06-04] MEDS: LACOSAMIDE 50 MG TABLET PO SCH (21:37)
[2020-06-04] MEDS: levETIRAcetam 500 MG TABLET (FP) PO SCH (21:37)
[2020-06-04] MEDS: BUDESONIDE/FORMETEROL FUMARATE 160/4.5 mcg INHALER IH SCH (21:38)
[2020-06-05] MEDS ORDERED: KETOTIFEN FUMARATE OP SCH (10:00)
[2020-06-05] MEDS ORDERED: NADOLOL 20 MG TABLET (FP) PO SCH (10:00)
[2020-06-05] MEDS: levETIRAcetam 500 MG TABLET (FP) PO SCH ×3 (10:18→22:12)
[2020-06-05] MEDS: PANTOPRAZOLE 20 MG TABLET PO SCH (10:18)
[2020-06-05] MEDS: amLODIPine BESYLATE 5 MG TABLET (FP) PO SCH (10:18)
[2020-06-05] MEDS: LACOSAMIDE 50 MG TABLET PO SCH ×2 (10:18→22:07)
[2020-06-05] MEDS: PRENATAL VITAMINS W/ FOLIC ACID TABLET (FP) PO SCH (10:18)
[2020-06-05] MEDS: BUDESONIDE/FORMETEROL FUMARATE 160/4.5 mcg INHALER IH SCH ×2 (10:19→22:12)
[2020-06-05 10:41] LABS: HEMATOCRIT 40.6 % (35.4-49); MCH 35.2 pg (25.7-33.7); MCHC 34.4 g/dl (32.0-35.9); MEAN CELL VOLUME 102.2 fl (80-96); MEAN PLT VOLUME 9.6 fl (7.5-11.1); PLATELET COUNT 130 K/MM3 (134-434); RBC 3.97 M/mm3 (4.00-5.60); RDW 12.5 % (11.9-15.9); WHITE BLOOD COUNT 4.9 K/mm3 (4.0-10.0)
[2020-06-05 10:51] LABS: BLOOD UREA NITROGEN 12.5 mg/dL (7-18)
[2020-06-05 10:55] LABS: BILIRUBIN,TOTAL 0.5 mg/dL (0.2-1)
[2020-06-05 10:56] LABS: TOT PROT 8.3 g/dl (6.4-8.2)
[2020-06-05 11:04] LABS: CALCIUM 9.5 mg/dL (8.5-10.1)
[2020-06-05 11:43] LABS: HIV INTERPRETATION NEGATIVE (NEGATIVE)
[2020-06-05] MEDS: FLUTICASONE PROP 0.05% 16 GM NASAL SPRAY NS SCH (15:52)
[2020-06-05 16:51] LABS: URINE APPEARANCE CLEAR; URINE BILIRUBIN NEGATIVE (NEGATIVE); URINE COLOR YELLOW; URINE GLUCOSE (UA) NEGATIVE (NEGATIVE); URINE KETONE NEGATIVE (NEGATIVE); URINE LEUK ESTERASE NEGATIVE (NEGATIVE); URINE NITRITE NEGATIVE (NEGATIVE); URINE PROTEIN NEGATIVE (NEGATIVE); URINE UROBILINOGEN 0.2 mg/dL (0.2-1.0)
[2020-06-05] MEDS ORDERED: NAPHAZOLINE 0.1% OPHTHALMIC SOLUTION 15 ML BOTTLE OU SCH (18:00)
[2020-06-05] MEDS: THIAMINE HCL 100 MG TABLET (FP) PO SCH (22:07)
[2020-06-05] MEDS: MELATONIN 5 MG TABLETS PO SCH (22:07)
[2020-06-05] MEDS: QUEtiapine FUMARATE 50 MG TABLET PO SCH (22:08)
[2020-06-05] MEDS: NAPHAZOLINE/PHENIRAMINE OPHTHALMIC 15 ML BOTTLE OU SCH (22:09)
[2020-06-06] MEDS: PRENATAL VITAMINS W/ FOLIC ACID TABLET (FP) PO SCH (10:45)
[2020-06-06] MEDS: PANTOPRAZOLE 20 MG TABLET PO SCH (10:45)
[2020-06-06] MEDS: LACOSAMIDE 50 MG TABLET PO SCH ×2 (10:46→21:36)
[2020-06-06] MEDS: IBUPROFEN 400 MG TABLET (FP) PO PRN (10:46)
[2020-06-06] MEDS: amLODIPine BESYLATE 5 MG TABLET (FP) PO SCH (10:46)
[2020-06-06] MEDS: levETIRAcetam 500 MG TABLET (FP) PO SCH ×2 (10:46→21:36)
[2020-06-06] MEDS: NAPHAZOLINE/PHENIRAMINE OPHTHALMIC 15 ML BOTTLE OU SCH ×2 (10:52→21:39)
[2020-06-06] MEDS: BUDESONIDE/FORMETEROL FUMARATE 160/4.5 mcg INHALER IH SCH ×2 (10:53→21:38)
[2020-06-06] MEDS: GABAPENTIN 400 MG CAPSULE PO SCH (11:50)
[2020-06-06] MEDS: FLUTICASONE PROP 0.05% 16 GM NASAL SPRAY NS SCH (11:57)
[2020-06-06] MEDS ORDERED: LACTULOSE 20 GM/30 ML UDC (FOR ORAL USE ONLY) PO SCH (20:15)
[2020-06-06] MEDS: QUEtiapine FUMARATE 50 MG TABLET PO SCH (21:37)
[2020-06-06] MEDS: MELATONIN 5 MG TABLETS PO SCH (21:37)
[2020-06-06] MEDS: THIAMINE HCL 100 MG TABLET (FP) PO SCH (21:37)
[2020-06-07] MEDS: LACOSAMIDE 50 MG TABLET PO SCH ×2 (10:10→21:12)
[2020-06-07] MEDS: BUDESONIDE/FORMETEROL FUMARATE 160/4.5 mcg INHALER IH SCH ×2 (10:10→21:12)
[2020-06-07] MEDS: PANTOPRAZOLE 20 MG TABLET PO SCH (10:10)
[2020-06-07] MEDS: PRENATAL VITAMINS W/ FOLIC ACID TABLET (FP) PO SCH (10:10)
[2020-06-07] MEDS: GABAPENTIN 400 MG CAPSULE PO SCH (10:11)
[2020-06-07] MEDS: FLUTICASONE PROP 0.05% 16 GM NASAL SPRAY NS SCH (10:11)
[2020-06-07] MEDS: levETIRAcetam 500 MG TABLET (FP) PO SCH ×2 (10:11→21:11)
[2020-06-07] MEDS: amLODIPine BESYLATE 5 MG TABLET (FP) PO SCH (10:11)
[2020-06-07] MEDS: NAPHAZOLINE/PHENIRAMINE OPHTHALMIC 15 ML BOTTLE OU SCH ×2 (10:12→21:12)
[2020-06-07] MEDS: LACTULOSE 20 GM/30 ML UDC (FOR ORAL USE ONLY) PO SCH ×3 (10:26→21:10)
[2020-06-07] MEDS: THIAMINE HCL 100 MG TABLET (FP) PO SCH (21:10)
[2020-06-07] MEDS: MELATONIN 5 MG TABLETS PO SCH (21:10)
[2020-06-07] MEDS: QUEtiapine FUMARATE 50 MG TABLET PO SCH (21:11)
[2020-06-08] MEDS: LACTULOSE 20 GM/30 ML UDC (FOR ORAL USE ONLY) PO SCH ×3 (06:44→21:26)
[2020-06-08] MEDS: NAPHAZOLINE/PHENIRAMINE OPHTHALMIC 15 ML BOTTLE OU SCH ×2 (10:05→21:29)
[2020-06-08] MEDS: FLUTICASONE PROP 0.05% 16 GM NASAL SPRAY NS SCH (10:05)
[2020-06-08] MEDS: GABAPENTIN 400 MG CAPSULE PO SCH (10:05)
[2020-06-08] MEDS: BUDESONIDE/FORMETEROL FUMARATE 160/4.5 mcg INHALER IH SCH ×2 (10:05→21:29)
[2020-06-08] MEDS: PRENATAL VITAMINS W/ FOLIC ACID TABLET (FP) PO SCH (10:05)
[2020-06-08] MEDS: PANTOPRAZOLE 20 MG TABLET PO SCH (10:05)
[2020-06-08] MEDS: LACOSAMIDE 50 MG TABLET PO SCH ×2 (10:05→21:27)
[2020-06-08] MEDS: levETIRAcetam 500 MG TABLET (FP) PO SCH ×2 (10:06→21:26)
[2020-06-08] MEDS: amLODIPine BESYLATE 5 MG TABLET (FP) PO SCH (10:06)
[2020-06-08] MEDS: THIAMINE HCL 100 MG TABLET (FP) PO SCH (21:26)
[2020-06-08] MEDS: MELATONIN 5 MG TABLETS PO SCH (21:26)
[2020-06-08] MEDS: QUEtiapine FUMARATE 50 MG TABLET PO SCH (21:26)
[2020-06-09] MEDS: LACTULOSE 20 GM/30 ML UDC (FOR ORAL USE ONLY) PO SCH ×3 (06:20→21:21)
[2020-06-09] MEDS: PRENATAL VITAMINS W/ FOLIC ACID TABLET (FP) PO SCH (10:37)
[2020-06-09] MEDS: amLODIPine BESYLATE 5 MG TABLET (FP) PO SCH (10:38)
[2020-06-09] MEDS: LACOSAMIDE 50 MG TABLET PO SCH ×2 (10:38→21:21)
[2020-06-09] MEDS: levETIRAcetam 500 MG TABLET (FP) PO SCH ×2 (10:38→21:21)
[2020-06-09] MEDS: FLUTICASONE PROP 0.05% 16 GM NASAL SPRAY NS SCH (10:38)
[2020-06-09] MEDS: BUDESONIDE/FORMETEROL FUMARATE 160/4.5 mcg INHALER IH SCH ×2 (10:38→23:04)
[2020-06-09] MEDS: GABAPENTIN 400 MG CAPSULE PO SCH (10:38)
[2020-06-09] MEDS: PANTOPRAZOLE 20 MG TABLET PO SCH (10:38)
[2020-06-09] MEDS: NAPHAZOLINE/PHENIRAMINE OPHTHALMIC 15 ML BOTTLE OU SCH ×2 (10:40→23:04)
[2020-06-09] MEDS: THIAMINE HCL 100 MG TABLET (FP) PO SCH (21:21)
[2020-06-09] MEDS: MELATONIN 5 MG TABLETS PO SCH (21:22)
[2020-06-09] MEDS: QUEtiapine FUMARATE 50 MG TABLET PO SCH (21:22)
[2020-06-09] MEDS: LIDOCAINE PATCH REMOVAL MC SCH (23:04)
[2020-06-10] MEDS: LACTULOSE 20 GM/30 ML UDC (FOR ORAL USE ONLY) PO SCH ×3 (06:41→21:30)
[2020-06-10] MEDS: amLODIPine BESYLATE 5 MG TABLET (FP) PO SCH (10:15)
[2020-06-10] MEDS: PANTOPRAZOLE 20 MG TABLET PO SCH (10:15)
[2020-06-10] MEDS: levETIRAcetam 500 MG TABLET (FP) PO SCH ×2 (10:15→21:31)
[2020-06-10] MEDS: LACOSAMIDE 50 MG TABLET PO SCH ×2 (10:15→21:31)
[2020-06-10] MEDS: GABAPENTIN 400 MG CAPSULE PO SCH (10:15)
[2020-06-10] MEDS: BUDESONIDE/FORMETEROL FUMARATE 160/4.5 mcg INHALER IH SCH ×2 (10:16→21:33)
[2020-06-10] MEDS: PRENATAL VITAMINS W/ FOLIC ACID TABLET (FP) PO SCH (10:16)
[2020-06-10] MEDS: FLUTICASONE PROP 0.05% 16 GM NASAL SPRAY NS SCH (10:17)
[2020-06-10] MEDS: NAPHAZOLINE/PHENIRAMINE OPHTHALMIC 15 ML BOTTLE OU SCH ×2 (10:17→22:22)
[2020-06-10] MEDS: LIDOCAINE 5% TOPICAL PATCH TP SCH (10:17)
[2020-06-10] MEDS: THIAMINE HCL 100 MG TABLET (FP) PO SCH (21:31)
[2020-06-10] MEDS: QUEtiapine FUMARATE 50 MG TABLET PO SCH (21:31)
[2020-06-10] MEDS: MELATONIN 5 MG TABLETS PO SCH (21:31)
[2020-06-10] MEDS: LIDOCAINE PATCH REMOVAL MC SCH (21:33)
[2020-06-11] MEDS: LACTULOSE 20 GM/30 ML UDC (FOR ORAL USE ONLY) PO SCH ×3 (06:34→21:16)
[2020-06-11] MEDS: BUDESONIDE/FORMETEROL FUMARATE 160/4.5 mcg INHALER IH SCH ×2 (10:25→21:20)
[2020-06-11] MEDS: PRENATAL VITAMINS W/ FOLIC ACID TABLET (FP) PO SCH (10:25)
[2020-06-11] MEDS: LACOSAMIDE 50 MG TABLET PO SCH ×2 (10:25→23:26)
[2020-06-11] MEDS: levETIRAcetam 500 MG TABLET (FP) PO SCH ×2 (10:25→21:19)
[2020-06-11] MEDS: FLUTICASONE PROP 0.05% 16 GM NASAL SPRAY NS SCH (10:25)
[2020-06-11] MEDS: GABAPENTIN 400 MG CAPSULE PO SCH (10:26)
[2020-06-11] MEDS: LIDOCAINE 5% TOPICAL PATCH TP SCH (10:26)
[2020-06-11] MEDS: PANTOPRAZOLE 20 MG TABLET PO SCH (10:26)
[2020-06-11] MEDS: NAPHAZOLINE/PHENIRAMINE OPHTHALMIC 15 ML BOTTLE OU SCH ×2 (10:26→21:20)
[2020-06-11] MEDS: amLODIPine BESYLATE 5 MG TABLET (FP) PO SCH (10:26)
[2020-06-11] MEDS: MELATONIN 5 MG TABLETS PO SCH (21:19)
[2020-06-11] MEDS: THIAMINE HCL 100 MG TABLET (FP) PO SCH (21:19)
[2020-06-11] MEDS: QUEtiapine FUMARATE 50 MG TABLET PO SCH (21:19)
[2020-06-11] MEDS: LIDOCAINE PATCH REMOVAL MC SCH (21:20)
[2020-06-12] MEDS: LACTULOSE 20 GM/30 ML UDC (FOR ORAL USE ONLY) PO SCH ×3 (06:20→21:23)
[2020-06-12] MEDS: PRENATAL VITAMINS W/ FOLIC ACID TABLET (FP) PO SCH (10:23)
[2020-06-12] MEDS: PANTOPRAZOLE 20 MG TABLET PO SCH (10:23)
[2020-06-12] MEDS: FLUTICASONE PROP 0.05% 16 GM NASAL SPRAY NS SCH (10:23)
[2020-06-12] MEDS: amLODIPine BESYLATE 5 MG TABLET (FP) PO SCH (10:23)
[2020-06-12] MEDS: GABAPENTIN 400 MG CAPSULE PO SCH (10:23)
[2020-06-12] MEDS: levETIRAcetam 500 MG TABLET (FP) PO SCH ×2 (10:23→21:24)
[2020-06-12] MEDS: BUDESONIDE/FORMETEROL FUMARATE 160/4.5 mcg INHALER IH SCH ×2 (10:24→21:25)
[2020-06-12] MEDS: LIDOCAINE 5% TOPICAL PATCH TP SCH (10:25)
[2020-06-12] MEDS: NAPHAZOLINE/PHENIRAMINE OPHTHALMIC 15 ML BOTTLE OU SCH ×2 (11:00→21:24)
[2020-06-12] MEDS: THIAMINE HCL 100 MG TABLET (FP) PO SCH (21:23)
[2020-06-12] MEDS: MELATONIN 5 MG TABLETS PO SCH (21:23)
[2020-06-12] MEDS: QUEtiapine FUMARATE 50 MG TABLET PO SCH (21:24)
[2020-06-12] MEDS: LACOSAMIDE 50 MG TABLET PO SCH (21:25)
[2020-06-12] MEDS: LIDOCAINE PATCH REMOVAL MC SCH (21:25)
[2020-06-13] MEDS: LACTULOSE 20 GM/30 ML UDC (FOR ORAL USE ONLY) PO SCH ×4 (06:17→21:21)
[2020-06-13] MEDS: levETIRAcetam 500 MG TABLET (FP) PO SCH ×2 (10:18→21:21)
[2020-06-13] MEDS: PRENATAL VITAMINS W/ FOLIC ACID TABLET (FP) PO SCH (10:18)
[2020-06-13] MEDS: amLODIPine BESYLATE 5 MG TABLET (FP) PO SCH (10:19)
[2020-06-13] MEDS: LIDOCAINE 5% TOPICAL PATCH TP SCH (10:19)
[2020-06-13] MEDS: LACOSAMIDE 50 MG TABLET PO SCH ×2 (10:19→21:21)
[2020-06-13] MEDS: PANTOPRAZOLE 20 MG TABLET PO SCH (10:19)
[2020-06-13] MEDS: GABAPENTIN 400 MG CAPSULE PO SCH (10:19)
[2020-06-13] MEDS: FLUTICASONE PROP 0.05% 16 GM NASAL SPRAY NS SCH (10:21)
[2020-06-13] MEDS: NAPHAZOLINE/PHENIRAMINE OPHTHALMIC 15 ML BOTTLE OU SCH ×2 (10:21→21:24)
[2020-06-13] MEDS: BUDESONIDE/FORMETEROL FUMARATE 160/4.5 mcg INHALER IH SCH ×2 (10:22→21:25)
[2020-06-13] MEDS: MELATONIN 5 MG TABLETS PO SCH (21:21)
[2020-06-13] MEDS: QUEtiapine FUMARATE 50 MG TABLET PO SCH (21:21)
[2020-06-13] MEDS: THIAMINE HCL 100 MG TABLET (FP) PO SCH (21:21)
[2020-06-13] MEDS: LIDOCAINE PATCH REMOVAL MC SCH (21:49)
[2020-06-14] MEDS: LACTULOSE 20 GM/30 ML UDC (FOR ORAL USE ONLY) PO SCH ×3 (06:09→21:37)
[2020-06-14] MEDS: IBUPROFEN 400 MG TABLET (FP) PO PRN ×2 (06:57→15:45)
[2020-06-14] MEDS: PRENATAL VITAMINS W/ FOLIC ACID TABLET (FP) PO SCH (10:28)
[2020-06-14] MEDS: amLODIPine BESYLATE 5 MG TABLET (FP) PO SCH (10:29)
[2020-06-14] MEDS: levETIRAcetam 500 MG TABLET (FP) PO SCH ×2 (10:29→21:37)
[2020-06-14] MEDS: LACOSAMIDE 50 MG TABLET PO SCH ×2 (10:29→21:36)
[2020-06-14] MEDS: GABAPENTIN 400 MG CAPSULE PO SCH (10:29)
[2020-06-14] MEDS: PANTOPRAZOLE 20 MG TABLET PO SCH (10:29)
[2020-06-14] MEDS: NAPHAZOLINE/PHENIRAMINE OPHTHALMIC 15 ML BOTTLE OU SCH ×2 (10:30→21:58)
[2020-06-14] MEDS: FLUTICASONE PROP 0.05% 16 GM NASAL SPRAY NS SCH (10:30)
[2020-06-14] MEDS: BUDESONIDE/FORMETEROL FUMARATE 160/4.5 mcg INHALER IH SCH ×2 (10:30→21:58)
[2020-06-14] MEDS: LIDOCAINE 5% TOPICAL PATCH TP SCH (10:30)
[2020-06-14] MEDS ORDERED: AMMONIUM LACTATE 12% LOTION 225 GM BOTTLE TP PRN (13:19)
[2020-06-14] MEDS: QUEtiapine FUMARATE 50 MG TABLET PO SCH (21:37)
[2020-06-14] MEDS: LIDOCAINE PATCH REMOVAL MC SCH (21:38)
[2020-06-14] MEDS: COLLOIDAL OATMEAL 1 BAR EACH TP PRN (21:38)
[2020-06-14] MEDS: MELATONIN 5 MG TABLETS PO SCH (21:38)
[2020-06-14] MEDS: THIAMINE HCL 100 MG TABLET (FP) PO SCH (21:38)
[2020-06-15] MEDS: LACTULOSE 20 GM/30 ML UDC (FOR ORAL USE ONLY) PO SCH ×3 (05:53→21:24)
[2020-06-15] MEDS: IBUPROFEN 400 MG TABLET (FP) PO PRN ×2 (07:23→18:59)
[2020-06-15] MEDS: NAPHAZOLINE/PHENIRAMINE OPHTHALMIC 15 ML BOTTLE OU SCH ×2 (10:12→21:24)
[2020-06-15] MEDS: FLUTICASONE PROP 0.05% 16 GM NASAL SPRAY NS SCH (10:12)
[2020-06-15] MEDS: BUDESONIDE/FORMETEROL FUMARATE 160/4.5 mcg INHALER IH SCH ×2 (10:12→21:25)
[2020-06-15] MEDS: PRENATAL VITAMINS W/ FOLIC ACID TABLET (FP) PO SCH (10:13)
[2020-06-15] MEDS: PANTOPRAZOLE 20 MG TABLET PO SCH (10:13)
[2020-06-15] MEDS: LACOSAMIDE 50 MG TABLET PO SCH ×2 (10:13→21:25)
[2020-06-15] MEDS: GABAPENTIN 400 MG CAPSULE PO SCH (10:13)
[2020-06-15] MEDS: amLODIPine BESYLATE 5 MG TABLET (FP) PO SCH (10:13)
[2020-06-15] MEDS: levETIRAcetam 500 MG TABLET (FP) PO SCH ×2 (10:13→21:24)
[2020-06-15] MEDS: LIDOCAINE 5% TOPICAL PATCH TP SCH (10:13)
[2020-06-15] MEDS: THIAMINE HCL 100 MG TABLET (FP) PO SCH (21:24)
[2020-06-15] MEDS: MELATONIN 5 MG TABLETS PO SCH (21:24)
[2020-06-15] MEDS: QUEtiapine FUMARATE 50 MG TABLET PO SCH (21:24)
[2020-06-15] MEDS: LIDOCAINE PATCH REMOVAL MC SCH (21:25)
[2020-06-16] MEDS: LACTULOSE 20 GM/30 ML UDC (FOR ORAL USE ONLY) PO SCH ×3 (05:56→21:03)
[2020-06-16] MEDS: LACOSAMIDE 50 MG TABLET PO SCH ×2 (10:15→21:05)
[2020-06-16] MEDS: PRENATAL VITAMINS W/ FOLIC ACID TABLET (FP) PO SCH (10:15)
[2020-06-16] MEDS: PANTOPRAZOLE 20 MG TABLET PO SCH (10:16)
[2020-06-16] MEDS: IBUPROFEN 400 MG TABLET (FP) PO PRN (10:16)
[2020-06-16] MEDS: GABAPENTIN 400 MG CAPSULE PO SCH (10:16)
[2020-06-16] MEDS: amLODIPine BESYLATE 5 MG TABLET (FP) PO SCH (10:16)
[2020-06-16] MEDS: NAPHAZOLINE/PHENIRAMINE OPHTHALMIC 15 ML BOTTLE OU SCH ×2 (10:17→21:04)
[2020-06-16] MEDS: FLUTICASONE PROP 0.05% 16 GM NASAL SPRAY NS SCH (10:17)
[2020-06-16] MEDS: BUDESONIDE/FORMETEROL FUMARATE 160/4.5 mcg INHALER IH SCH ×2 (10:17→21:05)
[2020-06-16] MEDS: levETIRAcetam 500 MG TABLET (FP) PO SCH ×2 (10:17→21:03)
[2020-06-16] MEDS: LIDOCAINE 5% TOPICAL PATCH TP SCH (10:19)
[2020-06-16] MEDS: QUEtiapine FUMARATE 50 MG TABLET PO SCH (21:03)
[2020-06-16] MEDS: THIAMINE HCL 100 MG TABLET (FP) PO SCH (21:03)
[2020-06-16] MEDS: MELATONIN 5 MG TABLETS PO SCH (21:03)
[2020-06-16] MEDS: traZODone HCL 50 MG TABLET (FP) PO SCH (21:04)
[2020-06-16] MEDS: LIDOCAINE PATCH REMOVAL MC SCH (21:05)
[2020-06-17] MEDS: LACTULOSE 20 GM/30 ML UDC (FOR ORAL USE ONLY) PO SCH ×3 (06:18→21:29)
[2020-06-17] MEDS: IBUPROFEN 400 MG TABLET (FP) PO PRN ×2 (07:16→14:03)
[2020-06-17] MEDS: PRENATAL VITAMINS W/ FOLIC ACID TABLET (FP) PO SCH (09:52)
[2020-06-17] MEDS: BUDESONIDE/FORMETEROL FUMARATE 160/4.5 mcg INHALER IH SCH ×2 (09:52→21:32)
[2020-06-17] MEDS: amLODIPine BESYLATE 5 MG TABLET (FP) PO SCH (09:53)
[2020-06-17] MEDS: LIDOCAINE 5% TOPICAL PATCH TP SCH (09:53)
[2020-06-17] MEDS: LACOSAMIDE 50 MG TABLET PO SCH ×2 (09:53→21:31)
[2020-06-17] MEDS: FLUTICASONE PROP 0.05% 16 GM NASAL SPRAY NS SCH (09:53)
[2020-06-17] MEDS: GABAPENTIN 400 MG CAPSULE PO SCH (09:53)
[2020-06-17] MEDS: PANTOPRAZOLE 20 MG TABLET PO SCH (09:53)
[2020-06-17] MEDS: levETIRAcetam 500 MG TABLET (FP) PO SCH ×2 (09:53→21:29)
[2020-06-17] MEDS: NAPHAZOLINE/PHENIRAMINE OPHTHALMIC 15 ML BOTTLE OU SCH ×2 (09:54→21:30)
[2020-06-17] MEDS: QUEtiapine FUMARATE 50 MG TABLET PO SCH (21:29)
[2020-06-17] MEDS: traZODone HCL 50 MG TABLET (FP) PO SCH (21:30)
[2020-06-17] MEDS: MELATONIN 5 MG TABLETS PO SCH (21:30)
[2020-06-17] MEDS: THIAMINE HCL 100 MG TABLET (FP) PO SCH (21:30)
[2020-06-17] MEDS: LIDOCAINE PATCH REMOVAL MC SCH (21:32)
[2020-06-18] MEDS: LACTULOSE 20 GM/30 ML UDC (FOR ORAL USE ONLY) PO SCH ×3 (06:14→21:29)
[2020-06-18] MEDS: IBUPROFEN 400 MG TABLET (FP) PO PRN ×2 (06:14→18:23)
[2020-06-18] MEDS: LACOSAMIDE 50 MG TABLET PO SCH ×2 (09:49→21:31)
[2020-06-18] MEDS: BUDESONIDE/FORMETEROL FUMARATE 160/4.5 mcg INHALER IH SCH ×2 (09:49→21:33)
[2020-06-18] MEDS: PRENATAL VITAMINS W/ FOLIC ACID TABLET (FP) PO SCH (09:49)
[2020-06-18] MEDS: NAPHAZOLINE/PHENIRAMINE OPHTHALMIC 15 ML BOTTLE OU SCH ×2 (09:49→21:32)
[2020-06-18] MEDS: GABAPENTIN 400 MG CAPSULE PO SCH (09:50)
[2020-06-18] MEDS: FLUTICASONE PROP 0.05% 16 GM NASAL SPRAY NS SCH (09:50)
[2020-06-18] MEDS: levETIRAcetam 500 MG TABLET (FP) PO SCH ×2 (09:50→21:30)
[2020-06-18] MEDS: amLODIPine BESYLATE 5 MG TABLET (FP) PO SCH (09:50)
[2020-06-18] MEDS: PANTOPRAZOLE 20 MG TABLET PO SCH (09:50)
[2020-06-18] MEDS: LIDOCAINE 5% TOPICAL PATCH TP SCH (09:50)
[2020-06-18] MEDS: traZODone HCL 50 MG TABLET (FP) PO SCH (21:30)
[2020-06-18] MEDS: THIAMINE HCL 100 MG TABLET (FP) PO SCH (21:30)
[2020-06-18] MEDS: MELATONIN 5 MG TABLETS PO SCH (21:30)
[2020-06-18] MEDS: QUEtiapine FUMARATE 50 MG TABLET PO SCH (21:30)
[2020-06-18] MEDS: LIDOCAINE PATCH REMOVAL MC SCH (21:31)
[2020-06-19] MEDS: IBUPROFEN 400 MG TABLET (FP) PO PRN ×2 (05:55→16:38)
[2020-06-19] MEDS: LACTULOSE 20 GM/30 ML UDC (FOR ORAL USE ONLY) PO SCH ×3 (05:55→21:22)
[2020-06-19] MEDS: levETIRAcetam 500 MG TABLET (FP) PO SCH ×2 (10:28→21:21)
[2020-06-19] MEDS: GABAPENTIN 400 MG CAPSULE PO SCH (10:28)
[2020-06-19] MEDS: amLODIPine BESYLATE 5 MG TABLET (FP) PO SCH (10:28)
[2020-06-19] MEDS: PANTOPRAZOLE 20 MG TABLET PO SCH (10:29)
[2020-06-19] MEDS: PRENATAL VITAMINS W/ FOLIC ACID TABLET (FP) PO SCH (10:29)
[2020-06-19] MEDS: LACOSAMIDE 50 MG TABLET PO SCH ×2 (10:30→21:20)
[2020-06-19] MEDS: NAPHAZOLINE/PHENIRAMINE OPHTHALMIC 15 ML BOTTLE OU SCH ×2 (10:32→21:24)
[2020-06-19] MEDS: BUDESONIDE/FORMETEROL FUMARATE 160/4.5 mcg INHALER IH SCH ×2 (10:32→21:24)
[2020-06-19] MEDS: FLUTICASONE PROP 0.05% 16 GM NASAL SPRAY NS SCH (10:32)
[2020-06-19] MEDS: LIDOCAINE 5% TOPICAL PATCH TP SCH (10:33)
[2020-06-19] MEDS: COLLOIDAL OATMEAL 1 BAR EACH TP PRN (10:34)
[2020-06-19] MEDS: QUEtiapine FUMARATE 50 MG TABLET PO SCH (21:21)
[2020-06-19] MEDS: MELATONIN 5 MG TABLETS PO SCH (21:21)
[2020-06-19] MEDS: THIAMINE HCL 100 MG TABLET (FP) PO SCH (21:21)
[2020-06-19] MEDS: traZODone HCL 50 MG TABLET (FP) PO SCH (21:22)
[2020-06-19] MEDS ORDERED: PT OWN MED DRAWER 7, Y5N ONE (21:23)
[2020-06-19] MEDS: LIDOCAINE PATCH REMOVAL MC SCH (21:24)
[2020-06-20] MEDS: LACTULOSE 20 GM/30 ML UDC (FOR ORAL USE ONLY) PO SCH (06:05)
[2020-06-20] MEDS: IBUPROFEN 400 MG TABLET (FP) PO PRN (06:05)
[2020-06-20] MEDS: PRENATAL VITAMINS W/ FOLIC ACID TABLET (FP) PO SCH (09:05)
[2020-06-20] MEDS: NAPHAZOLINE/PHENIRAMINE OPHTHALMIC 15 ML BOTTLE OU SCH (09:05)
[2020-06-20] MEDS: BUDESONIDE/FORMETEROL FUMARATE 160/4.5 mcg INHALER IH SCH (09:05)
[2020-06-20 09:06] VITALS: BP 147/87; PULSE 102; TEMP 97.7
[2020-06-20] MEDS: amLODIPine BESYLATE 5 MG TABLET (FP) PO SCH (09:06)
[2020-06-20] MEDS: levETIRAcetam 500 MG TABLET (FP) PO SCH (09:06)
[2020-06-20] MEDS: GABAPENTIN 400 MG CAPSULE PO SCH (09:06)
[2020-06-20] MEDS: FLUTICASONE PROP 0.05% 16 GM NASAL SPRAY NS SCH (09:06)
[2020-06-20] MEDS: LIDOCAINE 5% TOPICAL PATCH TP SCH (09:07)
[2020-06-20] MEDS: LACOSAMIDE 50 MG TABLET PO SCH (09:07)
[2020-06-20] MEDS: PANTOPRAZOLE 20 MG TABLET PO SCH (09:07)
== END 2020-06-20 10:10 | disposition home or self-care (01) | DRG 772 ==
LOC: YASAS 16:11 → Y3W 17:43
PROVIDERS: ADMIT Allergy & Immunology; ATTEND Allergy & Immunology
PROC: HZ42ZZZ Group Counseling for Substance Abuse Treatment, Cognitive-Behavioral (ICD-10-PCS; principal; 2020-06-04)
DX: F10.20 Alcohol dependence, uncomplicated (principal); F14.20 Cocaine dependence, uncomplicated; F12.20 Cannabis dependence, uncomplicated; F19.282 Other psychoactive substance dependence with psychoactive substance-induced sleep disorder; F20.9 Schizophrenia, unspecified; F31.9 Bipolar disorder, unspecified; F43.10 Post-traumatic stress disorder, unspecified; G40.909 Epilepsy, unspecified, not intractable, without status epilepticus; I10 Essential (primary) hypertension; J44.9 Chronic obstructive pulmonary disease, unspecified; M54.5 Low back pain; G89.29 Other chronic pain; Z87.891 Personal history of nicotine dependence; Z98.890 Other specified postprocedural states; Z99.89 Dependence on other enabling machines and devices
CPT/HCPCS: 36415; 80053; 80177; 81003; 82140; 82962; 85027; 86780; 87389; 99283-25; C9803; U0003

== ENCOUNTER 2020-06-13 03:45 | Emergency (ER) | payer OTHER ==
[2020-06-13 03:59] VITALS: BP 127/88; PULSE 78; TEMP 98.1; BMI 25.5
[2020-06-13] MEDS ORDERED: levETIRAcetam 500 MG TABLET (FP) PO ONE ×2 (03:59→04:06)
== END 2020-06-13 05:58 | disposition home or self-care (01) ==
LOC: JER 03:45
DX: G40.89 Other seizures (principal)
CPT/HCPCS: 99283-25

== ENCOUNTER 2020-12-07 09:30 | Inpatient (IN) | payer OTHER ==
[2020-12-07 10:51] VITALS: BMI 20.6
[2020-12-07] MEDS ORDERED: IBUPROFEN 400 MG TABLET (FP) PO PRN (12:05)
[2020-12-07] MEDS ORDERED: MAGNESIUM HYDROX 2400MG/30ML ORAL SUSPENSION 30 ML CUP PO PRN (12:05)
[2020-12-07] MEDS ORDERED: ACETAMINOPHEN 325 MG TABLET (FP) PO PRN ×2 (12:05)
[2020-12-07] MEDS ORDERED: MAGNESIUM CITRATE 300 ML BOTTLE PO PRN (12:05)
[2020-12-07] MEDS ORDERED: BISMUTH SUBSALICYLATE 524 MG/30 ML PO PRN (12:05)
[2020-12-07] MEDS ORDERED: MAG HYDROX/AL HYDROX/SIMETH 30 ML UNIT-DOSE CUP PO PRN (12:05)
[2020-12-07] MEDS ORDERED: METHOCARBAMOL 500 MG TABLET PO PRN (12:05)
[2020-12-07] MEDS ORDERED: diazePAM 5 MG TABLET PO PRN (12:05)
[2020-12-07] MEDS ORDERED: ONDANSETRON *ODT* 4 MG TABLET SL PRN (12:05)
[2020-12-07] MEDS ORDERED: MENTHOL/PHENOL 1 EACH UD MM PRN (12:05)
[2020-12-07] MEDS ORDERED: ALBUTEROL SO4 HFA INHALER IH PRN (12:07)
[2020-12-07] MEDS: diazePAM 5 MG TABLET PO SCH ×3 (12:20→22:34)
[2020-12-07] MEDS: PRENATAL VITAMINS W/ FOLIC ACID TABLET (FP) PO SCH (13:23)
[2020-12-07] MEDS: hydrOXYzine PAMOATE 25 MG CAPSULE (FP) PO SCH ×3 (13:23→22:34)
[2020-12-07 16:55] LABS: HEMATOCRIT 39.8 % (35.4-49); HEMOGLOBIN 13.6 GM/dL (11.7-16.9); MCH 34.8 pg (25.7-33.7); MCHC 34.1 g/dl (32.0-35.9); MEAN CELL VOLUME 101.9 fl (80-96); MEAN PLT VOLUME 9.1 fl (7.5-11.1); PLATELET COUNT 142 10^3/uL (134-434); RDW 13.2 % (11.9-15.9); WHITE BLOOD COUNT 6.7 K/mm3 (4.0-10.0)
[2020-12-07 17:20] LABS: ALBUMIN 3.5 g/dl (3.4-5.0); BLOOD UREA NITROGEN 15.5 mg/dL (7-18); CALCIUM 8.5 mg/dL (8.5-10.1)
[2020-12-07 17:24] LABS: CREATININE 1.3 mg/dL (0.55-1.3)
[2020-12-07 17:25] LABS: TOT PROT 7.5 g/dl (6.4-8.2)
[2020-12-07 17:30] LABS: BILIRUBIN,TOTAL 1.1 mg/dL (0.2-1)
[2020-12-07] MEDS: THIAMINE HCL 100 MG TABLET (FP) PO SCH (22:34)
[2020-12-07] MEDS: BUDESONIDE/FORMETEROL FUMARATE 160/4.5 mcg INHALER IH SCH (22:34)
[2020-12-07] MEDS: levETIRAcetam 500 MG TABLET (FP) PO SCH (22:34)
[2020-12-07] MEDS: MELATONIN 5 MG TABLETS PO SCH (22:34)
[2020-12-07] MEDS: NAPHAZOLINE/PHENIRAMINE OPHTHALMIC 15 ML BOTTLE OU SCH (22:37)
[2020-12-07] MEDS: LACOSAMIDE 50 MG TABLET PO SCH (23:19)
[2020-12-08] MEDS: diazePAM 5 MG TABLET PO SCH ×4 (06:34→22:21)
[2020-12-08] MEDS: hydrOXYzine PAMOATE 25 MG CAPSULE (FP) PO SCH ×5 (06:34→22:24)
[2020-12-08] MEDS: levETIRAcetam 500 MG TABLET (FP) PO SCH ×2 (10:18→22:22)
[2020-12-08] MEDS: NADOLOL 20 MG TABLET (FP) PO SCH (10:18)
[2020-12-08] MEDS: amLODIPine BESYLATE 5 MG TABLET (FP) PO SCH (10:18)
[2020-12-08] MEDS: BUDESONIDE/FORMETEROL FUMARATE 160/4.5 mcg INHALER IH SCH ×2 (10:19→22:23)
[2020-12-08] MEDS: PANTOPRAZOLE 40 MG TABLET PO SCH (10:19)
[2020-12-08] MEDS: NAPHAZOLINE/PHENIRAMINE OPHTHALMIC 15 ML BOTTLE OU SCH ×2 (10:19→22:23)
[2020-12-08] MEDS: PRENATAL VITAMINS W/ FOLIC ACID TABLET (FP) PO SCH (10:19)
[2020-12-08] MEDS: LACOSAMIDE 50 MG TABLET PO SCH ×2 (11:06→22:22)
[2020-12-08] MEDS: THIAMINE HCL 100 MG TABLET (FP) PO SCH (22:22)
[2020-12-08] MEDS: MELATONIN 5 MG TABLETS PO SCH (22:22)
[2020-12-09] MEDS: hydrOXYzine PAMOATE 25 MG CAPSULE (FP) PO SCH ×5 (05:38→22:33)
[2020-12-09] MEDS: diazePAM 5 MG TABLET PO SCH ×3 (05:38→22:32)
[2020-12-09] MEDS: amLODIPine BESYLATE 5 MG TABLET (FP) PO SCH (10:25)
[2020-12-09] MEDS: levETIRAcetam 500 MG TABLET (FP) PO SCH ×2 (10:25→22:31)
[2020-12-09] MEDS: LACOSAMIDE 50 MG TABLET PO SCH ×2 (10:25→22:32)
[2020-12-09] MEDS: BUDESONIDE/FORMETEROL FUMARATE 160/4.5 mcg INHALER IH SCH ×2 (10:26→23:30)
[2020-12-09] MEDS: PRENATAL VITAMINS W/ FOLIC ACID TABLET (FP) PO SCH (10:26)
[2020-12-09] MEDS: NAPHAZOLINE/PHENIRAMINE OPHTHALMIC 15 ML BOTTLE OU SCH ×2 (10:26→23:31)
[2020-12-09] MEDS: PANTOPRAZOLE 40 MG TABLET PO SCH (10:26)
[2020-12-09] MEDS: NADOLOL 20 MG TABLET (FP) PO SCH (10:27)
[2020-12-09] MEDS: THIAMINE HCL 100 MG TABLET (FP) PO SCH (22:33)
[2020-12-09] MEDS: MELATONIN 5 MG TABLETS PO SCH (23:30)
[2020-12-10] MEDS: diazePAM 5 MG TABLET PO SCH ×2 (05:25→20:52)
[2020-12-10] MEDS: hydrOXYzine PAMOATE 25 MG CAPSULE (FP) PO SCH ×4 (06:42→20:56)
[2020-12-10] MEDS: NADOLOL 20 MG TABLET (FP) PO SCH (10:05)
[2020-12-10] MEDS: PANTOPRAZOLE 40 MG TABLET PO SCH (10:05)
[2020-12-10] MEDS: LACOSAMIDE 50 MG TABLET PO SCH ×2 (10:06→21:19)
[2020-12-10] MEDS: levETIRAcetam 500 MG TABLET (FP) PO SCH ×2 (10:06→21:19)
[2020-12-10] MEDS: amLODIPine BESYLATE 5 MG TABLET (FP) PO SCH (10:06)
[2020-12-10] MEDS: PRENATAL VITAMINS W/ FOLIC ACID TABLET (FP) PO SCH (10:06)
[2020-12-10] MEDS: NAPHAZOLINE/PHENIRAMINE OPHTHALMIC 15 ML BOTTLE OU SCH ×2 (10:07→21:26)
[2020-12-10] MEDS: BUDESONIDE/FORMETEROL FUMARATE 160/4.5 mcg INHALER IH SCH (10:07)
[2020-12-10] MEDS: MELATONIN 5 MG TABLETS PO SCH (21:22)
[2020-12-10] MEDS: THIAMINE HCL 100 MG TABLET (FP) PO SCH (21:24)
[2020-12-10] MEDS ORDERED: QUEtiapine FUMARATE 100 MG TABLET (FP) PO SCH (22:00)
[2020-12-11] MEDS: BUDESONIDE/FORMETEROL FUMARATE 160/4.5 mcg INHALER IH SCH ×2 (00:11→10:31)
[2020-12-11] MEDS: hydrOXYzine PAMOATE 25 MG CAPSULE (FP) PO SCH ×3 (00:11→10:34)
[2020-12-11] MEDS ORDERED: diazePAM 5 MG TABLET PO ONE (06:00)
[2020-12-11 06:40] VITALS: BP 117/68; PULSE 69; TEMP 97
[2020-12-11] MEDS: NADOLOL 20 MG TABLET (FP) PO SCH (10:30)
[2020-12-11] MEDS: PRENATAL VITAMINS W/ FOLIC ACID TABLET (FP) PO SCH (10:31)
[2020-12-11] MEDS: amLODIPine BESYLATE 5 MG TABLET (FP) PO SCH (10:31)
[2020-12-11] MEDS: LACOSAMIDE 50 MG TABLET PO SCH (10:31)
[2020-12-11] MEDS: levETIRAcetam 500 MG TABLET (FP) PO SCH (10:31)
[2020-12-11] MEDS: PANTOPRAZOLE 40 MG TABLET PO SCH (10:32)
[2020-12-11] MEDS: NAPHAZOLINE/PHENIRAMINE OPHTHALMIC 15 ML BOTTLE OU SCH (10:32)
== END 2020-12-11 12:32 | disposition other institution (70) | DRG 773 ==
LOC: YASAS 09:30 → Y3N 12:38
PROVIDERS: ADMIT Allergy & Immunology; ATTEND Allergy & Immunology
PROC: HZ2ZZZZ Detoxification Services for Substance Abuse Treatment (ICD-10-PCS; principal; 2020-12-07)
DX: F10.230 Alcohol dependence with withdrawal, uncomplicated (principal); F11.10 Opioid abuse, uncomplicated; F14.20 Cocaine dependence, uncomplicated; F12.20 Cannabis dependence, uncomplicated; F17.210 Nicotine dependence, cigarettes, uncomplicated; F41.9 Anxiety disorder, unspecified; F32.9 Major depressive disorder, single episode, unspecified; F43.10 Post-traumatic stress disorder, unspecified; G40.909 Epilepsy, unspecified, not intractable, without status epilepticus; I10 Essential (primary) hypertension; J45.909 Unspecified asthma, uncomplicated; K21.9 Gastro-esophageal reflux disease without esophagitis; Z62.810 Personal history of physical and sexual abuse in childhood; Z56.0 Unemployment, unspecified; Z59.0 Homelessness; Z91.011 Allergy to milk products
CPT/HCPCS: 36415; 80053; 82947; 85027; 86780; C9803; U0003; U0005

== ENCOUNTER 2020-12-11 13:15 | Inpatient (IN) | payer OTHER ==
[2020-12-11] MEDS ORDERED: IBUPROFEN 400 MG TABLET (FP) PO PRN (15:01)
[2020-12-11] MEDS ORDERED: guaiFENesin 200 MG/10 ML 10 ML UNIT-DOSE CUPS PO PRN (15:01)
[2020-12-11] MEDS ORDERED: NICOTINE 10 MG CARTRIDGE (INHALER) IH PRN (15:01)
[2020-12-11] MEDS ORDERED: hydrOXYzine PAMOATE 25 MG CAPSULE (FP) PO PRN (15:01)
[2020-12-11] MEDS ORDERED: MAGNESIUM CITRATE 300 ML BOTTLE PO PRN (15:01)
[2020-12-11] MEDS ORDERED: ACETAMINOPHEN 325 MG TABLET (FP) PO PRN (15:01)
[2020-12-11] MEDS ORDERED: MAG HYDROX/AL HYDROX/SIMETH 30 ML UNIT-DOSE CUP PO PRN (15:01)
[2020-12-11] MEDS ORDERED: MAGNESIUM HYDROX 2400MG/30ML ORAL SUSPENSION 30 ML CUP PO PRN (15:01)
[2020-12-11] MEDS ORDERED: LOPERAMIDE HCL 2 MG CAPSULE PO PRN (15:01)
[2020-12-11] MEDS ORDERED: MENTHOL/PHENOL 1 EACH UD MM PRN (15:01)
[2020-12-11] MEDS ORDERED: P-EPHED 60MG/TRIPROLIDI 2.5MG TABLET PO PRN (15:01)
[2020-12-11] MEDS ORDERED: ALBUTEROL SO4 HFA INHALER IH PRN (15:04)
[2020-12-11] MEDS: LACOSAMIDE 50 MG TABLET PO SCH (21:23)
[2020-12-11] MEDS: levETIRAcetam 500 MG TABLET (FP) PO SCH (21:23)
[2020-12-11] MEDS: BUDESONIDE/FORMETEROL FUMARATE 160/4.5 mcg INHALER IH SCH (21:24)
[2020-12-11] MEDS: MELATONIN 5 MG TABLETS PO SCH (21:24)
[2020-12-11] MEDS: THIAMINE HCL 100 MG TABLET (FP) PO SCH (21:24)
[2020-12-11] MEDS ORDERED: QUEtiapine FUMARATE 100 MG TABLET (FP) PO SCH (22:00)
[2020-12-12] MEDS: BUDESONIDE/FORMETEROL FUMARATE 160/4.5 mcg INHALER IH SCH ×2 (09:39→21:14)
[2020-12-12] MEDS: PRENATAL VITAMINS W/ FOLIC ACID TABLET (FP) PO SCH (09:39)
[2020-12-12] MEDS: NADOLOL 20 MG TABLET (FP) PO SCH (09:40)
[2020-12-12] MEDS: LACOSAMIDE 50 MG TABLET PO SCH ×2 (09:40→21:14)
[2020-12-12] MEDS: amLODIPine BESYLATE 5 MG TABLET (FP) PO SCH (09:40)
[2020-12-12] MEDS: levETIRAcetam 500 MG TABLET (FP) PO SCH ×2 (09:40→21:13)
[2020-12-12] MEDS: PANTOPRAZOLE 40 MG TABLET PO SCH (09:40)
[2020-12-12] MEDS: NICOTINE 7 MG/24 HOURS TOPICAL PATCH TD SCH (09:42)
[2020-12-12] MEDS: COLLOIDAL OATMEAL 1 BAR EACH TP PRN (13:31)
[2020-12-12] MEDS: QUEtiapine FUMARATE 50 MG TABLET PO SCH (15:35)
[2020-12-12] MEDS ORDERED: PT OWN MED DRAWER 7, Y5N ONE (19:25)
[2020-12-12] MEDS: QUEtiapine FUMARATE 200 MG TABLET PO SCH (21:13)
[2020-12-12] MEDS: THIAMINE HCL 100 MG TABLET (FP) PO SCH (21:13)
[2020-12-12] MEDS: MELATONIN 5 MG TABLETS PO SCH (21:14)
[2020-12-13] MEDS: levETIRAcetam 500 MG TABLET (FP) PO SCH ×2 (09:32→21:16)
[2020-12-13] MEDS: LACOSAMIDE 50 MG TABLET PO SCH ×2 (09:32→21:16)
[2020-12-13] MEDS: amLODIPine BESYLATE 5 MG TABLET (FP) PO SCH (09:32)
[2020-12-13] MEDS: FLUoxetine HCL 20 MG CAPSULE PO SCH (09:32)
[2020-12-13] MEDS: QUEtiapine FUMARATE 50 MG TABLET PO SCH (09:32)
[2020-12-13] MEDS: PANTOPRAZOLE 40 MG TABLET PO SCH (09:32)
[2020-12-13] MEDS: PRENATAL VITAMINS W/ FOLIC ACID TABLET (FP) PO SCH (09:33)
[2020-12-13] MEDS: NADOLOL 20 MG TABLET (FP) PO SCH (09:33)
[2020-12-13] MEDS: BUDESONIDE/FORMETEROL FUMARATE 160/4.5 mcg INHALER IH SCH ×3 (09:33→21:15)
[2020-12-13] MEDS: NICOTINE 7 MG/24 HOURS TOPICAL PATCH TD SCH (09:33)
[2020-12-13] MEDS: METHOCARBAMOL 500 MG TABLET PO PRN (12:38)
[2020-12-13] MEDS: LIDOCAINE 5% TOPICAL PATCH TP SCH (12:38)
[2020-12-13] MEDS: QUEtiapine FUMARATE 200 MG TABLET PO SCH (21:16)
[2020-12-13] MEDS: LIDOCAINE PATCH REMOVAL MC SCH (21:17)
[2020-12-13] MEDS: MELATONIN 5 MG TABLETS PO SCH (21:17)
[2020-12-13] MEDS: THIAMINE HCL 100 MG TABLET (FP) PO SCH (21:17)
[2020-12-14] MEDS: PANTOPRAZOLE 40 MG TABLET PO SCH (09:50)
[2020-12-14] MEDS: LACOSAMIDE 50 MG TABLET PO SCH ×2 (09:50→21:04)
[2020-12-14] MEDS: QUEtiapine FUMARATE 50 MG TABLET PO SCH (09:50)
[2020-12-14] MEDS: amLODIPine BESYLATE 5 MG TABLET (FP) PO SCH (09:50)
[2020-12-14] MEDS: FLUoxetine HCL 20 MG CAPSULE PO SCH (09:50)
[2020-12-14] MEDS: BUDESONIDE/FORMETEROL FUMARATE 160/4.5 mcg INHALER IH SCH ×2 (09:50→21:03)
[2020-12-14] MEDS: levETIRAcetam 500 MG TABLET (FP) PO SCH ×2 (09:50→21:04)
[2020-12-14] MEDS: PRENATAL VITAMINS W/ FOLIC ACID TABLET (FP) PO SCH (09:51)
[2020-12-14] MEDS: NADOLOL 20 MG TABLET (FP) PO SCH (09:51)
[2020-12-14] MEDS: NICOTINE 7 MG/24 HOURS TOPICAL PATCH TD SCH (09:52)
[2020-12-14] MEDS: LIDOCAINE 5% TOPICAL PATCH TP SCH (09:52)
[2020-12-14] MEDS: QUEtiapine FUMARATE 300 MG TABLET PO SCH (21:04)
[2020-12-14] MEDS: THIAMINE HCL 100 MG TABLET (FP) PO SCH (21:05)
[2020-12-14] MEDS: MELATONIN 5 MG TABLETS PO SCH (21:05)
[2020-12-14] MEDS: LIDOCAINE PATCH REMOVAL MC SCH (21:14)
[2020-12-15] MEDS: NICOTINE 7 MG/24 HOURS TOPICAL PATCH TD SCH (09:26)
[2020-12-15] MEDS: BUDESONIDE/FORMETEROL FUMARATE 160/4.5 mcg INHALER IH SCH ×2 (09:26→21:08)
[2020-12-15] MEDS: PRENATAL VITAMINS W/ FOLIC ACID TABLET (FP) PO SCH (09:26)
[2020-12-15] MEDS: PANTOPRAZOLE 40 MG TABLET PO SCH (09:27)
[2020-12-15] MEDS: FLUoxetine HCL 20 MG CAPSULE PO SCH (09:27)
[2020-12-15] MEDS: amLODIPine BESYLATE 5 MG TABLET (FP) PO SCH (09:27)
[2020-12-15] MEDS: levETIRAcetam 500 MG TABLET (FP) PO SCH ×2 (09:27→21:08)
[2020-12-15] MEDS: LACOSAMIDE 50 MG TABLET PO SCH ×2 (09:27→21:08)
[2020-12-15] MEDS: NADOLOL 20 MG TABLET (FP) PO SCH (09:28)
[2020-12-15] MEDS: LIDOCAINE 5% TOPICAL PATCH TP SCH (09:28)
[2020-12-15] MEDS: METHOCARBAMOL 500 MG TABLET PO PRN (09:29)
[2020-12-15] MEDS: QUEtiapine FUMARATE 300 MG TABLET PO SCH (21:08)
[2020-12-15] MEDS: MELATONIN 5 MG TABLETS PO SCH (21:08)
[2020-12-15] MEDS: THIAMINE HCL 100 MG TABLET (FP) PO SCH (21:08)
[2020-12-15] MEDS: LIDOCAINE PATCH REMOVAL MC SCH (21:09)
[2020-12-16] MEDS: PANTOPRAZOLE 40 MG TABLET PO SCH (09:46)
[2020-12-16] MEDS: BUDESONIDE/FORMETEROL FUMARATE 160/4.5 mcg INHALER IH SCH ×2 (09:46→22:08)
[2020-12-16] MEDS: amLODIPine BESYLATE 5 MG TABLET (FP) PO SCH (09:46)
[2020-12-16] MEDS: FLUoxetine HCL 20 MG CAPSULE PO SCH (09:46)
[2020-12-16] MEDS: PRENATAL VITAMINS W/ FOLIC ACID TABLET (FP) PO SCH (09:46)
[2020-12-16] MEDS: levETIRAcetam 500 MG TABLET (FP) PO SCH ×2 (09:46→22:05)
[2020-12-16] MEDS: LACOSAMIDE 50 MG TABLET PO SCH ×2 (09:46→22:08)
[2020-12-16] MEDS: NADOLOL 20 MG TABLET (FP) PO SCH (09:47)
[2020-12-16] MEDS: NICOTINE 7 MG/24 HOURS TOPICAL PATCH TD SCH (09:47)
[2020-12-16] MEDS: LIDOCAINE 5% TOPICAL PATCH TP SCH (09:47)
[2020-12-16] MEDS: THIAMINE HCL 100 MG TABLET (FP) PO SCH (22:05)
[2020-12-16] MEDS: MELATONIN 5 MG TABLETS PO SCH (22:06)
[2020-12-16] MEDS: QUEtiapine FUMARATE 300 MG TABLET PO SCH (22:06)
[2020-12-16] MEDS ORDERED: PT OWN MED DRAWER 7, Y5N ONE (22:07)
[2020-12-16] MEDS: LIDOCAINE PATCH REMOVAL MC SCH (22:08)
[2020-12-16] MEDS: TETRAHYDROZOLINE HCL EYE DROPS OU PRN (22:11)
[2020-12-16 22:24] VITALS: BMI 21.2
[2020-12-17] MEDS: LACOSAMIDE 50 MG TABLET PO SCH ×2 (10:40→21:13)
[2020-12-17] MEDS: FLUoxetine HCL 20 MG CAPSULE PO SCH (10:40)
[2020-12-17] MEDS: levETIRAcetam 500 MG TABLET (FP) PO SCH ×2 (10:40→21:13)
[2020-12-17] MEDS: PRENATAL VITAMINS W/ FOLIC ACID TABLET (FP) PO SCH (10:40)
[2020-12-17] MEDS: PANTOPRAZOLE 40 MG TABLET PO SCH (10:40)
[2020-12-17] MEDS: NADOLOL 20 MG TABLET (FP) PO SCH (10:40)
[2020-12-17] MEDS: BUDESONIDE/FORMETEROL FUMARATE 160/4.5 mcg INHALER IH SCH ×2 (10:41→21:13)
[2020-12-17] MEDS: NICOTINE 7 MG/24 HOURS TOPICAL PATCH TD SCH (10:41)
[2020-12-17] MEDS: LIDOCAINE 5% TOPICAL PATCH TP SCH (10:41)
[2020-12-17] MEDS: amLODIPine BESYLATE 5 MG TABLET (FP) PO SCH (10:41)
[2020-12-17] MEDS: TETRAHYDROZOLINE HCL EYE DROPS OU PRN (10:45)
[2020-12-17] MEDS: IBUPROFEN 600 MG TABLET (FP) PO PRN (15:40)
[2020-12-17] MEDS: THIAMINE HCL 100 MG TABLET (FP) PO SCH (21:12)
[2020-12-17] MEDS: LIDOCAINE PATCH REMOVAL MC SCH (21:13)
[2020-12-17] MEDS: QUEtiapine FUMARATE 300 MG TABLET PO SCH (21:13)
[2020-12-17] MEDS: MELATONIN 5 MG TABLETS PO SCH (21:13)
[2020-12-18] MEDS: BUDESONIDE/FORMETEROL FUMARATE 160/4.5 mcg INHALER IH SCH ×2 (10:03→21:15)
[2020-12-18] MEDS: PRENATAL VITAMINS W/ FOLIC ACID TABLET (FP) PO SCH (10:03)
[2020-12-18] MEDS: amLODIPine BESYLATE 5 MG TABLET (FP) PO SCH (10:17)
[2020-12-18] MEDS: FLUoxetine HCL 20 MG CAPSULE PO SCH (10:17)
[2020-12-18] MEDS: PANTOPRAZOLE 40 MG TABLET PO SCH (10:17)
[2020-12-18] MEDS: LACOSAMIDE 50 MG TABLET PO SCH ×2 (10:17→21:12)
[2020-12-18] MEDS: levETIRAcetam 500 MG TABLET (FP) PO SCH ×2 (10:17→21:12)
[2020-12-18] MEDS: LIDOCAINE 5% TOPICAL PATCH TP SCH (10:19)
[2020-12-18] MEDS: NICOTINE 7 MG/24 HOURS TOPICAL PATCH TD SCH (10:19)
[2020-12-18] MEDS: NADOLOL 20 MG TABLET (FP) PO SCH (12:00)
[2020-12-18] MEDS ORDERED: PT OWN MED DRAWER 7, Y5N ONE (12:02)
[2020-12-18] MEDS: QUEtiapine FUMARATE 300 MG TABLET PO SCH (21:12)
[2020-12-18] MEDS: THIAMINE HCL 100 MG TABLET (FP) PO SCH (21:12)
[2020-12-18] MEDS: LIDOCAINE PATCH REMOVAL MC SCH (21:13)
[2020-12-18] MEDS: MELATONIN 5 MG TABLETS PO SCH (21:13)
[2020-12-19] MEDS: FLUoxetine HCL 20 MG CAPSULE PO SCH (09:47)
[2020-12-19] MEDS: amLODIPine BESYLATE 5 MG TABLET (FP) PO SCH (09:47)
[2020-12-19] MEDS: PANTOPRAZOLE 40 MG TABLET PO SCH (09:47)
[2020-12-19] MEDS: NADOLOL 20 MG TABLET (FP) PO SCH (09:47)
[2020-12-19] MEDS: PRENATAL VITAMINS W/ FOLIC ACID TABLET (FP) PO SCH (09:47)
[2020-12-19] MEDS: LACOSAMIDE 50 MG TABLET PO SCH ×2 (09:48→21:35)
[2020-12-19] MEDS: levETIRAcetam 500 MG TABLET (FP) PO SCH ×2 (09:48→21:35)
[2020-12-19] MEDS: NICOTINE 7 MG/24 HOURS TOPICAL PATCH TD SCH (09:49)
[2020-12-19] MEDS: BUDESONIDE/FORMETEROL FUMARATE 160/4.5 mcg INHALER IH SCH ×2 (10:51→21:36)
[2020-12-19] MEDS: LIDOCAINE 5% TOPICAL PATCH TP SCH (10:57)
[2020-12-19] MEDS ORDERED: PT OWN MED DRAWER 7, Y5N ONE (13:22)
[2020-12-19] MEDS: THIAMINE HCL 100 MG TABLET (FP) PO SCH (21:34)
[2020-12-19] MEDS: MELATONIN 5 MG TABLETS PO SCH (21:34)
[2020-12-19] MEDS: QUEtiapine FUMARATE 300 MG TABLET PO SCH (21:35)
[2020-12-19] MEDS: LIDOCAINE PATCH REMOVAL MC SCH (21:36)
[2020-12-20] MEDS: COLLOIDAL OATMEAL 1 BAR EACH TP PRN (06:23)
[2020-12-20] MEDS ORDERED: PT OWN MED DRAWER 7, Y5N ONE (08:21)
[2020-12-20] MEDS: levETIRAcetam 500 MG TABLET (FP) PO SCH ×2 (09:43→21:06)
[2020-12-20] MEDS: BUDESONIDE/FORMETEROL FUMARATE 160/4.5 mcg INHALER IH SCH ×2 (09:43→21:08)
[2020-12-20] MEDS: LACOSAMIDE 50 MG TABLET PO SCH ×2 (09:43→21:07)
[2020-12-20] MEDS: NADOLOL 20 MG TABLET (FP) PO SCH (09:44)
[2020-12-20] MEDS: NICOTINE 7 MG/24 HOURS TOPICAL PATCH TD SCH (09:44)
[2020-12-20] MEDS: PRENATAL VITAMINS W/ FOLIC ACID TABLET (FP) PO SCH (09:44)
[2020-12-20] MEDS: PANTOPRAZOLE 40 MG TABLET PO SCH (09:44)
[2020-12-20] MEDS: FLUoxetine HCL 20 MG CAPSULE PO SCH (09:44)
[2020-12-20] MEDS: amLODIPine BESYLATE 5 MG TABLET (FP) PO SCH (09:44)
[2020-12-20] MEDS: LIDOCAINE 5% TOPICAL PATCH TP SCH (09:44)
[2020-12-20] MEDS ORDERED: LACTULOSE 20 GM/30 ML UDC (FOR ORAL USE ONLY) PO PRN (11:28)
[2020-12-20] MEDS: LACTULOSE 20 GM/30 ML UDC (FOR ORAL USE ONLY) PO SCH ×2 (14:11→21:06)
[2020-12-20] MEDS: QUEtiapine FUMARATE 300 MG TABLET PO SCH (21:06)
[2020-12-20] MEDS: THIAMINE HCL 100 MG TABLET (FP) PO SCH (21:06)
[2020-12-20] MEDS: MELATONIN 5 MG TABLETS PO SCH (21:06)
[2020-12-20] MEDS: LIDOCAINE PATCH REMOVAL MC SCH (21:08)
[2020-12-21] MEDS: LACTULOSE 20 GM/30 ML UDC (FOR ORAL USE ONLY) PO SCH ×3 (06:55→22:17)
[2020-12-21] MEDS: IBUPROFEN 600 MG TABLET (FP) PO PRN (07:46)
[2020-12-21] MEDS: PRENATAL VITAMINS W/ FOLIC ACID TABLET (FP) PO SCH (10:16)
[2020-12-21] MEDS: BUDESONIDE/FORMETEROL FUMARATE 160/4.5 mcg INHALER IH SCH ×2 (10:17→22:18)
[2020-12-21] MEDS: LACOSAMIDE 50 MG TABLET PO SCH ×2 (10:17→22:18)
[2020-12-21] MEDS: NICOTINE 7 MG/24 HOURS TOPICAL PATCH TD SCH (10:17)
[2020-12-21] MEDS: FLUoxetine HCL 20 MG CAPSULE PO SCH (10:17)
[2020-12-21] MEDS: PANTOPRAZOLE 40 MG TABLET PO SCH (10:17)
[2020-12-21] MEDS: amLODIPine BESYLATE 5 MG TABLET (FP) PO SCH (10:17)
[2020-12-21] MEDS: NADOLOL 20 MG TABLET (FP) PO SCH (10:17)
[2020-12-21] MEDS: levETIRAcetam 500 MG TABLET (FP) PO SCH ×2 (10:17→22:18)
[2020-12-21] MEDS: LIDOCAINE 5% TOPICAL PATCH TP SCH (10:18)
[2020-12-21] MEDS: QUEtiapine FUMARATE 300 MG TABLET PO SCH (22:18)
[2020-12-21] MEDS: MELATONIN 5 MG TABLETS PO SCH (22:18)
[2020-12-21] MEDS: LIDOCAINE PATCH REMOVAL MC SCH (22:18)
[2020-12-21] MEDS: THIAMINE HCL 100 MG TABLET (FP) PO SCH (22:18)
[2020-12-22] MEDS: LACTULOSE 20 GM/30 ML UDC (FOR ORAL USE ONLY) PO SCH (06:49)
[2020-12-22 06:50] VITALS: BP 133/68; PULSE 65; TEMP 96.9
[2020-12-22] MEDS: NADOLOL 20 MG TABLET (FP) PO SCH (09:27)
[2020-12-22] MEDS: BUDESONIDE/FORMETEROL FUMARATE 160/4.5 mcg INHALER IH SCH (09:28)
[2020-12-22] MEDS: PANTOPRAZOLE 40 MG TABLET PO SCH (09:28)
[2020-12-22] MEDS: LACOSAMIDE 50 MG TABLET PO SCH (09:28)
[2020-12-22] MEDS: levETIRAcetam 500 MG TABLET (FP) PO SCH (09:28)
[2020-12-22] MEDS: FLUoxetine HCL 20 MG CAPSULE PO SCH (09:28)
[2020-12-22] MEDS: PRENATAL VITAMINS W/ FOLIC ACID TABLET (FP) PO SCH (09:29)
[2020-12-22] MEDS: NICOTINE 7 MG/24 HOURS TOPICAL PATCH TD SCH (09:29)
[2020-12-22] MEDS: amLODIPine BESYLATE 5 MG TABLET (FP) PO SCH (09:29)
[2020-12-22] MEDS: LIDOCAINE 5% TOPICAL PATCH TP SCH (09:29)
== END 2020-12-22 09:43 | disposition home or self-care (01) | DRG 772 ==
LOC: YASAS 13:15 → Y5N 13:16
PROVIDERS: ADMIT Allergy & Immunology; ATTEND Allergy & Immunology
PROC: HZ42ZZZ Group Counseling for Substance Abuse Treatment, Cognitive-Behavioral (ICD-10-PCS; principal; 2020-12-11)
DX: F11.20 Opioid dependence, uncomplicated (principal); F10.20 Alcohol dependence, uncomplicated; F14.20 Cocaine dependence, uncomplicated; F12.20 Cannabis dependence, uncomplicated; F19.282 Other psychoactive substance dependence with psychoactive substance-induced sleep disorder; F25.9 Schizoaffective disorder, unspecified; F31.9 Bipolar disorder, unspecified; F32.9 Major depressive disorder, single episode, unspecified; G40.909 Epilepsy, unspecified, not intractable, without status epilepticus; G47.00 Insomnia, unspecified; I10 Essential (primary) hypertension; J45.909 Unspecified asthma, uncomplicated; K21.9 Gastro-esophageal reflux disease without esophagitis; Z86.59 Personal history of other mental and behavioral disorders; Z99.89 Dependence on other enabling machines and devices; Z87.891 Personal history of nicotine dependence; Z91.011 Allergy to milk products; Z91.19 Patient's noncompliance with other medical treatment and regimen
CPT/HCPCS: 82140; 83036

== ENCOUNTER 2021-05-25 09:05 | Inpatient (IN) | payer SELFPAY ==
[2021-05-25 11:47] VITALS: BMI 19.8
[2021-05-25] MEDS ORDERED: NICOTINE 10 MG CARTRIDGE (INHALER) IH PRN (12:10)
[2021-05-25] MEDS ORDERED: guaiFENesin 200 MG/10 ML 10 ML UNIT-DOSE CUPS PO PRN (12:10)
[2021-05-25] MEDS ORDERED: ACETAMINOPHEN 325 MG TABLET (FP) PO PRN (12:10)
[2021-05-25] MEDS ORDERED: MAG HYDROX/AL HYDROX/SIMETH 30 ML UNIT-DOSE CUP PO PRN (12:10)
[2021-05-25] MEDS ORDERED: MAGNESIUM HYDROX 2400MG/30ML ORAL SUSPENSION 30 ML CUP PO PRN (12:10)
[2021-05-25] MEDS ORDERED: P-EPHED 60MG/TRIPROLIDI 2.5MG TABLET PO PRN (12:10)
[2021-05-25] MEDS ORDERED: IBUPROFEN 400 MG TABLET (FP) PO PRN (12:10)
[2021-05-25] MEDS ORDERED: LOPERAMIDE HCL 2 MG CAPSULE PO PRN (12:10)
[2021-05-25] MEDS ORDERED: MAGNESIUM CITRATE 300 ML BOTTLE PO PRN (12:10)
[2021-05-25] MEDS ORDERED: ALBUTEROL SO4 HFA INHALER IH PRN (12:12)
[2021-05-25] MEDS ORDERED: chlordiazePOXIDE HCL 25 MG CAPSULE PO PRN (12:24)
[2021-05-25] MEDS: NICOTINE 7 MG/24 HOURS TOPICAL PATCH TD SCH (13:31)
[2021-05-25] MEDS: PRENATAL VITAMINS W/ FOLIC ACID TABLET (FP) PO SCH (13:31)
[2021-05-25] MEDS: hydrOXYzine PAMOATE 25 MG CAPSULE (FP) PO SCH ×3 (13:31→22:35)
[2021-05-25] MEDS: chlordiazePOXIDE HCL 25 MG CAPSULE PO SCH ×3 (13:32→22:35)
[2021-05-25] MEDS: levETIRAcetam 500 MG TABLET (FP) PO SCH (22:34)
[2021-05-25] MEDS: THIAMINE HCL 100 MG TABLET (FP) PO SCH (22:34)
[2021-05-25] MEDS: MELATONIN 5 MG TABLETS PO SCH (22:35)
[2021-05-25] MEDS: BUDESONIDE/FORMETEROL FUMARATE 160/4.5 mcg INHALER IH SCH (22:36)
[2021-05-26] MEDS: chlordiazePOXIDE HCL 25 MG CAPSULE PO SCH ×4 (05:27→22:26)
[2021-05-26] MEDS: hydrOXYzine PAMOATE 25 MG CAPSULE (FP) PO SCH ×5 (05:28→22:26)
[2021-05-26] MEDS: PANTOPRAZOLE 20 MG TABLET PO SCH (10:27)
[2021-05-26] MEDS: levETIRAcetam 500 MG TABLET (FP) PO SCH ×2 (10:27→22:24)
[2021-05-26] MEDS: NADOLOL 20 MG TABLET (FP) PO SCH (10:27)
[2021-05-26] MEDS: amLODIPine BESYLATE 5 MG TABLET (FP) PO SCH (10:27)
[2021-05-26] MEDS: PRENATAL VITAMINS W/ FOLIC ACID TABLET (FP) PO SCH (10:28)
[2021-05-26] MEDS: BUDESONIDE/FORMETEROL FUMARATE 160/4.5 mcg INHALER IH SCH ×2 (10:28→22:25)
[2021-05-26] MEDS: NICOTINE 7 MG/24 HOURS TOPICAL PATCH TD SCH (10:28)
[2021-05-26] MEDS ORDERED: COLLOIDAL OATMEAL 1 BAR EACH TP PRN (12:45)
[2021-05-26] MEDS: LIDOCAINE 5% TOPICAL PATCH TP SCH (12:57)
[2021-05-26] MEDS: GABAPENTIN 100 MG CAPSULE PO SCH ×2 (14:51→22:25)
[2021-05-26] MEDS: AMMONIUM LACTATE 12% LOTION 225 GM BOTTLE TP SCH ×2 (14:51→22:26)
[2021-05-26] MEDS: THIAMINE HCL 100 MG TABLET (FP) PO SCH (22:24)
[2021-05-26] MEDS: MELATONIN 5 MG TABLETS PO SCH (22:24)
[2021-05-26] MEDS: LACOSAMIDE 50 MG TABLET PO SCH (22:25)
[2021-05-26] MEDS: LIDOCAINE PATCH REMOVAL MC SCH (22:25)
[2021-05-27] MEDS: GABAPENTIN 100 MG CAPSULE PO SCH ×3 (05:23→22:57)
[2021-05-27] MEDS: hydrOXYzine PAMOATE 25 MG CAPSULE (FP) PO SCH ×5 (05:23→23:04)
[2021-05-27] MEDS: chlordiazePOXIDE HCL 25 MG CAPSULE PO SCH ×4 (05:23→23:05)
[2021-05-27] MEDS: PRENATAL VITAMINS W/ FOLIC ACID TABLET (FP) PO SCH (10:29)
[2021-05-27] MEDS: LIDOCAINE 5% TOPICAL PATCH TP SCH (10:29)
[2021-05-27] MEDS: BUDESONIDE/FORMETEROL FUMARATE 160/4.5 mcg INHALER IH SCH ×2 (10:29→22:55)
[2021-05-27] MEDS: PANTOPRAZOLE 20 MG TABLET PO SCH (10:30)
[2021-05-27] MEDS: amLODIPine BESYLATE 5 MG TABLET (FP) PO SCH (10:30)
[2021-05-27] MEDS: levETIRAcetam 500 MG TABLET (FP) PO SCH ×2 (10:30→22:56)
[2021-05-27] MEDS: LACOSAMIDE 50 MG TABLET PO SCH ×2 (10:30→22:56)
[2021-05-27] MEDS: NADOLOL 20 MG TABLET (FP) PO SCH (10:31)
[2021-05-27] MEDS: AMMONIUM LACTATE 12% LOTION 225 GM BOTTLE TP SCH ×2 (10:31→23:05)
[2021-05-27] MEDS: NICOTINE 7 MG/24 HOURS TOPICAL PATCH TD SCH (10:31)
[2021-05-27 14:06] LABS: SARS-CoV-2 NAA Not Detected (Not Detected)
[2021-05-27] MEDS: QUEtiapine FUMARATE 100 MG TABLET (FP) PO SCH (22:57)
[2021-05-27] MEDS: THIAMINE HCL 100 MG TABLET (FP) PO SCH (23:04)
[2021-05-27] MEDS: MELATONIN 5 MG TABLETS PO SCH (23:05)
[2021-05-27] MEDS: LIDOCAINE PATCH REMOVAL MC SCH (23:05)
[2021-05-28] MEDS ORDERED: chlordiazePOXIDE HCL 10 MG CAPSULE PO PRN
[2021-05-28] MEDS: hydrOXYzine PAMOATE 25 MG CAPSULE (FP) PO SCH ×5 (05:58→22:49)
[2021-05-28] MEDS: GABAPENTIN 100 MG CAPSULE PO SCH ×3 (05:58→22:37)
[2021-05-28] MEDS: chlordiazePOXIDE HCL 10 MG CAPSULE PO SCH ×4 (05:59→22:38)
[2021-05-28] MEDS: NICOTINE 7 MG/24 HOURS TOPICAL PATCH TD SCH (10:35)
[2021-05-28] MEDS: levETIRAcetam 500 MG TABLET (FP) PO SCH ×2 (10:35→22:35)
[2021-05-28] MEDS: PRENATAL VITAMINS W/ FOLIC ACID TABLET (FP) PO SCH (10:35)
[2021-05-28] MEDS: BUDESONIDE/FORMETEROL FUMARATE 160/4.5 mcg INHALER IH SCH ×2 (10:35→22:42)
[2021-05-28] MEDS: amLODIPine BESYLATE 5 MG TABLET (FP) PO SCH (10:36)
[2021-05-28] MEDS: AMMONIUM LACTATE 12% LOTION 225 GM BOTTLE TP SCH ×2 (10:36→22:39)
[2021-05-28] MEDS: LACOSAMIDE 50 MG TABLET PO SCH ×2 (10:36→22:38)
[2021-05-28] MEDS: PANTOPRAZOLE 20 MG TABLET PO SCH (10:36)
[2021-05-28] MEDS: NADOLOL 20 MG TABLET (FP) PO SCH (10:38)
[2021-05-28 10:56] LABS: HEMATOCRIT 37.9 % (35.4-49); HEMOGLOBIN 12.6 GM/dL (11.7-16.9); MCH 33.5 pg (25.7-33.7); MCHC 33.2 g/dl (32.0-35.9); MEAN CELL VOLUME 100.7 fl (80-96); MEAN PLT VOLUME 9.5 fl (7.5-11.1); PLATELET COUNT 151 10^3/uL (134-434); RBC 3.77 M/mm3 (4.00-5.60); RDW 13.8 % (11.9-15.9); WHITE BLOOD COUNT 5.9 K/mm3 (4.0-10.0)
[2021-05-28 10:58] LABS: CALCIUM 8.9 mg/dL (8.5-10.1)
[2021-05-28 10:59] LABS: ALBUMIN 3.1 g/dl (3.4-5.0); BLOOD UREA NITROGEN 13.5 mg/dL (7-18)
[2021-05-28] MEDS ORDERED: MODERNA COVID-19 VACC,MRNA/PF 50 MCG/0.25 ML EACH IM ONE (11:00)
[2021-05-28 11:03] LABS: BILIRUBIN,TOTAL 0.4 mg/dL (0.2-1); CREATININE 0.9 mg/dL (0.55-1.3); TOT PROT 7.3 g/dl (6.4-8.2)
[2021-05-28] MEDS: LIDOCAINE 5% TOPICAL PATCH TP SCH (13:35)
[2021-05-28 16:46] LABS: SYPHILIS W/ RPR CONF NON-REACTIVE (NONREACTIVE)
[2021-05-28 17:29] LABS: HIV INTERPRETATION NEGATIVE (NEGATIVE)
[2021-05-28] MEDS: THIAMINE HCL 100 MG TABLET (FP) PO SCH (22:35)
[2021-05-28] MEDS: QUEtiapine FUMARATE 100 MG TABLET (FP) PO SCH (22:36)
[2021-05-28] MEDS: LIDOCAINE PATCH REMOVAL MC SCH (22:39)
[2021-05-28] MEDS: MELATONIN 5 MG TABLETS PO SCH (22:49)
[2021-05-29] MEDS: GABAPENTIN 100 MG CAPSULE PO SCH ×3 (05:13→23:06)
[2021-05-29] MEDS: hydrOXYzine PAMOATE 25 MG CAPSULE (FP) PO SCH ×5 (05:13→23:13)
[2021-05-29] MEDS: chlordiazePOXIDE HCL 10 MG CAPSULE PO SCH ×2 (05:14→17:39)
[2021-05-29] MEDS: levETIRAcetam 500 MG TABLET (FP) PO SCH ×2 (10:04→23:03)
[2021-05-29] MEDS: AMMONIUM LACTATE 12% LOTION 225 GM BOTTLE TP SCH ×2 (10:04→23:07)
[2021-05-29] MEDS: NADOLOL 20 MG TABLET (FP) PO SCH (10:04)
[2021-05-29] MEDS: amLODIPine BESYLATE 5 MG TABLET (FP) PO SCH (10:05)
[2021-05-29] MEDS: LIDOCAINE 5% TOPICAL PATCH TP SCH (10:05)
[2021-05-29] MEDS: PRENATAL VITAMINS W/ FOLIC ACID TABLET (FP) PO SCH (10:05)
[2021-05-29] MEDS: NICOTINE 7 MG/24 HOURS TOPICAL PATCH TD SCH (10:05)
[2021-05-29] MEDS: PANTOPRAZOLE 20 MG TABLET PO SCH (10:05)
[2021-05-29] MEDS: BUDESONIDE/FORMETEROL FUMARATE 160/4.5 mcg INHALER IH SCH ×2 (10:05→23:13)
[2021-05-29] MEDS: LACOSAMIDE 50 MG TABLET PO SCH ×2 (10:40→23:00)
[2021-05-29] MEDS ORDERED: METHOCARBAMOL 500 MG TABLET PO PRN (19:10)
[2021-05-29] MEDS: QUEtiapine FUMARATE 100 MG TABLET (FP) PO SCH (23:05)
[2021-05-29] MEDS: MELATONIN 5 MG TABLETS PO SCH (23:06)
[2021-05-29] MEDS: LIDOCAINE PATCH REMOVAL MC SCH (23:09)
[2021-05-29] MEDS: THIAMINE HCL 100 MG TABLET (FP) PO SCH (23:13)
[2021-05-30] MEDS ORDERED: chlordiazePOXIDE HCL 10 MG CAPSULE PO ONE (05:00)
[2021-05-30] MEDS: hydrOXYzine PAMOATE 25 MG CAPSULE (FP) PO SCH ×2 (06:12→11:01)
[2021-05-30] MEDS: GABAPENTIN 100 MG CAPSULE PO SCH (06:12)
[2021-05-30 10:08] LABS: SARS-CoV-2 NAA Not Detected (Not Detected)
[2021-05-30] MEDS: levETIRAcetam 500 MG TABLET (FP) PO SCH (10:14)
[2021-05-30] MEDS: PANTOPRAZOLE 20 MG TABLET PO SCH (10:14)
[2021-05-30] MEDS: PRENATAL VITAMINS W/ FOLIC ACID TABLET (FP) PO SCH (10:14)
[2021-05-30] MEDS: NADOLOL 20 MG TABLET (FP) PO SCH (10:14)
[2021-05-30] MEDS: BUDESONIDE/FORMETEROL FUMARATE 160/4.5 mcg INHALER IH SCH (10:15)
[2021-05-30] MEDS: amLODIPine BESYLATE 5 MG TABLET (FP) PO SCH (10:15)
[2021-05-30] MEDS: NICOTINE 7 MG/24 HOURS TOPICAL PATCH TD SCH (10:15)
[2021-05-30] MEDS: LACOSAMIDE 50 MG TABLET PO SCH (10:15)
[2021-05-30] MEDS: LIDOCAINE 5% TOPICAL PATCH TP SCH (10:15)
[2021-05-30] MEDS: AMMONIUM LACTATE 12% LOTION 225 GM BOTTLE TP SCH (10:16)
[2021-05-30 11:23] VITALS: BP 130/76; PULSE 92; TEMP 97.7
[2021-05-30] MEDS ORDERED: SUVOREXANT 10 MG TABLET PO PRN (22:00)
== END 2021-05-30 11:31 | disposition home or self-care (01) | DRG 774 ==
LOC: YASAS 09:05 → Y6N 11:56
PROVIDERS: ADMIT Allergy & Immunology; ATTEND Allergy & Immunology
PROC: HZ2ZZZZ Detoxification Services for Substance Abuse Treatment (ICD-10-PCS; principal; 2021-05-25)
DX: F10.230 Alcohol dependence with withdrawal, uncomplicated (principal); F14.20 Cocaine dependence, uncomplicated; F12.20 Cannabis dependence, uncomplicated; F19.24 Other psychoactive substance dependence with psychoactive substance-induced mood disorder; F32.A Depression, unspecified; F43.10 Post-traumatic stress disorder, unspecified; I10 Essential (primary) hypertension; G40.909 Epilepsy, unspecified, not intractable, without status epilepticus; B19.20 Unspecified viral hepatitis C without hepatic coma; K21.9 Gastro-esophageal reflux disease without esophagitis; L98.8 Other specified disorders of the skin and subcutaneous tissue; W18.39XA Other fall on same level, initial encounter; Y93.89 Activity, other specified; Y92.238 Other place in hospital as the place of occurrence of the external cause; R26.2 Difficulty in walking, not elsewhere classified; Z99.89 Dependence on other enabling machines and devices; Z87.891 Personal history of nicotine dependence; Z91.011 Allergy to milk products; Z56.0 Unemployment, unspecified; Z59.00 Homelessness unspecified
CPT/HCPCS: 0013A; 36415; 80053; 85027; 86780; 86803; 87389; 91301; 93005; 93010; C9803; U0003; U0005